=== PATIENT | male | born 1975 | race Caucasian/White ===

== ENCOUNTER 2018-06-11 09:07 | Emergency (ER) | payer OTHER, MEDICAID ==
[~2018-06-11] VITALS: Ht 160 cm; Wt 64.0 kg
[2018-06-11 09:08] VITALS: BP 123/57
--- NOTE | 2018-06-11 09:15 | NUR ---
PATIENT AMBULATED WITH ASSISTANCE TO BED 1
[2018-06-11] MEDS ORDERED: BISA5ECT43 PO (09:24)
--- NOTE | 2018-06-11 09:25 | NUR ---
42 yo m bib caregivers from [facility] for a laceration to the chin s/p fall onto hard wood devendra x this AM. per caregivers, pt was having a behavioral outburst (usual to baseline) and threw himself to the floor, bumping chin. approx 0.5 inch laceration to chin noted, bleeding controlled. DENIES loc OR n/v. neuro to baseline. perrla. rr even and unlabored. hx severe intellectual disability, hyperkalemia, hypothyroidism, behavioral issue rx bisacodyl prn, mineral oil, unifiber powder, saline mist, quetiapine, levothyroxine, docusate, promethazine, lorazepam, risperidone, benztropine
[2018-06-11] MEDS ORDERED: FLEMIN PO (09:26)
--- NOTE | 2018-06-11 09:27 | NUR ---
Patient being evaluated by DR SHAH at bedside.
[2018-06-11] MEDS ORDERED: QUET200T43 PO (09:29)
[2018-06-11] MEDS ORDERED: [UNRECOGNIZED DRUG - CODE] PO (09:29)
[2018-06-11] MEDS ORDERED: [UNRECOGNIZED DRUG - CODE] PO (09:29)
[2018-06-11] MEDS ORDERED: SODI45SP3 NS (09:29)
[2018-06-11] MEDS ORDERED: LEVO0.029 PO (09:29)
[2018-06-11] MEDS ORDERED: LIDOCAINE 2% 1000 MG/50 ML VIAL INJ ONE ×2 (09:30→09:39)
[2018-06-11] MEDS ORDERED: DOCU-299 PO (09:32)
[2018-06-11] MEDS ORDERED: LORA-476 PO (09:32)
[2018-06-11] MEDS ORDERED: PHE25S PO (09:32)
[2018-06-11] MEDS ORDERED: RISP0.5T3 PO (09:35)
[2018-06-11] MEDS ORDERED: ACET325T66 PO (09:35)
[2018-06-11] MEDS ORDERED: BENZ-248 PO (09:35)
--- NOTE | 2018-06-11 10:16 | NUR ---
SUTURE LAC WOUND TO CHIN DONE BY DR SHAH. PT TOLERATED PROCEDURE WELL.
[2018-06-11] MEDS ORDERED: BACITRACIN OINT 500 UNITS/GM PKT TP ONE (10:25)
--- NOTE | 2018-06-11 10:28 | NUR ---
CLEAN WOUND BY WAYNE MCKEON
[2018-06-11 10:29] VITALS: BP 121/61
--- NOTE | 2018-06-11 10:29 | NUR ---
Patient discharged with v/s stable. Written and verbal after care instructions given and explained. Patient verbalized understanding. Ambulatory with steady gait. All questions addressed prior to discharge. Advised to follow up with PMD.
== END 2018-06-11 10:29 | disposition home or self-care (01) ==
LOC: MED 09:07
DX: S01.81XA Laceration without foreign body of other part of head, initial encounter (principal); F79 Unspecified intellectual disabilities; Z88.8 Allergy status to other drugs, medicaments and biological substances; Z79.899 Other long term (current) drug therapy; Z79.1 Long term (current) use of non-steroidal anti-inflammatories (NSAID); W22.8XXA Striking against or struck by other objects, initial encounter; Y93.89 Activity, other specified; Y92.210 Daycare center as the place of occurrence of the external cause; Y99.8 Other external cause status
CPT/HCPCS: 12013; 99283; J2001

== ENCOUNTER 2019-01-16 11:50 | Inpatient (IN) | payer OTHER, MEDICAID ==
[~2019-01-16] VITALS: Ht 165.1 cm; Wt 63.0 kg
[~2019-01-16 11:50] MED LIST: ACET325T66 PO; BENZ-248 PO; BISA5ECT43 PO; DOCU-299 PO; FLEMIN PO; LEVO0.029 PO; LORA-476 PO; PHE25S PO; QUET200T43 PO; RISP0.5T3 PO; SODI45SP3 NS; [UNRECOGNIZED DRUG - CODE] PO; [UNRECOGNIZED DRUG - CODE] PO
[2019-01-16] MEDS ORDERED: TRAZ-343 PO (12:04)
--- NOTE | 2019-01-16 13:22 | NUR ---
Patient being evaluated by physician at bedside.
--- NOTE | 2019-01-16 13:22 | NUR ---
PT TAKEN TO BED 8.
--- NOTE | 2019-01-16 13:24 | NUR ---
ER AT BEDSIDE
[2019-01-16] MEDS ORDERED: NACL 0.9% 1,000 ML IV SCH (13:27)
[2019-01-16] MEDS ORDERED: LORazepam 2 MG/ML VIAL IVP ONE ×2 (13:30→16:10)
--- NOTE | 2019-01-16 13:36 | NUR ---
PT BIB MOLD POLISHER C/O VOMMITING. MOLD POLISHER REPORTS 2-3 EPISODES OF EMESIS TODAY. LAST BM YESTERDAY. PT FROM [facility]". VSS. HX---PROFOUND ID, RX===
[2019-01-16] MEDS ORDERED: HALOPERIDOL IM 5 MG/ML VIAL IM ONE ×2 (14:10→15:50)
--- NOTE | 2019-01-16 14:11 | NUR ---
PT STILL AGITATED, ROLLING IN BED, TRYING TO PULL OUT IV, PT HAS 2 CARETAKERS SITTING W/ PT PREVENTING HIM FROM PULLING OUT IV/FALLING ON FLOOR. ER MD NOTIFIED THAT ATIVAN DID NOT CALM PT.
[2019-01-16 14:16] LABS: BASOPHILS % (AUTO) 0.4 % (0.0-2.0); EOSINOPHILS # (AUTO) 0.1 K/uL (0-0.4); EOSINOPHILS % (AUTO) 0.9 % (0.0-4.0); HEMATOCRIT 38.3 % (36-52); HEMOGLOBIN 12.8 g/dL (12.0-18.0); LYMPHOCYTES # (AUTO) 0.8 K/uL (2.0-11.5); LYMPHOCYTES % (AUTO) 8.2 % (20.5-51.1); MEAN CORPUSCULAR HEMOGLOBIN 33 pg (27-31); MEAN CORPUSCULAR HGB CONC 33 g/dL (33-37); MEAN CORPUSCULAR VOLUME 97.2 fL (80-94); MONOCYTES # (AUTO) 0.4 K/uL (0.8-1.0); MONOCYTES % (AUTO) 4.4 % (1.7-9.3); NEUTROPHILS # (AUTO) 7.9 K/uL (1.8-7.7); NEUTROPHILS % (AUTO) 86.1 % (42.2-75.2); PLATELET COUNT (AUTO) 221 K/uL (140-450); RED BLOOD CELL COUNT(AUTO) 3.94 MIL/uL (4.20-6.10); RED CELL DISTRIBUTION WIDTH 13.9 % (11.6-13.7); WHITE BLOOD COUNT (AUTO) 9.2 K/uL (4.8-10.8)
[2019-01-16 14:31] LABS: PROTHROMBIN TIME 10.9 secs (10.8-13.4)
[2019-01-16 15:02] LABS: CARBON DIOXIDE 25.8 mmol/L (21-32); CREATININE 1.4 mg/dL (0.7-1.3); POTASSIUM 3.8 mmol/L (3.5-5.1); TOTAL BILIRUBIN 0.4 mg/dL (0.0-1.0)
[2019-01-16 15:03] LABS: ALBUMIN 2.4 g/dL (3.4-5.0)
[2019-01-16 15:39] LABS: APPEARANCE,URINE CLEAR (CLEAR); BILIRUBIN,URINE NEGATIVE (NEGATIVE); BLOOD, URINE NEGATIVE (NEGATIVE); COLOR,URINE YELLOW (YELLOW); LEUKOCYTE ESTERASE ,URINE NEGATIVE (NEGATIVE); NITRITE, URINE NEGATIVE (NEGATIVE); UGLUCOSE NEGATIVE (NEGATIVE)
[2019-01-16] MEDS ORDERED: NACL 0.9% 1,000 ML IV ONE (15:50)
--- NOTE | 2019-01-16 15:57 | NUR ---
X-RAY AT BEDSIDE
--- NOTE | 2019-01-16 16:00 | NUR ---
PT HAS TO BE HELD BY CARETAKERS TO OBTAIN X-RAY, UNABLE TO GET VITAL SIGNS, PT REFUSES TO WEAR HOSPITAL GOWN, NITHYA BOURGEOIS MADE AWARE.
--- NOTE | 2019-01-16 16:24 | NUR ---
PT STILL UNWILLING TO LAY IN BED, UNABLE TO PERFORM CT, ER MADE AWARE
[2019-01-16] MEDS ORDERED: ONDANSETRON 4 MG/2 ML VIAL IVP ONE (16:50)
[2019-01-16] MEDS ORDERED: fentaNYL 0.05 MG/ML VIAL IVP ONE ×2 (16:50→18:10)
--- NOTE | 2019-01-16 17:08 | NUR ---
PT O2 DROPPED TO 90%, PLACED ON 2L VIA NASAL CANNULA, 02 INCREASED TO 95%
--- NOTE | 2019-01-16 17:09 | NUR ---
PT GOING TO CT AT THIS TIME
--- NOTE | 2019-01-16 17:24 | NUR ---
Patient returned from CT and placed in bed 8.
--- NOTE | 2019-01-16 17:25 | NUR ---
PT RETURNED FROM CT AT THIS TIME
--- NOTE | 2019-01-16 17:33 | NUR ---
LAB AT BEDSIDE
[2019-01-16] MEDS ORDERED: ONDANSETRON 4 MG/2 ML VIAL IVP PRN (17:45)
[2019-01-16] MEDS ORDERED: HYDROcodone/APAP 7.5/325 MG 1 TAB PO PRN (17:45)
[2019-01-16] MEDS ORDERED: ACETAMINOPHEN 325 MG TAB PO PRN (17:45)
[2019-01-16] MEDS ORDERED: LIDOCAINE MPF 1% 10 MG/ML VIAL INJ ONE (18:10)
[2019-01-16] MEDS ORDERED: MIDAZOLAM 2 MG/2 ML VIAL IVP ONE (18:10)
[2019-01-16] MEDS ORDERED: PIPERACILLIN/TAZOBACTAM 3.375 GM in DEXTROSE 5% 50 ML IV SCH (18:30)
[2019-01-16 18:39] LABS: FREE T4 (FREE THYROXINE) 1.14 ng/dL (0.76-1.46); MAGNESIUM 1.6 mg/dL (1.8-2.4); THYROID STIMULATING HORMONE 0.25 uIU/mL (0.34-3.74)
--- NOTE | 2019-01-16 18:58 | NUR ---
# 14 FR NG tube placed to RT nare. Placement checked by auscultation of instilled air into stomach and aspiration of gastric contents. Tubing taped in place to prevent dislodging. PT ATTEMPTING TO REMOVE NG TUBE, PLACED IN SOFT RESTRANTS, 2 OF PT CARETAKERS SITTING AT BEDSIDE TO MAKE SURE PT DOES NOT REMOVE NG TUBE.
[2019-01-16] MEDS ORDERED: metroNIDAZOLE 500 MG/NS PREMIX 100 ML IV SCH (19:00)
[2019-01-16] MEDS ORDERED: PIPERACILLIN/TAZOBACTAM 3.375 GM VIAL IV ONE ×2 (19:03→23:10)
--- NOTE | 2019-01-16 19:03 | NUR ---
XRAY AT BEDSIDE.
--- NOTE | 2019-01-16 19:15 | NUR ---
RECEIVED REPORT FROM JORY GOMES. PT IN BED AWAKE, RR EVEN UNLABORED, PT CALM AT THIS TIME, PRIVATE CAREGIVER AT BEDSIDE. PT TO BE ADMITTED, AWAITING FOR SURGEON TO SEE PT. WILL CONTINUE TO MONITOR CLOSELY.
--- NOTE | 2019-01-16 19:20 | NUR ---
PT HAS CONSERVATORSHIP, PER INVENTORY SPECIALIST MANAGER MOTHER IS CONSERVATOR. HER NAME IS CLEOPATRA, PHONE # [phone] AND [phone].
--- NOTE | 2019-01-16 19:46 | NUR ---
DR. ELENA AT BEDSIDE
[2019-01-16] MEDS ORDERED: fentaNYL 0.05 MG/ML VIAL ONE (19:57)
[2019-01-16] MEDS ORDERED: MIDAZOLAM 2 MG/2 ML VIAL ONE (19:57)
[2019-01-16] MEDS ORDERED: MEPERIDINE 50 MG/ML SYR ONE (19:58)
--- NOTE | 2019-01-16 19:59 | NUR ---
OR TEAM AT BEDSIDE
--- NOTE | 2019-01-16 20:04 | NUR ---
Patient will be admitted to care of DR. FRY. PT TRANPORTED TO OR FOR PROCEDURE, TRANSPORTED BY 2 OR NURSES, BEDSIDE REPORT GIVEN TO JORY JAMES. PT IN STABLE CONDITION UPON TRANSPORT VIA GURNEY TO OR.
--- NOTE | 2019-01-16 20:04 | NUR ---
OR TEAM HERE, REPORT GIVEN TO JORY JAMES. PT TRANSPORTED TO OR VIA JASMINE WOODSON IN STABLE CONDITION AT THIS TIME.
--- NOTE | 2019-01-16 20:04 | NUR ---
DR. MCLEOD AT BEDSIDE
[2019-01-16] MEDS ORDERED: GLYCOPYRROLATE 0.2 MG/ML VIAL ONE (20:10)
[2019-01-16] MEDS ORDERED: SUCCINYLCHOLINE CHLORIDE 200 MG/10 ML VIAL IVP ONE (20:10)
[2019-01-16] MEDS ORDERED: SEVOFLURANE 250 ML BTL INH ONE (20:10)
[2019-01-16] MEDS ORDERED: PROPOFOL 200 MG/20 ML VIAL IV ONE (20:10)
[2019-01-16] MEDS ORDERED: NEOSTIGMINE 1:1000 10 MG/10 ML VIAL ONE (20:10)
[2019-01-16] MEDS ORDERED: ROCURONIUM 50 MG/5 ML VIAL IV ONE (20:10)
[2019-01-16] MEDS ORDERED: traZODone 50 MG TAB PO PRN (20:20)
[2019-01-16] MEDS ORDERED: PROMETHAZINE 25 MG SUPP RC PRN (20:20)
[2019-01-16] MEDS ORDERED: DOCUSATE SODIUM 100 MG GELCAP PO SCH (21:00)
[2019-01-16] MEDS ORDERED: SODIUM CHLORIDE 0.65% 45 ML BTL NS SCH (21:00)
[2019-01-16] MEDS ORDERED: METHYLENE BLUE 1% 10 MG/ML AMP ONE (21:32)
[2019-01-16] MEDS ORDERED: POTASSIUM CHLORIDE 10 MEQ in LACTATED RINGERS 1,000 ML IV SCH (22:00)
--- NOTE | 2019-01-16 22:20 | NUR ---
ADMITTED PT FROM SURGERY S/P EXPLORATORY LAPAROTOMY VIA BED.WITH SURGICAL TEAM AT BEDSIDE.REPORT GIVEN BY RONNIE MEHTA RN AND DR GOMEZ. MONITORS ATTACHED.SR ON MONITOR.PT ON FACE MASK AT 6LPM.PT HAS HX OF DOWNS SYNDROME AND PROFOUND INTELLECTUAL DISABILITY.PUPILS BRISK.W/NGT TO RT NARES CLAMPED.IN PLACE.W/MICHELLE DRAIN TO RT ABDOMEN,SCANTY SEROSANGUINEOUS OUTPUT NOTED.W/DRY AND INTACT DRESSING TO ABDOMENW/PERIPHERAL IV TO LT F/A G20 INTACT INFUSING ORDERED IVF.W/CALZADA CATHETER TO BSD DRAINING SMALL AMT OF YELLOW URINE.FLACC 0
[2019-01-16 22:30] VITALS: BP 116/64
--- NOTE | 2019-01-16 22:30 | NUR ---
PER REPORT; PT WAS ON 4 POINT RESTRAINTS IN ER.PT TRIES TO PULL OUT NGT AND IV. DR RODRIGUEZ AT BEDSIDE AND ORDERED BILATERAL SOFT WRIST RESTRAINTS.CONSENT FROM PTS MOTHER OBTAINED.
--- NOTE | 2019-01-16 23:00 | NUR ---
NGT CONNECTED TO LOW INTERMITTENT SUCTION ORDERED BY DR ELENA WITH 20ML NORMAL SALINE FLUSH Q6HRS.
[2019-01-16] MEDS ORDERED: metroNIDAZOLE 500 MG TAB ONE (23:08)
[2019-01-16] MEDS ORDERED: risperiDONE 1 MG TAB ONE (23:09)
[2019-01-16] MEDS: LORazepam 1 MG TAB PO SCH (23:16)
[2019-01-16] MEDS: risperiDONE 1 MG TAB PO SCH (23:16)
[2019-01-16] MEDS: DEXT 5% / NACL 0.45% 1,000 ML IV SCH (23:17)
[2019-01-16] MEDS: PIPERACILLIN/TAZOBACTAM 3.375 GM in DEXTROSE 5% 50 ML IV SCH (23:18)
[2019-01-16] MEDS ORDERED: metroNIDAZOLE 500 MG/NS PREMIX 100 ML IV ONE (23:19)
--- NOTE | 2019-01-16 23:20 | NUR ---
PHONE CALL TO DR RODRIGUEZ RE; WITH ONE DOSE FLAGYL ORDERED AT 1900; NOT GIVEN UP TO THIS TIME; PT ADMITTED IN ICU AT 2220; DR RODRIGUEZ SAID TO ADMINISTER THE FLAGYL Addendum: 01/17/19 at 2026 by Paula Santoyo RN FLAGYL AND ZOSYN SCANNED AND ADMINISTERED;
[2019-01-16] MEDS: BENZTROPINE 1 MG TAB PO SCH (23:27)
[2019-01-16] MEDS ORDERED: MORPHINE SULFATE 2 MG/ML SYR IVP PRN (23:30)
[2019-01-17] VITALS (11 sets, daily range): BP systolic 87–125; BP diastolic 57–73
[2019-01-17] MEDS: LORazepam 2 MG/ML VIAL IVP PRN ×2 (01:10→09:43)
--- NOTE | 2019-01-17 01:10 | NUR ---
PT RESTLESS/AGITATED; ATIVAN GIVEN ORDERED.
--- NOTE | 2019-01-17 03:20 | NUR ---
PTS EYES CLOSED.NOT IN ANY DISTRESS AT THIS TIME.NSR ON MONITOR.FLACC 0.STILL WITH BILATERAL SOFT WRIST RESTRAINTS IN PLACE.NO SIGNS OF INJURIES NOTED.
[2019-01-17] MEDS ORDERED: PIPERACILLIN/TAZOBACTAM 3.375 GM VIAL IV ONE (04:25)
[2019-01-17] MEDS: PIPERACILLIN/TAZOBACTAM 3.375 GM in DEXTROSE 5% 50 ML IV SCH ×3 (05:03→18:09)
[2019-01-17] MEDS: LEVOTHYROXINE 0.025 MG TAB PO SCH (05:52)
--- NOTE | 2019-01-17 06:10 | NUR ---
PTS CONDITION REMAINS UNCHANGED.NGT TO RT NARES CLAMPED AT THIS TIME, LEVOTHYROXINE GIVEN ORDERED.PERIPHERAL IV INTACT INFUSING ORDERED IVF.BILATERAL SOFT WRIST RESTRAINTS STILL IN PLACE; PT TRIES TO PULL NGT/DRESSING WHEN AWAKE.MICHELLE DRAIN INTACT WITH 60ML SEROUS DRAINAGE NOTED.CALZADA CATHETER INTACT 200ML URINE OUTPUT.
[2019-01-17 06:22] LABS: ANION GAP 11.4 (8-16); CARBON DIOXIDE 26.1 mmol/L (21-32); CREATININE 1.5 mg/dL (0.7-1.3); POTASSIUM 4.5 mmol/L (3.5-5.1)
[2019-01-17 06:26] LABS: MAGNESIUM 1.6 mg/dL (1.8-2.4); PHOSPHORUS 3.2 mg/dL (2.5-4.9)
[2019-01-17 06:32] LABS: CHOL/HDL RATIO 2.7 (1-4.5)
[2019-01-17 06:55] LABS: BASOPHILS % (AUTO) 0.1 % (0.0-2.0); EOSINOPHILS % (AUTO) 0.1 % (0.0-4.0); HEMATOCRIT 42.1 % (36-52); HEMOGLOBIN 13.9 g/dL (12.0-18.0); LYMPHOCYTES # (AUTO) 0.3 K/uL (2.0-11.5); LYMPHOCYTES % (AUTO) 2.7 % (20.5-51.1); MEAN CORPUSCULAR HEMOGLOBIN 33 pg (27-31); MEAN CORPUSCULAR HGB CONC 33 g/dL (33-37); MEAN CORPUSCULAR VOLUME 98.3 fL (80-94); MONOCYTES # (AUTO) 0.5 K/uL (0.8-1.0); MONOCYTES % (AUTO) 4.5 % (1.7-9.3); NEUTROPHILS # (AUTO) 9.9 K/uL (1.8-7.7); NEUTROPHILS % (AUTO) 92.6 % (42.2-75.2); PLATELET COUNT (AUTO) 205 K/uL (140-450); RED BLOOD CELL COUNT(AUTO) 4.28 MIL/uL (4.20-6.10); RED CELL DISTRIBUTION WIDTH 14.2 % (11.6-13.7); WHITE BLOOD COUNT (AUTO) 10.7 K/uL (4.8-10.8)
--- NOTE | 2019-01-17 07:20 | NUR ---
RECEIVED PT FROM PM NURSE. PT SLEEPING AT THIS TIME. BEDSIDE MONITOR SHOWS SR 98. BP 112/71, RR 25. SPO2 96%. PT ON O2 NC 2L/MIN, NO S/S OF RESPIRATORY DISTRESS NOTED. PT HAS NG TUBE TO RT NARE CONNECTED TO LOW INTERMITTENT SUCTION. PT ALSO HAS MICHELLE DRAIN IN PLACE. PT HAS IV TO LEFT F/A # 20 RUNNING D5 1/2 NS AT 100 ML/HR. SURGICAL SITE DRY , DR. ELENA SURGEON AT BEDSIDE TO ASSESS PT. PT HAS HAS F/C IN PLACE. CALLED RADIOLOGIST DEPARTMENT FOR XR UPPER GI W GASTROGRAFFIN. TEMP 100.1 F. WILL GIVE ICE BAGS. HOB ELEVATED IN 30 DEGREE WITH LOW BED POSITION. WILL CONTINUE TO MONITOR.
--- NOTE | 2019-01-17 08:56 | NUR ---
PATIENT HAS BEEN SCREENED AND CATEGORIZED HIGH NUTRITION RISK. PATIENT WILL BE SEEN WITHIN 1-2 DAYS OF ADMISSION. 01/17/19-01/18/[address]
--- NOTE | 2019-01-17 09:20 | NUR ---
pt left unit for gastrograffin at 0820, accompanied with RN and Tech. pt was agitated in x-ray room. Ativan 1 mg given at 0825. pt came back at 0920 without incidence.
[2019-01-17] MEDS: LORazepam 1 MG TAB PO SCH ×2 (09:41→21:54)
[2019-01-17] MEDS: QUEtiapine FUMARATE 100 MG TAB PO SCH ×3 (09:41→18:08)
--- NOTE | 2019-01-17 09:41 | NUR ---
pt temp 100.4 F. Tylenol given as ordered.
[2019-01-17] MEDS: DOCUSATE 100 MG/10 ML UDC GT SCH ×2 (09:42→21:54)
[2019-01-17] MEDS: BENZTROPINE 1 MG TAB PO SCH ×2 (10:03→21:54)
[2019-01-17] MEDS: risperiDONE 1 MG TAB PO SCH ×2 (10:03→21:55)
[2019-01-17] MEDS: SODIUM CHLORIDE 0.65% 45 ML BTL NS SCH ×2 (10:04→21:56)
[2019-01-17] MEDS ORDERED: KETOROLAC 15 MG/ML VIAL IVP SCH (11:02)
--- NOTE | 2019-01-17 11:07 | NUR ---
pt temp increased to 101 F, notified dr. Ballard. order received, will carry out.
[2019-01-17] MEDS: DEXT 5% / NACL 0.45% 1,000 ML IV SCH ×3 (11:20→23:21)
--- NOTE | 2019-01-17 11:30 | NUR ---
RECHECKED TEMP 99.1F.
--- NOTE | 2019-01-17 11:58 | NUR ---
NG TUBE PULLED OUT PER PHONE CALL FROM RADIOLOGIST. DR. ZAMAN MADE AWARE. PLASTIC CANISTER HAS 150 CC GREENISH SECRETION .
[2019-01-17] MEDS: MAG SULF 2000 MG/WATER PREMIX 100 ML IV SCH ×2 (12:29→14:43)
--- NOTE | 2019-01-17 12:30 | NUR ---
pt's temp decreased to F98.6
--- NOTE | 2019-01-17 13:30 | NUR ---
in to check pt. had conversation with pt's parent.
--- NOTE | 2019-01-17 14:30 | NUR ---
INSERTED NG TUBE TO RIGHT NARE. GREENISH SECRETION COMING OUT FROM NG TUBE. SECURED WITH TAPE.
--- NOTE | 2019-01-17 16:11 | NUR ---
01/17/19 RD INITIAL ASSESSMENT COMPLETED PLEASE REFER TO NUTRITION ASSESSMENT UNDER CARE ACTIVITY FOR ESTIMATED NUTRITIONAL NEEDS. 1. CONTINUE NPO MEDICALLY APPROPRIATE 2. CONSIDER SWALLOW EVALUATION 3. CONSIDER REGULAR DIET WITH FOOD TEXTURES AND LIQUID CONSISTENCIES RECOMMENDED BY SPEECH THERAPIST 4. RD TO FOLLOW-UP 2-3 DAYS, HIGH RISK COLETTE HARTLEY RD
--- NOTE | 2019-01-17 16:30 | NUR ---
pt resting quietly in bed. no s/s of respiratory distress noted.
--- NOTE | 2019-01-17 18:49 | NUR ---
RECEIVED PATIENT ON 2L NASAL CANNULA, PULSE OX SAT 95%. NO ACUTE RESPIRATORY DISTRESS NOTED AT THIS TIME. WILL CONTINUE TO MONITOR.
--- NOTE | 2019-01-17 19:00 | NUR ---
endorsed pt to pm nurse. pt vitals stable at this moment.
--- NOTE | 2019-01-17 20:05 | NUR ---
PT ASLEEP. REMOVED BILATERAL ANKLE RESTRAINTS. WILL REASSESS FOR NEED LATER.
--- NOTE | 2019-01-17 22:44 | NUR ---
PT AT BED AWAKE. PERRL 3MM, PT CALM, COOPERATIVE, HEART RATE REGULAR S1S2 PRESENT, PULSES 2+ BILATERAL UPPER AND LOWER EXTREMITIES, CAP REFILL <3S, LUNG SOUNDS CLEAR THROUGHOUT, PT HAS NC RUNNING 02 AT 2L/MIN, ABDOMEN, SOFT, ROUND, NONDISTENDED, NONTENDER, PT HAS NG TUBE AT RIGHT NARE ON INTERMITTENT SUCTION, SUCTIONED BROWN LIQUID, BLADDER, SOFT, ROUND, NONDISTENDED, NONTENDER, FC IN PLACE, DRAINING YELLOW CLEAR URINE, PT HAS GENERALIZED WEAKNESS, PT HAS BILATERAL SCD IN PLACE. SKIN INTACT, COLOR APPROPRIATE FOR ETHNICITY, SKIN DRY, WARM, NON-ELASTIC PT HAS LEFT FA 20 GAUGE IV RUNNING D5 1/2 NS AT 100 ML/HR. HOB 30 DEGREES, SIDERAILS UP X2, BED AT LOWEST POSITION. Addendum: 01/17/19 at 2309 by Hamlet Castellanos RN CORRECTION: TIME 191 Addendum: 01/18/19 at 0206 by Hamlet Castellanos RN BILATERAL SOFT WRIST AND ANKLES RESTRAINTS PRESENT
--- NOTE | 2019-01-17 22:50 | NUR ---
UPDATED DR. ELENA ABOUT PT PRELIMINARY REPORT FOR XRAY UPPER GI AND SMALL BOWEL XRAY. NO NEW ORDERS AT THIS TIME.
[2019-01-18] VITALS: BP 98/56
--- NOTE | 2019-01-18 01:20 | NUR ---
PT AT BED EYES CLOSED, BREATHING REGULARLY, 02 2L/MIN NC IN PLACE, HOB 30 DEGREES, SIDE RAILS UP X2, BED AT LOWEST POSITION, WILL CONTINUE TO MONITOR.
[2019-01-18 04:00] VITALS: BP 107/54
[2019-01-18] MEDS: LORazepam 2 MG/ML VIAL IVP PRN ×2 (05:46→10:37)
--- NOTE | 2019-01-18 06:20 | NUR ---
TRANSFERRED TO TELEMETRY FLOOR, REPORT GIVEN TO AM NURSE. PT AT STABLE CONDITION AT THIS TIME.
[2019-01-18 06:42] LABS: BASOPHILS % (AUTO) 0.1 % (0.0-2.0); EOSINOPHILS # (AUTO) 0.8 K/uL (0-0.4); HEMATOCRIT 36.8 % (36-52); HEMOGLOBIN 12.3 g/dL (12.0-18.0); LYMPHOCYTES # (AUTO) 0.6 K/uL (2.0-11.5); MEAN CORPUSCULAR HEMOGLOBIN 33 pg (27-31); MEAN CORPUSCULAR HGB CONC 34 g/dL (33-37); MEAN CORPUSCULAR VOLUME 97.7 fL (80-94); MONOCYTES # (AUTO) 0.4 K/uL (0.8-1.0); MONOCYTES % (AUTO) 5.8 % (1.7-9.3); NEUTROPHILS # (AUTO) 5.7 K/uL (1.8-7.7); NEUTROPHILS % (AUTO) 75.1 % (42.2-75.2); PLATELET COUNT (AUTO) 156 K/uL (140-450); RED BLOOD CELL COUNT(AUTO) 3.77 MIL/uL (4.20-6.10); RED CELL DISTRIBUTION WIDTH 14.2 % (11.6-13.7); WHITE BLOOD COUNT (AUTO) 7.6 K/uL (4.8-10.8)
[2019-01-18] MEDS: LEVOTHYROXINE 0.025 MG TAB PO SCH (06:46)
--- NOTE | 2019-01-18 07:25 | NUR ---
RECEIVED REPORT FROM ROD PILER RNNE. PATIENT HAS NG TUBE IN PLACE, IS ON 2 L O2 VIA NC, CALZADA IN PLACE, AND 20 GAUGE IV CATHETER IN LEFT FOREARM SALINE LOCKED. PATIENT IS ON 2 POINT RESTRAINTS TO BOTH LEFT AND RIGHT UPPER EXTREMITY. PATIENT IS NON-VERBAL AND IS CURRENTLY RELAXED SHOWING NO SIGNS OF RESTLESSNESS OR DISTRESS. BED IS LOW. WILL CONTINUE TO MONITOR
[2019-01-18] MEDS ORDERED: MORPHINE SULFATE 2 MG/ML SYR IVP PRN (07:50)
[2019-01-18 07:56] LABS: ANION GAP 8.5 (8-16); CARBON DIOXIDE 27.5 mmol/L (21-32); CREATININE 1.3 mg/dL (0.7-1.3)
[2019-01-18 08:00] VITALS: BP 104/65
[2019-01-18 08:02] LABS: ALBUMIN 1.8 g/dL (3.4-5.0); MAGNESIUM 2.3 mg/dL (1.8-2.4); PHOSPHORUS 2.4 mg/dL (2.5-4.9); TOTAL BILIRUBIN 0.6 mg/dL (0.0-1.0)
[2019-01-18] MEDS: LORazepam 1 MG TAB PO SCH ×3 (09:00→18:26)
--- NOTE | 2019-01-18 09:20 | NUR ---
WOUND CARE CONSULT NOT DONE, SPOKE TO DR. ELENA , HE WILL BE IN TO DO FIRST DRESSING CHANGE TODAY. PRIMARY RN AND CN NOTIFIED.
--- NOTE | 2019-01-18 09:25 | NUR ---
PATIENT RELEASED FROM RESTRAINTS, PATIENT IMMEDIATELY ATTEMPTS TO REMOVED TUBES AND LINES. PROVIDED ROM, CIRCULATION CHECKS DONE, NO SIGNS OF INJURY. IV SITE FLUSHES WELL. REPLACED RESTRAINTS. BED LOW, NO DISTRESS NOTED. WILL CONTINUE TO MONITOR
[2019-01-18] MEDS: DOCUSATE 100 MG/10 ML UDC GT SCH ×2 (11:03→21:24)
[2019-01-18] MEDS: BENZTROPINE 1 MG TAB PO SCH ×2 (11:03→21:24)
[2019-01-18] MEDS: QUEtiapine FUMARATE 100 MG TAB PO SCH ×3 (11:03→18:26)
[2019-01-18] MEDS: risperiDONE 1 MG TAB PO SCH ×2 (11:03→21:24)
[2019-01-18] MEDS: SODIUM CHLORIDE 0.65% 45 ML BTL NS SCH ×2 (11:28→21:00)
--- NOTE | 2019-01-18 11:28 | NUR ---
ADMINISTERED IV ATIVAN 1 MG FOR AGITATION. ADMINISTERED SCHEDULED MEDICATIONS BUT HELD THE 1MG PO ATIVAN DUE TO RECENT ADMINISTRATION OF IV ATIVAN. HELD HEPARIN DUE TO PLATELETS OF 156 AND RECENT SURGERY, DOCTOR AWARE. ADMINISTERED IV FLUIDS. EMPTIED 100 ML FORM MICHELLE DRAIN SEROSANGUINEOUS FLUID. REPOSITIONED PATIENT FOR COMFORT, PROVIDED RESPITE FROM RESTRAINTS. PATIENT IMMEDIATELY ATTEMPTS TO REMOVE DRESSING, LINES, AND TUBES. CIRCULATION CHECKS DONE, NO SIGN OF INJURY, PROVIDED ROM. REPLACED RESTRAINTS. BED IS LOW. CALZADA CATHETER IN PLACE DRAINING CLEAR STRAW COLORED URINE. WILL CONTINUE TO MONITOR.
[2019-01-18] MEDS: DEXT 5% / NACL 0.45% 1,000 ML IV SCH (11:59)
--- NOTE | 2019-01-18 13:30 | NUR ---
REPOSITIONED PATIENT FOR COMFORT, PROVIDED RESPITE FROM RESTRAINTS. PATIENT IMMEDIATELY ATTEMPTS TO REMOVE DRESSING, LINES, AND TUBES. CIRCULATION CHECKS DONE, NO SIGN OF INJURY, PROVIDED ROM. REPLACED RESTRAINTS. EMPTIED 100 ML FORM MICHELLE DRAIN SEROSANGUINEOUS FLUID. CALZADA CATHETER IN PLACE DRAINING CLEAR STRAW COLORED URINE. BED IS LOW. WILL CONTINUE TO MONITOR.
--- NOTE | 2019-01-18 15:30 | NUR ---
ADMINISTERED IV MORPHINE 4 MG FOR PAIN. EMPTIED 100 ML FORM MICHELLE DRAIN SEROSANGUINEOUS FLUID. DISCONTINUED CALZADA CATHETER. REPOSITIONED PATIENT FOR COMFORT, PROVIDED RESPITE FROM RESTRAINTS. PATIENT IMMEDIATELY ATTEMPTS TO REMOVE DRESSING, LINES, AND TUBES. CIRCULATION CHECKS DONE, NO SIGN OF INJURY, PROVIDED ROM. REPLACED RESTRAINTS. BED IS LOW. CALZADA CATHETER IN PLACE DRAINING CLEAR STRAW COLORED URINE. WILL CONTINUE TO MONITOR Addendum: 01/18/19 at 2028 by Malaika Domínguez RN CALZADA WAS DISCONTINUED AT THIS TIME.
--- NOTE | 2019-01-18 17:25 | NUR ---
REPOSITIONED PATIENT FOR COMFORT, PROVIDED RESPITE FROM RESTRAINTS. PATIENT IMMEDIATELY ATTEMPTS TO REMOVE DRESSING, LINES, AND TUBES. CIRCULATION CHECKS DONE, NO SIGN OF INJURY, PROVIDED ROM. REPLACED RESTRAINTS. BED IS LOW. WILL CONTINUE TO MONITOR.
--- NOTE | 2019-01-18 19:15 | NUR ---
GAVE REPORT TO BUSINESS TAXES SPECIALIST RN, WILDA. ENDORSING PATIENT IN STABLE CONDITION.
--- NOTE | 2019-01-18 19:17 | NUR ---
RECEIVED PT IN STABLE CONDITION FROM AM NURSE. PT IS MED SURG. WITH NO ACUTE DISTRESS NOTED. ON O22L.NC. AWAKE, BUT APHASIC. IVF INFUSING WELL ON ELT FAG#20. PT NEED TO VOID .WILL MONITOR. HAS NGT TO INTERMITTENT SUCTION. MID ABDOMEN HAS INCISIONS WITH DAYO INTACT. NO BLEEDING ,SWELLING NOTED. SMALL DRESSING ON THE RT LOWER SIDE ABDOMEN. DRY AND CLEAN. BUT ABDOMEN EVENING ANCHOR. BED ON LOW POSITION, FREQ ROUNDS. STILL WITH PEG SOFT WRIST RESTRAINT AND MITTENS DUE TO PREVENTION OF PULLING OF TUBINGS. BED ALARM ON. CALL LIGHT PLACED WITHIN REACH. WILL CONTINUE TO MONITOR.
--- NOTE | 2019-01-18 21:25 | NUR ---
LUKE TO GIVE DUE MEDS THRU NGT. WILL CLAMPED FOR AN HOUR THEN WILL RESTART TO INTERMITTENT SUCTION.
--- NOTE | 2019-01-18 23:00 | NUR ---
PT PULLED OUT RESTRAINTS AND NGT WHILE HE GET OUT OF BED. ASSISTED PT BACK TO BED WITH 4 PERSONS ASSISTANCE. V/S TAKEN . STABLE. DR. ELENA AT STATION AND MADE HIM AWARE . HE SAID OK NOT TO PUT IT BACK. PT ALREADY VOIDED. DRESSING ON THE RT ABDOMEN INTACT. MID ABDOMINAL INCISIONS WITH DAYO INTACT. NO BLEEDING NOTED.
[2019-01-19] VITALS: BP 111/65
--- NOTE | 2019-01-19 02:00 | NUR ---
PT ASLEEP. NO S/S OF ANY DISCOMFORT NOTED. WILL CONTINUE TO MONITOR.
--- NOTE | 2019-01-19 04:32 | NUR ---
WAS CALLED REGARDING DIET. SHE SAID THEY WILL HAVE SURGEON TO DECIDE. JUST KEEP NPO FOR NOW.
[2019-01-19] MEDS: DEXT 5% / NACL 0.45% 1,000 ML IV SCH (05:30)
--- NOTE | 2019-01-19 06:00 | NUR ---
PT ASLEEP. NO S/S OF ANY DISCOMFORT NOTED.
[2019-01-19] MEDS: LEVOTHYROXINE 0.025 MG TAB PO SCH (06:30)
[2019-01-19] MEDS ORDERED: MORPHINE SULFATE 2 MG/ML SYR IVP PRN (07:15)
--- NOTE | 2019-01-19 07:30 | NUR ---
ENDORSED PT IN STABLE CONDITION TO AM NURSE.
--- NOTE | 2019-01-19 07:35 | NUR ---
RECEIVED PT FROM MANUFACTURING SALES REPRESENTATIVE NURSEWILDA, PT IS ASLEEP AND LYING ON THE BED, SAFETY AND FALL PRECAUTION INITIATED, IV LINE ON THE RT FA G. 22 WITH D5 1/2 NS INFUSING AT 50ML/HR, PT IS ON RESTRAINT, S/P EXPLORE LAP, MID-ABDOMINAL INCISIONS AND DAYO INTACT, RT ABDOMINAL AREA WAS REINFORCED WITH DRESSING FOR THE MICHELLE SITE, RESPIRATION IS EVEN AND NO SIGN OF DISTRESS NOTED. WILL MONITOR PT.
[2019-01-19 08:00] VITALS: BP 97/65
[2019-01-19] MEDS: risperiDONE 1 MG TAB PO SCH ×2 (09:00→20:28)
[2019-01-19] MEDS: LORazepam 1 MG TAB PO SCH ×3 (09:00→17:26)
[2019-01-19] MEDS: DOCUSATE 100 MG/10 ML UDC GT SCH (09:00)
[2019-01-19] MEDS: QUEtiapine FUMARATE 100 MG TAB PO SCH ×2 (09:00→20:28)
[2019-01-19] MEDS: SODIUM CHLORIDE 0.65% 45 ML BTL NS SCH (09:00)
[2019-01-19] MEDS: BENZTROPINE 1 MG TAB PO SCH (09:00)
[2019-01-19 09:14] LABS: BASOPHILS % (AUTO) 0.7 % (0.0-2.0); EOSINOPHILS # (AUTO) 0.1 K/uL (0-0.4); EOSINOPHILS % (AUTO) 1.4 % (0.0-4.0); HEMATOCRIT 38.6 % (36-52); HEMOGLOBIN 12.9 g/dL (12.0-18.0); LYMPHOCYTES # (AUTO) 0.7 K/uL (2.0-11.5); LYMPHOCYTES % (AUTO) 10.4 % (20.5-51.1); MEAN CORPUSCULAR HEMOGLOBIN 33 pg (27-31); MEAN CORPUSCULAR HGB CONC 33 g/dL (33-37); MEAN CORPUSCULAR VOLUME 97.8 fL (80-94); MONOCYTES # (AUTO) 0.4 K/uL (0.8-1.0); NEUTROPHILS # (AUTO) 5.2 K/uL (1.8-7.7); NEUTROPHILS % (AUTO) 81.5 % (42.2-75.2); PLATELET COUNT (AUTO) 166 K/uL (140-450); RED BLOOD CELL COUNT(AUTO) 3.95 MIL/uL (4.20-6.10); WHITE BLOOD COUNT (AUTO) 6.4 K/uL (4.8-10.8)
[2019-01-19 09:25] LABS: MAGNESIUM 1.8 mg/dL (1.8-2.4); PHOSPHORUS 3.6 mg/dL (2.5-4.9)
[2019-01-19 09:27] LABS: PROTHROMBIN TIME 10.2 secs (10.8-13.4)
--- NOTE | 2019-01-19 10:00 | NUR ---
PT WAS REPOSITIONED AND RESTRAINT WAS ASSESSED, ORAL MEDICATIONS WERE NOT GIVEN BECAUSE PT IS ON NPO, WAITING FOR GI MD TO SEE PT AND MAKE ORDER.
--- NOTE | 2019-01-19 12:30 | NUR ---
PT WAS REPOSITIONED AND RESTRAINT WAS CHECKED. WILL MONITOR PT.
--- NOTE | 2019-01-19 14:15 | NUR ---
PT IS AWAKE AND FAMILY ON THE BEDSIDE, RESTRAINT WAS RE-ASSESS.
--- NOTE | 2019-01-19 15:30 | NUR ---
01/19/19 RD FOLLOW UP COMPLETED PLEASE REFER TO NUTRITION ASSESSMENT UNDER CARE ACTIVITY FOR ESTIMATED NUTRITIONAL NEEDS. 1. CONTINUE NPO MEDICALLY APPROPRIATE 2. CONSIDER A SWALLOW EVALUATION WHEN PATIENT IS READY TO START PO INTAKE 3. RD TO FOLLOW-UP 2-3 DAYS, HIGH RISK COLETTE HARTLEY, RD
[2019-01-19 16:00] VITALS: BP 108/72
--- NOTE | 2019-01-19 16:10 | NUR ---
PT'S RESTRAINT WAS RELEASED AND SKIN WAS ASSESSED, NO INJURY NOTED.
[2019-01-19] MEDS: SENNA 8.6 MG TAB PO SCH (17:26)
[2019-01-19] MEDS ORDERED: SODIUM PHOSPHATE 118 ML ENEM RC SCH (17:30)
--- NOTE | 2019-01-19 18:02 | NUR ---
PT'S RESTRAINT WAS RELEASE AND SKIN INTEGRITY WAS CHECKED, NO INJURY NOTED.
--- NOTE | 2019-01-19 18:30 | NUR ---
PT WAS GIVEN ENEMA NOW.
--- NOTE | 2019-01-19 19:05 | NUR ---
ENDORSED PT TO SILK SCREEN PROCESSOR NURSELAWRENCE FOR CONTINUITY OF CARE.
--- NOTE | 2019-01-19 19:06 | NUR ---
RECD. IN BED, AWAKE, APHASIC. MENTALLY CHALLENGED. RESPIRATION EVEN AND UNLABORED. IV LINE AT THE RIGHT WRIST G22, COVERED WITH KERLIX DRESSING, PATENT AND INTACT. ON BILATERAL SOFT WRIST RESTRAINTS. INCISION IN THE ABDOMEN WITH DAYO OPEN TO AIR, DRY AND CLEAN. REORIENTED TO HOSPITAL SETTING , TOLD ABOUT PLAN OF CARE, NEEDS REINFORCEMENT. NO APPEARANCE OF PAIN NOTED 0/10.
--- NOTE | 2019-01-19 19:07 | NUR ---
Patient's Plan of Care was discussed and reviewed with ELIZABETH: LAWRENCE. WILL CONTINUE TO MONITOR.
--- NOTE | 2019-01-19 19:15 | NUR ---
TRYING TO GET OUT OF BED, PUTTING HIS LEGS OUT OF THE BED AND PULLING ON HIS BILATERAL RESTRAINTS. AGITATED AND RESTLESS.
--- NOTE | 2019-01-19 19:45 | NUR ---
INFORMED DR. RODRIGUEZ IV PULLED OUT BY PATIENT, AGITATED AND RESTLESS. WILL ORDER HALDOL.
[2019-01-19] MEDS ORDERED: HALOPERIDOL IM 5 MG/ML VIAL IM SCH (20:00)
[2019-01-19] MEDS: POLYETHYLENE GLYCOL 17 GM/PKT PO SCH (20:28)
[2019-01-19] MEDS: METOCLOPRAMIDE 10 MG/2 ML INJ VIAL IVP SCH (21:00)
--- NOTE | 2019-01-19 23:00 | NUR ---
STILL AWAKE, DID NOT SLEEP AT ALL. QUIET IN BED BUT GETS COMBATIVE WHILE PUTTING NEW IV LINE. WILL REQUEST MD TO ORDER ATIVAN IM.
[2019-01-20 00:30] VITALS: BP 103/64
[2019-01-20] MEDS ORDERED: LORazepam 2 MG/ML VIAL IM ONE (00:30)
[2019-01-20] MEDS: SODIUM CHLORIDE 0.65% 45 ML BTL NS SCH ×3 (00:35→20:29)
--- NOTE | 2019-01-20 01:18 | NUR ---
AGITATED, RESTLESS. MEDICATED WITH ATIVAN ORDERED.
--- NOTE | 2019-01-20 02:20 | NUR ---
NO AGITATION BUT STILL AWAKE, IN BED.
--- NOTE | 2019-01-20 03:00 | NUR ---
SLEEPING BUT EASILY WAKES UP AND FIGHTS WITH NURSES, NEW IV LINE INSERTED AT THE LEFT WRIST G22 BY JORY ASTUDILLO.
--- NOTE | 2019-01-20 03:05 | NUR ---
TRIED TO PUT ON 02 CANNULA BUT WAKES UP AND PULLED IT OUT.
[2019-01-20] MEDS: METOCLOPRAMIDE 10 MG/2 ML INJ VIAL IVP SCH ×4 (05:30→20:15)
--- NOTE | 2019-01-20 05:30 | NUR ---
SUSAN REGLAN GIVEN VIA IVP. NO S/S OF DISTRESS. WILL CONTINUE TO MONITOR.
[2019-01-20] MEDS: LEVOTHYROXINE 0.025 MG TAB PO SCH (06:30)
[2019-01-20 06:53] LABS: BASOPHILS % (AUTO) 0.8 % (0.0-2.0); EOSINOPHILS # (AUTO) 0.1 K/uL (0-0.4); EOSINOPHILS % (AUTO) 2.2 % (0.0-4.0); HEMATOCRIT 38.8 % (36-52); HEMOGLOBIN 12.8 g/dL (12.0-18.0); LYMPHOCYTES # (AUTO) 1.2 K/uL (2.0-11.5); LYMPHOCYTES % (AUTO) 18.6 % (20.5-51.1); MEAN CORPUSCULAR HEMOGLOBIN 32 pg (27-31); MEAN CORPUSCULAR HGB CONC 33 g/dL (33-37); MEAN CORPUSCULAR VOLUME 97.9 fL (80-94); MONOCYTES # (AUTO) 0.5 K/uL (0.8-1.0); MONOCYTES % (AUTO) 8.2 % (1.7-9.3); NEUTROPHILS # (AUTO) 4.6 K/uL (1.8-7.7); NEUTROPHILS % (AUTO) 70.2 % (42.2-75.2); PLATELET COUNT (AUTO) 172 K/uL (140-450); RED BLOOD CELL COUNT(AUTO) 3.97 MIL/uL (4.20-6.10); RED CELL DISTRIBUTION WIDTH 13.9 % (11.6-13.7); WHITE BLOOD COUNT (AUTO) 6.5 K/uL (4.8-10.8)
[2019-01-20 07:11] LABS: ANION GAP 11.8 (8-16); CARBON DIOXIDE 29.8 mmol/L (21-32); POTASSIUM 4.6 mmol/L (3.5-5.1)
--- NOTE | 2019-01-20 07:25 | NUR ---
STILL SLEEPING COMFORTABLY IN BED. CONDITION REMAIN STABLE. ENDORSED TO AM NURSE FOR CONTINUITY OF CARE.
--- NOTE | 2019-01-20 07:26 | NUR ---
RECEIVED ENDORSEMENT FROM LUGGAGE MAKER NURSE. PATIENT IS AAOX1, NONVERBAL. RESPIRATIONS ARE EVEN AND UNLABORED ON ROOM AIR. FLACC 0. LEFT WRIST 22G IV INTACT, PATENT, AND INFUSING IVF. MIDABDOMINAL INCISION NOTED. PLAN OF CARE WAS REVIEWED WITH PATIENT, PATIENT UNABLE TO VERBALIZE UNDERSTANDING. SAFETY MEASURES IN PLACE, CALL LIGHT WITHIN REACH. PATIENT IS ON RESTRAINTS.
[2019-01-20 08:00] VITALS: BP 99/60
--- NOTE | 2019-01-20 08:15 | NUR ---
PATIENT PULLED OFF IV, CANNULA INTACT. NO OTHER NEEDS AT THIS TIME, WILL CONTINUE TO MONITOR.
[2019-01-20] MEDS: risperiDONE 1 MG TAB PO SCH ×2 (09:02→20:15)
[2019-01-20] MEDS: QUEtiapine FUMARATE 100 MG TAB PO SCH ×2 (09:02→20:15)
[2019-01-20] MEDS: SENNA 8.6 MG TAB PO SCH ×3 (09:02→16:26)
[2019-01-20] MEDS: LORazepam 1 MG TAB PO SCH ×3 (09:03→16:26)
[2019-01-20] MEDS: POLYETHYLENE GLYCOL 17 GM/PKT PO SCH ×2 (09:03→16:27)
--- NOTE | 2019-01-20 09:03 | NUR ---
ADMINISTERED SCHEDULED MEDICATIONS WITH APPLESAUCE. PATIENT TOLERATED WELL. NO OTHER NEEDS AT THIS TIME, WILL CONTINUE TO MONITOR. FLACC 0.
[2019-01-20] MEDS: DEXT 5% / NACL 0.45% 1,000 ML IV SCH (09:49)
--- NOTE | 2019-01-20 11:10 | NUR ---
ADMINISTERED SCHEDULED MEDICATIONS. PATIENT TOLERATED WELL. NO OTHER NEEDS AT THIS TIME.
--- NOTE | 2019-01-20 11:10 | NUR ---
WOUND CARE EVALUATION TO ABDOMINAL SURGICAL WOUND WITH MULTIPLE DAYO, DRY AND CLEAN, NO DRAINAGE, NO S/S OF WOUND DEHISCENCE, ASHLEE WOUND SKIN ERYTHEMA, PT. SCRATCHES TO WOUND SITE, WRIST RESTRAIN REPOSITION, WOUND CLEANSE WITH NS, PAT DRY AND APPLY DRY DRESSING. PRIMARY RN NOTIFIED. RECOMMENDATIONS: -ABDOMINAL DAYO COVER WITH DRY DRESSING QD AND CHANGE PRN IF SOILING -WRIST RESTRAINT TO CHECK AND RELEASE Q2H FOR 10 MINUTES AND ASSESS SKIN CONDITION TO WRIST AREA -KEEP PT. DRY AND CLEAN AT ALL TIMES.
[2019-01-20] MEDS: LORazepam 2 MG/ML VIAL IVP PRN ×2 (11:20→18:41)
--- NOTE | 2019-01-20 11:30 | NUR ---
PATIENT CONTINUES TO GET OFF BED, DESPITE RESTRAINTS. MD, EMBEDDED SOFTWARE ENGINEER, AND CHARGE NURSE AWARE.
--- NOTE | 2019-01-20 12:10 | NUR ---
PATIENT REMOVED IV, CANNULA INTACT WITH MINIMAL BLEEDING. NO OTHER NEEDS AT THIS TIME, WILL REINSERT NEW ONE.
[2019-01-20] MEDS: GAUZE TP SCH (12:33)
[2019-01-20] MEDS ORDERED: fentaNYL 0.05 MG/ML VIAL ONE (13:50)
[2019-01-20] MEDS ORDERED: MIDAZOLAM 2 MG/2 ML VIAL ONE (13:50)
[2019-01-20] MEDS ORDERED: diphenhydrAMINE 50 MG/ML VIAL ONE (13:51)
--- NOTE | 2019-01-20 13:57 | NUR ---
PATIENT OFF UNIT FOR EGD. WILL MONITOR UPON RETURN.
[2019-01-20] MEDS: MIDAZOLAM 2 MG/2 ML VIAL IVP ONE ×2 (14:32→15:39)
[2019-01-20] MEDS: fentaNYL 0.05 MG/ML VIAL IVP ONE ×2 (14:34→15:39)
[2019-01-20] MEDS: diphenhydrAMINE 50 MG/ML VIAL IVP ONE ×2 (14:40→15:39)
--- NOTE | 2019-01-20 15:15 | NUR ---
PATIENT RETURNED FROM EGD. VS OBTAINED. PATIENT IS STABLE AT THIS TIME. NO OTHER NEEDS AT THIS TIME, WILL CONTINUE TO MONITOR.
[2019-01-20] MEDS ORDERED: MAGNESIUM CITRATE 300 ML BTL PO SCH (15:45)
[2019-01-20 16:00] VITALS: BP 116/82
[2019-01-20] MEDS: busPIRone 5 MG TAB PO SCH (16:26)
--- NOTE | 2019-01-20 16:26 | NUR ---
ADMINISTERED SCHEDULED MEDICATIONS. PATIENT TOLERATED WELL. NO OTHER NEEDS AT THIS TIME.
--- NOTE | 2019-01-20 18:00 | NUR ---
PATIENT RESTING IN BED CALMLY AT THIS TIME. FLACC 0. NO OTHER NEEDS AT THIS TIME, WILL CONTINUE TO MONITOR.
--- NOTE | 2019-01-20 18:44 | NUR ---
PATIENT FOUND ON FLOOR. ONE RESTRAINT WAS RIPPED OFF ARM. NO INJURIES NOTED. Addendum: 01/20/19 at 1845 by Danielle Odom RN MD LOO
--- NOTE | 2019-01-20 19:17 | NUR ---
ENDORSED TO ELECTRIC CAR OPERATOR FOR CONTINUITY OF CARE. PATIENT IS STABLE AT THIS TIME.
--- NOTE | 2019-01-20 19:30 | NUR ---
RECEIVED BEDSIDE REPORT FROM DAY SHIFT NURSE. PATIENT IS AWAKE. RESPIRATION EVEN UNLABORED ON ROOM AIR. NO DISTRESS NOTED. SKIN IS WARM AND DRY.IV PATENT AND INTACT COVER WITH KERLIX DRESSING. MID ABDOMEN INCISION WITH DAYO NOTED COVER WITH ABDOMINAL PAD DRESSING. BILATERAL SOFT WRIST RESTRAIN IN PLACE. PLAN OF CARE WAS UP TO DATE. ALL SAFETY MEASURE IN PLACE. BED IS AT LOW POSITION. CALL LIGHT WITHIN REACH. WILL CONTINUE TO MONITOR.
[2019-01-20] MEDS ORDERED: LORazepam 2 MG/ML VIAL IM/IVP ONE (19:40)
[2019-01-20] MEDS ORDERED: HALOPERIDOL IM 5 MG/ML VIAL IM ONE (19:40)
[2019-01-20] MEDS ORDERED: diphenhydrAMINE 50 MG/ML VIAL IM ONE (19:40)
--- NOTE | 2019-01-20 20:00 | NUR ---
PATIENT CONTINUES TO GET OFF BED, DESPITE RESTRAINTS. HIGHWAY MAINTENANCE WORKER, AND CHARGE NURSE AWARE. WILL CONTINUE TO MONITOR.
--- NOTE | 2019-01-20 20:10 | NUR ---
PATIENT IS UNCOOPERATIVE, KEEP GETTING OFF THE BED, ADMINISTERED HALDOL IM AND BENADRYL IM PER DR. RODRIGUEZ ORDER. WILL CONTINUE TO MONITOR.
--- NOTE | 2019-01-20 20:30 | NUR ---
ALL SCHEDULED MEDS WERE GIVEN PER ORDER WILL CONTINUE TO MONITOR.
--- NOTE | 2019-01-20 21:00 | NUR ---
PATIENT IN THE BED CALM, WILL CONTINUE TO MONITOR.
--- NOTE | 2019-01-20 23:00 | NUR ---
PATIENT SLEEPING RESPIRATION EVEN UNLABORED ON ROOM AIR. NO DISTRESS NOTED. WILL CONTINUE TO MONITOR.
[2019-01-21] VITALS: BP 112/78
--- NOTE | 2019-01-21 | NUR ---
VITALS WERE TAKEN. PATIENT IN STABLE CONDITION. SOFT WRIST RESTRAIN RELEASED AND ASSESS FOR CIRCULATION. WILL CONTINUE TO MONITOR.
--- NOTE | 2019-01-21 02:00 | NUR ---
PATIENT SLEEPING RESPIRATION EVEN UNLABORED ON ROOM AIR. RELEASED SOFT RESTRAINT AND ASSESS FOR CIRCULATION. WILL CONTINUE TO MONITOR.
--- NOTE | 2019-01-21 04:00 | NUR ---
VITALS WERE TAKEN. PATIENT IN STABLE CONDITION. RELEASED RESTRAIN AND ASSESS CIRCULATION. PATIENT IS SLEEPING NO DISTRESS NOTED. WILL CONTINUE TO MONITOR
[2019-01-21] MEDS: METOCLOPRAMIDE 10 MG/2 ML INJ VIAL IVP SCH ×3 (05:17→21:40)
[2019-01-21] MEDS: LEVOTHYROXINE 0.025 MG TAB PO SCH (06:36)
[2019-01-21] MEDS: LANSOPRAZOLE 30 MG CAPDR PO SCH (06:37)
--- NOTE | 2019-01-21 07:15 | NUR ---
RECEIVED REPORT FROM [employer] OFFICER NURSE. PATIENT IS CURRENTLY SLEEPING IN BED. A&O X1. ON ROOM AIR. PATIENT HAS BILATERAL SOFT RESTRAINTS, RENEWAL @ 6083. WILL CONTINUE TO MONITOR.
--- NOTE | 2019-01-21 07:24 | NUR ---
ENDORSED PATIENT TO DAY SHIFT NURSE. PATIENT IN STABLE CONDITION.
--- NOTE | 2019-01-21 07:45 | NUR ---
SPOKE TO RESIDENTS FOR RESTRAINT RENEWAL FOR 807.
[2019-01-21 08:00] VITALS: BP 97/67
[2019-01-21] MEDS: risperiDONE 1 MG TAB PO SCH ×2 (08:38→21:40)
[2019-01-21] MEDS: LORazepam 1 MG TAB PO SCH ×3 (08:38→17:39)
[2019-01-21] MEDS: busPIRone 5 MG TAB PO SCH ×3 (08:39→17:39)
[2019-01-21] MEDS: POLYETHYLENE GLYCOL 17 GM/PKT PO SCH ×3 (08:40→17:00)
--- NOTE | 2019-01-21 08:40 | NUR ---
ADMINISTERED MORNING MEDICATION PO IN APPLESAUCE. PATIENT ABLE TO SWALLOW WHOLE. ADMINISTERED HEPARIN INJECTION AND OCEAN NASAL SPRAY. PATIENT TOLERATED WELL.
[2019-01-21] MEDS: SENNA 8.6 MG TAB PO SCH ×3 (08:41→17:00)
[2019-01-21] MEDS: SODIUM CHLORIDE 0.65% 45 ML BTL NS SCH ×2 (08:47→21:40)
--- NOTE | 2019-01-21 11:00 | NUR ---
PATIENT HAD X1 XL BM. WITH THE ASSISTANCE OF OLY PINTO AND 3 STUDENTS, CLEANED UP PATIENT AND CHANGED SHEETS, GOWN, RESTRAINTS, CHUX D/T SOILED AFTER BM.
[2019-01-21] MEDS: LORazepam 2 MG/ML VIAL IVP PRN ×3 (11:36→23:30)
[2019-01-21] MEDS: GAUZE TP SCH (12:25)
--- NOTE | 2019-01-21 12:52 | NUR ---
ADMINISTERED AFTERNOON MEDICATION IN APPLESAUCE. PATIENT TOLERATED WELL. NO COMPLAINTS AT THIS TIME. PT IS SITTING UP IN BED
--- NOTE | 2019-01-21 13:46 | NUR ---
CAREGIVER AT BEDSIDE. INFORMED HIM OF PLAN OF CARE.
--- NOTE | 2019-01-21 14:34 | NUR ---
PATIENTS MOM AND DAD ARE AT BEDSIDE. CAREGIVER HAD INFORMED THEM OF POC. NO COMPLAINTS AT THIS TIME
--- NOTE | 2019-01-21 15:45 | NUR ---
CHANGED PATIENTS YRN, GRACE, HYACINTHN D/T XL BM WITH THE ASSISTANCE OF OLY PINTO AND JORY PICHARDO. PATIENT IS SITTING UP IN BED. NO COMPLAINTS AT THIS TIME.
[2019-01-21 16:00] VITALS: BP 98/65
--- NOTE | 2019-01-21 17:39 | NUR ---
ADMINISTERED EVENING MEDICATION. DID NOT ADMINISTER MIRALAX OR SENNA D/T PT HAVING 2 XL BM TODAY.
--- NOTE | 2019-01-21 19:30 | NUR ---
RECEIVED BEDSIDE REPORT FROM DAY SHIFT NURSE. PATIENT IS AWAKE ON SOFT RESTRAINT. RESPIRATION EVEN UNLABORED ON ROOM AIR. NO DISTRESS NOTED. SKIN IS WARM AND DRY. IV PATENT AND INTACT. PLAN OF CARE WAS UP DATE. ALL SAFETY MEASURES IN PLACE. BED IS TA LOW POSITION. WILL CONTINUE TO MONITOR.
--- NOTE | 2019-01-21 20:00 | NUR ---
INITIAL ASSESSMENT DONE. VITALS WERE TAKEN. PATIENT IS CALM. NO SIGN OF AGITATION. WILL CONTINUE TO MONITOR.
--- NOTE | 2019-01-21 21:00 | NUR ---
ALL SCHEDULED MEDS WERE GIVEN PER ORDER. NO ASE NOTED. PATIENT TOOK HIS MED WITHOUT A PROBLEM. WILL CONTINUE TO MONITOR.
[2019-01-21] MEDS: QUEtiapine FUMARATE 100 MG TAB PO SCH (21:39)
--- NOTE | 2019-01-21 22:10 | NUR ---
FEED PATIENT APPLESAUCE AND TOLERATED IT WELL. WILL CONTINUE TO MONITOR.
--- NOTE | 2019-01-21 23:48 | NUR ---
PATIENT IS CRYING AND MOVING AROUND THE BED. PRN ATIVAN IS GIVEN PER ORDER. WILL CONTINUE TO MONITOR.
--- NOTE | 2019-01-21 23:56 | NUR ---
VITALS WERE TAKEN. PATIENT IN STABLE CONDITION. WILL CONTINUE TO MONITOR.
[2019-01-22] VITALS: BP 101/57
--- NOTE | 2019-01-22 01:00 | NUR ---
PATIENT GETS AGITATED WHEN TOUCHING HIS ABDOMEN. UNABLE TO CHANGE THE DRESSING. MINIMAL DRAINAGE NOTED. DRESSING STILL INTACT AND STAPLE STILL IN PLACE. WILL TRY AGAIN LATER.
--- NOTE | 2019-01-22 02:00 | NUR ---
CHECKED PATIENT. PATIENT SLEEPING RESPIRATION EVEN UNLABORED ON ROOM AIR. RELEASED RESTRAIN AND ASSESS CIRCULATION. NO DISTRESS NOTED. WILL CONTINUE TO MONITOR.
[2019-01-22 04:00] VITALS: BP 91/56
--- NOTE | 2019-01-22 04:05 | NUR ---
VITALS WERE TAKEN. PATIENT IN STABLE CONDITION. RELEASED RESTRAIN AND ASSESS. NO DISTRESS NOTED. WILL CONTINUE TO MONITOR.
[2019-01-22] MEDS: METOCLOPRAMIDE 10 MG/2 ML INJ VIAL IVP SCH ×3 (05:16→20:14)
[2019-01-22] MEDS: LEVOTHYROXINE 0.025 MG TAB PO SCH (06:21)
[2019-01-22] MEDS: LANSOPRAZOLE 30 MG CAPDR PO SCH (06:22)
--- NOTE | 2019-01-22 07:23 | NUR ---
ENDORSED PATIENT TO DAY SHIFT NURSE FOR CONTINUITY OF CARE. PATIENT IN STABLE CONDITION
--- NOTE | 2019-01-22 07:25 | NUR ---
RECEIVED BEDSIDE REPORT FROM NIGHT NURSE. PATIENT IS AWAKE ON SOFT RESTRAINT. RESPIRATION EVEN UNLABORED ON ROOM AIR. NO DISTRESS NOTED. SKIN IS WARM AND DRY. IV PATENT AND INTACT. PLAN OF CARE UP DATE. SAFETY MEASURES IN PLACE. BED IN LOW POSITION. CALL LIGHT WITHIN REACH. WILL CONTINUE TO MONITOR
[2019-01-22] MEDS: SENNA 8.6 MG TAB PO SCH ×3 (09:10→16:23)
[2019-01-22] MEDS: busPIRone 5 MG TAB PO SCH ×3 (09:10→16:23)
[2019-01-22] MEDS: POLYETHYLENE GLYCOL 17 GM/PKT PO SCH ×3 (09:10→16:23)
[2019-01-22] MEDS: risperiDONE 1 MG TAB PO SCH ×2 (09:11→20:13)
[2019-01-22] MEDS: LORazepam 1 MG TAB PO SCH ×3 (09:11→16:23)
[2019-01-22] MEDS: SODIUM CHLORIDE 0.65% 45 ML BTL NS SCH ×2 (09:18→20:25)
--- NOTE | 2019-01-22 09:33 | NUR ---
MEDICATIONS ADMINISTERED PER ORDER. PATIENT TOLERATED WELL AND IN NO DISTRESS. WILL CONTINUE TO MONITOR.
--- NOTE | 2019-01-22 11:00 | NUR ---
01/22/19 RD FOLLOW UP COMPLETED PLEASE REFER TO NUTRITION PROGRESS NOTE UNDER CARE ACTIVITY FOR ESTIMATED NUTRITION NEEDS. RD RECOMMENDATIONS: 1. CONTINUE ON REGULAR DIET TOLERATED. 2. RD WILL F/U 3-5 DAYS; MODERATE RISK. CAITY GAYLE MS, RDN
--- NOTE | 2019-01-22 11:35 | NUR ---
MEDICATIONS ADMINISTERED PER ORDER. PT TOLERATED WELL. NO SIGNS OF DISTRESS. SAFETY MEASURES IN PLACE. WILL CONTINUE TO MONITOR.
[2019-01-22] MEDS: GAUZE TP SCH (13:11)
--- NOTE | 2019-01-22 15:00 | NUR ---
PT CLEANED, CHANGED AND REPOSITIONED. UPPER ABDOMINAL WOUND DRESSING DRY AND INTACT. SAFETY MEASURES IN PLACE. WILL CONTINUE TO MONITOR.
[2019-01-22 16:00] VITALS: BP 89/57
--- NOTE | 2019-01-22 16:29 | NUR ---
MEDICATIONS ADMINISTERED PER ORDER. PT IN NO DISTRESS. SAFETY MEASURES IN PLACE. WILL CONTINUE TO MONITOR.
--- NOTE | 2019-01-22 19:15 | NUR ---
PT GIVEN TO NIGHT NURSE WITH BEDSIDE REPORT FOR CONTINUITY OF CARE
--- NOTE | 2019-01-22 19:20 | NUR ---
RECEIVED PT. MENTALLY CHALLENGED RT HX. DOWNS SYNDROME. TOTAL CARE. WITH SOFT RESTRAINTS WRIST IN PLACE BILATERALLY RT WITH TENDENCY TO JUMP OUT OF BED ,TAKE OUT HIS IVF TUBING , KICKS AND TRYING TO PULL OUT HIS DAYO IN ABDOMEN FROM S/P EXPLORE LAP 01/16/19. BED ALARM ON. NEEDS WILL BE ANTICIPATED THIS SHIFT . NO BLEEDING NOTED TO ABDOMINAL SURGICAL INCISION.
[2019-01-22] MEDS: QUEtiapine FUMARATE 100 MG TAB PO SCH (20:14)
--- NOTE | 2019-01-22 21:18 | NUR ---
ALL P.O. MEDICATIONS SWALLOWED WELL. WATER OFFERED AND DRANK IT WELL. NO ASPIRATION S/S NOTED. NEEDS WILL BE ANTICIPATED AND WILL BE MET. TOTAL CARE. PT. AT THIS TIME IS BEING CLEANED BY SCARF GLUER RT WITH WET WITH URINE. INCONTINENT.
--- NOTE | 2019-01-22 21:57 | NUR ---
PT. SITTING UP POSITION AND WANTING TO GET OUT OF BED. PT. ENCOURAGED TO SLEEP. KEPT CLEAN AND DRY. PT. VERY RESTLESS AND WANTS TO GET OUT OF BED. WILL MONITOR CLOSELY.
[2019-01-22] MEDS: LORazepam 2 MG/ML VIAL IVP PRN (22:19)
--- NOTE | 2019-01-22 23:23 | NUR ---
CLEANED PT. WITH BM AGAIN. KEPT DRY AND CLEAN. PT. STILL AWAKE AND FIGHTING TO GET OUT OF BED. KEEPS DANGLING HIS LEGS OUT AND TRYING TO SIT ON THE FLOOR. ATIVAN IVP 1 MG. ADMINISTERED EARLIER. BED ALARM ON. KEPT TELLING PT. TO RELAX AND GO TO SLEEP. PICTURE IN ABDOMEN FROM S/P EXPLORE LAP 01/16/19 TAKEN. INTACT WITH DAYO IN PLACE AND NO BLEEDING. NEEDS ANTICIPATED AND WILL BE MET. NEW IVF LINE INSERTED TO LEFT FOREARM #22 RT OLD IVF SITE TO RIGHT FOREARM INFILTRATED.
[2019-01-22 23:53] VITALS: BP 94/62
--- NOTE | 2019-01-23 00:30 | NUR ---
SLEEPING AT THIS TIME AND NO RESTLESSNESS. PT. HAVE TENDENCY TO WAKE UP EASILY AND TRIES TO GET OUT OF BED.
--- NOTE | 2019-01-23 02:00 | NUR ---
PT. STILL AWAKE AND REFUSING TO LAY DOWN IN BED. PREFERS TO BE SITTING UP AND TRYING TO GET OUT OF BED.
--- NOTE | 2019-01-23 05:35 | NUR ---
SLEEPING AT THIS TIME.
[2019-01-23] MEDS: METOCLOPRAMIDE 10 MG/2 ML INJ VIAL IVP SCH (05:40)
[2019-01-23] MEDS: LANSOPRAZOLE 30 MG CAPDR PO SCH (05:41)
[2019-01-23] MEDS: LEVOTHYROXINE 0.025 MG TAB PO SCH (05:43)
--- NOTE | 2019-01-23 07:20 | NUR ---
RECEIVED BEDSIDE REPORT FROM HOTEL CLERK NURSE FOR CONTINUITY OF CARE. PATIENT IS AOX1 TO, NON-VERBAL. PATIENT AWAKE AND RESTING ON BED QUIETLY AT THIS TIME. RESPIRATION EVEN AND UNLABORED ON RA. NO SIGNS OF DISTRESS NOTED. IV ON RFA, CLEAN AND DRY, SL. SOFT WRIST RESTRAINTS APPLIED BILATERALLY, NO SIGNS OF INJURY, CAPILLARY REFILL < 3 SECONDS. ABDOMINAL INCISIONS NOTED, DRESSING CLEAN AND DRY. PATIENT IS BEDREST AND INCONTINENT. SAFETY MEASURES IN PLACE. FALL RISK PROTOCOL INITIALED AND BED ALARM ACTIVATED. BED IN LOW POSITION AND CALL LIGHT WITHIN REACH.
[2019-01-23 08:00] VITALS: BP 108/60
--- NOTE | 2019-01-23 09:22 | NUR ---
MET WITH BELKIS HOLLIS WITH DR. JENNINGS AT THE BEDSIDE, HE STATED THEY ARE NOT ABLE TO ACCEPT PATIENT BACK POST [facility]. ALL CONCERNS AND QUESTIONS ANSWERED. HE REQUESTED COPY OF MEDICAL RECORDS.
[2019-01-23] MEDS: POLYETHYLENE GLYCOL 17 GM/PKT PO SCH (09:53)
[2019-01-23] MEDS: SENNA 8.6 MG TAB PO SCH (09:54)
[2019-01-23] MEDS: risperiDONE 1 MG TAB PO SCH (09:54)
[2019-01-23] MEDS: busPIRone 5 MG TAB PO SCH (09:54)
[2019-01-23] MEDS: LORazepam 1 MG TAB PO SCH (09:55)
[2019-01-23] MEDS: SODIUM CHLORIDE 0.65% 45 ML BTL NS SCH (09:58)
--- NOTE | 2019-01-23 09:58 | NUR ---
RECEIVED A CALL FROM NEGRA REYES OF [facility], UPDATED HER OF THE PATIENT'S DC PLAN. SHE PROVIDED ME WITH PHONE NUMBER [phone] FOR UPDATE.
--- NOTE | 2019-01-23 09:59 | NUR ---
ADMINISTERED MEDS PER MD ORDER, PATIENT TOLERATED WELL. MEDS EDUCATION PROVIDED TO PATIENT AND REINFORCEMENT NEEDED DUE TO PATIENT'S MENTAL STATUS. PATIENT AWAKE AND SITTING UP ON BED. RELEASED RESTRAINTS AND PERFORMED RANGE OF MOTIONS. ASSESSED SOFT WRIST RESTRAINTS, NO INJURY AND CAPILLARY REFILL < 3 SECS. NO SIGNS OF DISTRESS NOTED. SAFETY MEASURES IN PLACE. PATIENT'S ROOM NEAR NURSING STATION. FALL RISK PROTOCOL INITIALED AND BED ALARM ACTIVATED. BED IN LOW POSITION AND CALL LIGHT WITHIN REACH.
--- NOTE | 2019-01-23 10:01 | NUR ---
REMOVED SOFT WRIST RESTRAINTS. ASSESSED SKIN AND CIRCULATION, NO INJURY AND CAPILLARY REFILL < 3 SECONDS. PATIENT AWAKE AND RESTING ON BED. RESPIRATION EVEN AND UNLABORED ON RA. FLACC 0. NO SIGNS OF DISTRESS NOTED. SAFETY MEASURES IN PLACE. BED ALARM ACTIVATED. BED IN LOW POSITION AND CALL LIGHT WITHIN REACH.
--- NOTE | 2019-01-23 10:20 | NUR ---
REFERRAL FAXED TO [facility]. CM TO FOLLOW UP.
[2019-01-23 10:23] LABS: BASOPHILS # (AUTO) 0.1 K/uL (0.00-0.22); BASOPHILS % (AUTO) 1.1 % (0.0-2.0); EOSINOPHILS # (AUTO) 0.5 K/uL (0-0.4); EOSINOPHILS % (AUTO) 6.7 % (0.0-4.0); HEMATOCRIT 40.1 % (36-52); HEMOGLOBIN 13.1 g/dL (12.0-18.0); LYMPHOCYTES # (AUTO) 1.4 K/uL (2.0-11.5); LYMPHOCYTES % (AUTO) 20.4 % (20.5-51.1); MEAN CORPUSCULAR HEMOGLOBIN 32 pg (27-31); MEAN CORPUSCULAR HGB CONC 33 g/dL (33-37); MEAN CORPUSCULAR VOLUME 98.7 fL (80-94); MONOCYTES # (AUTO) 0.6 K/uL (0.8-1.0); NEUTROPHILS # (AUTO) 4.4 K/uL (1.8-7.7); NEUTROPHILS % (AUTO) 62.8 % (42.2-75.2); PLATELET COUNT (AUTO) 206 K/uL (140-450); RED BLOOD CELL COUNT(AUTO) 4.06 MIL/uL (4.20-6.10); RED CELL DISTRIBUTION WIDTH 13.9 % (11.6-13.7)
--- NOTE | 2019-01-23 10:44 | NUR ---
PER [facility], THEY ARE ABLE TO ACCEPT THE PATIENT. PATIENT WILL GO TO ROOM 12C UNDER DR. RODRIGUEZ. SHE ALSO STATED THAT WE CAN USE [facility] FOR TRANSPORT. [facility] CONTACTED AT [phone]. ABLE TO SPEAK TO [place]. HE STATED [facility] LINER WILL BE BETWEEN [phone]. PRIMARY RN ELKE, CHARGE NURSE AND DR. ROMERO MADE AWARE. JONATHAN LAWSON [phone] OF [facility]ARC[facility] MADE AWARE. CONTACTED LAVELLE'S MOTHER CLEOPATRA GUZMÁN AT [phone] REGARDING DC, NO ANSWER. LEFT MESSAGE. CONTACTED [facility] AT [phone], NO ANSWER. LEFT MESSAGE.
[2019-01-23 11:17] LABS: CARBON DIOXIDE 27.8 mmol/L (21-32); CREATININE 0.9 mg/dL (0.7-1.3); POTASSIUM 3.8 mmol/L (3.5-5.1)
[2019-01-23 11:22] LABS: PHOSPHORUS 3.3 mg/dL (2.5-4.9)
--- NOTE | 2019-01-23 11:27 | NUR ---
CALLED [facility] AND GAVE FULL REPORT TO JORY EASTON. ANSWERED ALL RUSTAM'S QUESTIONS AND INFORMED THAT PATIENT WILL BE PICK FROM THE [facility] [phone] BY [facility] TO ROOM 12C UNDER THE CARE OF DR RODRIGUEZ. RUSTAM WAS AWARE OF THE TRANSFER. PROVIDED A CALL BACK NUMBER FOR FURTHER QUESTION.
--- NOTE | 2019-01-23 11:35 | NUR ---
NOTIFIED PATIENT'S MOTHER CLEOPATRA GUZMÁN THAT PATIENT WILL BE TRANSFER TO [facility] 1230 -1330 TODAY AND GOING TO ROOM 12C AND UNDER THE CARE OF DR RODRIGUEZ. CLEOPATRA WAS AWARE THAT PATIENT WILL BE TRANSFER.
--- NOTE | 2019-01-23 11:47 | NUR ---
PATIENT HAS 1 LARGE BM. BUTTONHOLE MARKER CLEANED AND CHANGED PATIENT INTO PINK. PATIENT TOLERATED WELL. PATIENT IS READY FOR TRANSFER. PATIENT AWAKE AND RESTING ON BED AT THIS TIME. NO SIGNS OF DISTRESS NOTED. SAFETY MEASURE IN PLACE. FALL RISK PROTOCOL IN PLACE AND BED ALARM ACTIVATED. BED IN LOW POSITION AND CALL LIGHT WITHIN REACH.
[2019-01-23] MEDS ORDERED: SENN-74 PO (12:16)
[2019-01-23] MEDS ORDERED: BUS5 PO (12:16)
[2019-01-23] MEDS ORDERED: QUET100T44 PO (12:16)
[2019-01-23] MEDS ORDERED: LANS30EC68 PO (12:16)
[2019-01-23] MEDS ORDERED: METO5SOL24 PO (12:16)
[2019-01-23] MEDS ORDERED: RIS1 PO (12:16)
--- NOTE | 2019-01-23 12:30 | NUR ---
CLEANSED WOUND AND CHANGED DRESSING, PATIENT TOLERATED WELL. PATIENT AWAKE AND RESTING ON BED. SAFETY MEASURES IN PLACE. FALL RISK PROTOCOL IN PLACE AND BED ALARM ACTIVATED. BED IN LOW POSITION AND CALL LIGHT WITHIN REACH.
--- NOTE | 2019-01-23 12:40 | NUR ---
RECEIVED A CALL FROM PATIENT'S MOTHER CLEOPATRA GUZMÁN, MADE HER AWARE THAT PATIENT IS DISCHARGING TODAY TO [facility] ROOM [facility]. SHE ALSO REQUESTED TO BE TRANSFERRED TO MEDICAL RECORDS.
--- NOTE | 2019-01-23 12:57 | NUR ---
DISCHARGE INSTRUCTION PROVIDED TO PATIENT AT BEDSIDE, REINFORCEMENT NEEDED DUE TO PATIENT'S MENTAL STATUS. REMOVED PATIENT'S IV AND CANNULA INTACT AND COMPLETED. REMOVED ALL ID ARM BANDS. PATIENT CHANGED INTO PINK. PROVIDED PRINT OUT DISCHARGE PAPER. WOUND ASSESSMENT DONE AND WOUND PICTURE TAKE BY DYNAMICS AX CONSULTANT NURSE. PATIENT IS GOING TO TRANSFER ACCOMPANY BY [facility] P[facility]EL [facility]. PATIENT IS IN STABLE CONDITION.
[2019-01-23] MEDS ORDERED: LORazepam 1 MG TAB PO SCH (13:00)
== END 2019-01-23 12:57 | DRG 853 ==
LOC: MED 11:50 → MTU 17:41 → MIC 22:42 → MTU 01-18 06:20
PROVIDERS: ADMIT General Practice; ATTEND General Practice
PROC: 0D9W00Z Drainage of Peritoneum with Drainage Device, Open Approach (ICD-10-PCS; 2019-01-16)
PROC: 0DB68ZX Excision of Stomach, Via Natural or Artificial Opening Endoscopic, Diagnostic (ICD-10-PCS; principal; 2019-01-20 15:50)
DX: A41.9 Sepsis, unspecified organism (principal); K65.0 Generalized (acute) peritonitis; N17.0 Acute kidney failure with tubular necrosis; E43 Unspecified severe protein-calorie malnutrition; E87.1 Hypo-osmolality and hyponatremia; F72 Severe intellectual disabilities; J98.11 Atelectasis; R18.8 Other ascites; K92.9 Disease of digestive system, unspecified; K29.70 Gastritis, unspecified, without bleeding; K66.8 Other specified disorders of peritoneum; E83.42 Hypomagnesemia; E03.9 Hypothyroidism, unspecified; E83.39 Other disorders of phosphorus metabolism; K59.00 Constipation, unspecified; N20.0 Calculus of kidney; Z68.23 Body mass index [BMI] 23.0-23.9, adult; Q90.9 Down syndrome, unspecified; Z79.899 Other long term (current) drug therapy; R65.20 Severe sepsis without septic shock
CPT/HCPCS: 36415; 71045; 74018; 74249; 80048; 80053; 81003; 83036; 83605; 83690; 83735; 83880; 84100; 84439; 84443; 84484; 85025; 85610; 85730; 86677; 86886; 86900; 86901; 87040; 87070; 87075; 87081; 87086; 87205; 88305; 88312; 88313; 93005; 96361; 96372; 96374; 96375; 96376; 99285; C1758; J0330; J1200; J1630; J1644; J1885; J2060; J2175; J2250; J2270; J2405; J2543; J2704; J2710; J2765; J3010; J3475; J3480; J3490; J7060; J7120; Q0092; Q9968

== ENCOUNTER 2019-01-24 16:56 | Inpatient (IN) | payer OTHER, MEDICAID ==
[~2019-01-24] VITALS: Ht 165.1 cm; Wt 67.6 kg
[~2019-01-24 16:56] MED LIST changes: +BUS5 PO; +LANS30EC68 PO; +METO5SOL24 PO; +QUET100T44 PO; -QUET200T43 PO; +RIS1 PO; -RISP0.5T3 PO; +SENN-74 PO; -[UNRECOGNIZED DRUG - CODE] PO
--- NOTE | 2019-01-24 16:56 | NUR ---
Patient BIBA BLS, transferred to bed 11. RN evaluating patient at bedside.
[2019-01-24 17:01] VITALS: BP 134/74
--- NOTE | 2019-01-24 17:05 | NUR ---
KIM FROM [facility] C/O ANXIETY AND INCREASED AGGRESSION TOWARDS STAFF AND OTHER PATIENTS X TODAY. FACILITY GAVE ATIVAN WITH NO RELIEF. PT CONTINUES TO GET UP FROM BED. PT PLACED IN WHEELCHAIR WITH SEATBELT. WILL CONTINUE TO MONITOR. PT ALERT AND AWAKE. VSS. PMH- DOWN SYNDROME, MALNUTRITION, PERFORATION OF INTESTINE, CONSTIPATION
[2019-01-24] MEDS ORDERED: LORazepam 2 MG/ML VIAL IM ONE (17:15)
[2019-01-24] MEDS ORDERED: LORazepam 2 MG/ML VIAL ONE (17:16)
--- NOTE | 2019-01-24 17:21 | NUR ---
pt continues to pull of 02 monitor
--- NOTE | 2019-01-24 17:22 | NUR ---
PT YELLING AND SCREAMING
--- NOTE | 2019-01-24 17:40 | NUR ---
SURENDRA SHEARER AT BEDSIDE
--- NOTE | 2019-01-24 18:01 | NUR ---
LABS DRAWN BEDSIDE
--- NOTE | 2019-01-24 18:03 | NUR ---
STRAIGHT CATH INSERTED. NO URINE COLLECTED. PT PREVIOSLY URINATED HIMSELF.
--- NOTE | 2019-01-24 18:12 | NUR ---
PT NO LONGER SCREAMING. PT SITTING IN BED/ MONITORING CLOSELY
[2019-01-24 18:35] LABS: BASOPHILS # (AUTO) 0.1 K/uL (0.00-0.22); BASOPHILS % (AUTO) 1.5 % (0.0-2.0); EOSINOPHILS # (AUTO) 0.3 K/uL (0-0.4); EOSINOPHILS % (AUTO) 3.9 % (0.0-4.0); HEMATOCRIT 41.1 % (36-52); HEMOGLOBIN 13.4 g/dL (12.0-18.0); LYMPHOCYTES # (AUTO) 1.9 K/uL (2.0-11.5); LYMPHOCYTES % (AUTO) 23.5 % (20.5-51.1); MEAN CORPUSCULAR HEMOGLOBIN 32 pg (27-31); MEAN CORPUSCULAR HGB CONC 33 g/dL (33-37); MEAN CORPUSCULAR VOLUME 98.4 fL (80-94); MONOCYTES # (AUTO) 0.8 K/uL (0.8-1.0); MONOCYTES % (AUTO) 9.8 % (1.7-9.3); NEUTROPHILS # (AUTO) 5.1 K/uL (1.8-7.7); NEUTROPHILS % (AUTO) 61.3 % (42.2-75.2); PLATELET COUNT (AUTO) 283 K/uL (140-450); RED BLOOD CELL COUNT(AUTO) 4.18 MIL/uL (4.20-6.10); RED CELL DISTRIBUTION WIDTH 14.1 % (11.6-13.7); WHITE BLOOD COUNT (AUTO) 8.3 K/uL (4.8-10.8)
--- NOTE | 2019-01-24 18:59 | NUR ---
APPROX 5 CC URINE COLLECTED AND SENT TO LAB, STRAIGHT CATH REMOVED
--- NOTE | 2019-01-24 18:59 | NUR ---
Nisha rojas in ED - 01/24/19 at 1859 by [email or web address] APPROX 5 CC URINE COLLECTED AND SENT TO [facility]
[2019-01-24 19:05] LABS: APPEARANCE,URINE CLEAR (CLEAR); BILIRUBIN,URINE NEGATIVE (NEGATIVE); BLOOD, URINE 3+ (NEGATIVE); COLOR,URINE YELLOW (YELLOW); LEUKOCYTE ESTERASE ,URINE NEGATIVE (NEGATIVE); NITRITE, URINE NEGATIVE (NEGATIVE); PH,URINE 6.5 (5.0-9.0); UGLUCOSE NEGATIVE (NEGATIVE)
[2019-01-24 19:11] LABS: ANION GAP 15.4 (8-16); CREATININE 0.9 mg/dL (0.7-1.3); POTASSIUM 5.4 mmol/L (3.5-5.1)
--- NOTE | 2019-01-24 19:12 | NUR ---
REPORT GIVEN TO ONOFRE CORLEY
[2019-01-24 19:18] LABS: BARBITURATE, URINE NEG. ng/ml (NEG <=200); BENZODIAZEPINE, URINE NEG. ng/mL (NEG <=200); CANNABINOID, URINE NEG. ng/mL (NEG <=50); COCAINE, URINE NEG. ng/mL (NEG <=300); OPIATE, URINE NEG. ng/mL (NEG <=2000); PHENCYCLIDINE SCREEN,URINE NEG. ng/mL (NEG <=25)
[2019-01-24 19:20] LABS: RBC,URINE 20-50 /HPF (0-5); WBC,URINE 0-5 /HPF (0-5)
[2019-01-24 19:25] LABS: ALBUMIN 2.4 g/dL (3.4-5.0); TOTAL BILIRUBIN 0.4 mg/dL (0.0-1.0)
[2019-01-24] MEDS ORDERED: LORazepam 2 MG/ML VIAL IVP ONE (21:10)
--- NOTE | 2019-01-24 21:45 | NUR ---
PT AWAKE ON BED. PRESENTS CALM. NO SIGNS OF AGITATION. PT VSS. ERMD AWARE. WILL CONTINUE TO MONITOR.
[2019-01-24] MEDS ORDERED: PROPOFOL 200 MG/20 ML VIAL IV ONE (22:30)
[2019-01-24] MEDS ORDERED: HALOPERIDOL IM 5 MG/ML VIAL IM ONE (23:15)
[2019-01-25] MEDS ORDERED: LORazepam 2 MG/ML VIAL IVP ONE
[2019-01-25] MEDS ORDERED: ATI2I IM (00:20)
[2019-01-25] MEDS ORDERED: ONDANSETRON 4 MG/2 ML VIAL IVP PRN (01:05)
[2019-01-25] MEDS ORDERED: HYDROcodone/APAP 7.5/325 MG 1 TAB PO PRN (01:05)
[2019-01-25] MEDS ORDERED: ACETAMINOPHEN 325 MG TAB PO PRN (01:05)
[2019-01-25 01:37] LABS: PHOSPHORUS 3.7 mg/dL (2.5-4.9)
--- NOTE | 2019-01-25 01:40 | NUR ---
ADMINISTERED 6ML PROPOFOL VIA IVP. DR SOUZA, KG RT, VLADIMIR RN AT BEDSIDE. PT VSS. NO SIGNS OF DISTRESS.
--- NOTE | 2019-01-25 01:47 | NUR ---
PT WENT TO CT BY KANDICE
--- NOTE | 2019-01-25 01:50 | NUR ---
PT AWAKE AND ALERT. CT COMPLETED. NO SIGNS OF DISTRESS. PT VSS.
[2019-01-25] MEDS ORDERED: PROPOFOL 200 MG/20 ML VIAL IV ONE (02:05)
[2019-01-25] MEDS ORDERED: traZODone 50 MG TAB PO PRN (02:30)
[2019-01-25] MEDS ORDERED: BISACODYL 10 MG SUPP RC PRN (02:30)
[2019-01-25] MEDS ORDERED: PROMETHAZINE 25 MG SUPP RC PRN (02:30)
[2019-01-25] MEDS ORDERED: MINERAL OIL 135 ML ENEM RC PRN (02:30)
[2019-01-25] MEDS ORDERED: RIS1 PO (02:31)
[2019-01-25] MEDS ORDERED: QUET100T44 PO (02:31)
[2019-01-25] MEDS ORDERED: TRAZ-343 PO (02:31)
[2019-01-25] MEDS ORDERED: METO5TAB4 PO (04:40)
[2019-01-25] MEDS: LEVOTHYROXINE 0.025 MG TAB PO SCH (06:30)
[2019-01-25 07:03] LABS: PROTHROMBIN TIME 10.2 secs (10.8-13.4)
--- NOTE | 2019-01-25 07:20 | NUR ---
RECEIVED BEDSIDE REPORT FROM ER NURSE. PATIENT IS APHASIC. UNCOOPERATIVE. DOES NOT WANT TO STAY IN BED. SKIN HAS S/P LAP EXPLOR INCISION. IV ON R AC 20G SL. CLEAN, DRY AND INTACT. INCONTINENT. AMBULATORY BUT UNSTEADY. AMBULATE W ASSIST. FALL RISK PROTOCOL IN PLACE. BED IN LOW POSITION. CALL LIGHT WITHIN REACH. WILL CONTINUE TO MONITOR THE PATIENT
--- NOTE | 2019-01-25 07:20 | NUR ---
PT ADMITTED TO [facility] RM 124A. TRANSFERRED PT VIA JOSE WOODSON. REPORT GIVEN TO MARINO CORLEY. PT CARE TRANSFERRED TO RECEIVING RN.
[2019-01-25 07:30] VITALS: BP 98/54
[2019-01-25] MEDS ORDERED: MORPHINE SULFATE 2 MG/ML SYR IVP PRN (07:55)
--- NOTE | 2019-01-25 08:34 | NUR ---
PATIENT HAS BEEN SCREENED AND CATEGORIZED MODERATE NUTRITION RISK. PATIENT WILL BE SEEN WITHIN 3-5 DAYS OF ADMISSION. 01/27/19 01/29/[address]
[2019-01-25] MEDS ORDERED: busPIRone 5 MG TAB PO SCH (09:00)
[2019-01-25] MEDS: risperiDONE 1 MG TAB PO SCH ×2 (09:00→20:08)
[2019-01-25] MEDS ORDERED: LORazepam 1 MG TAB PO SCH (09:00)
[2019-01-25] MEDS ORDERED: BENZTROPINE 1 MG TAB PO SCH (09:00)
[2019-01-25] MEDS ORDERED: DOCUSATE SODIUM 250 MG GELCAP PO SCH (09:00)
[2019-01-25] MEDS ORDERED: DOCUSATE SODIUM 100 MG GELCAP PO SCH (09:00)
[2019-01-25] MEDS: SODIUM CHLORIDE 0.65% 45 ML BTL NS SCH ×2 (09:00→20:08)
[2019-01-25] MEDS: SENNA 8.6 MG TAB PO SCH ×3 (09:00→17:00)
[2019-01-25] MEDS: QUEtiapine FUMARATE 100 MG TAB PO SCH ×3 (09:00→17:00)
[2019-01-25] MEDS ORDERED: PANTOPRAZOLE 40 MG TABEC PO SCH (09:00)
[2019-01-25] MEDS ORDERED: PSYLLIUM 12.2 GM/PKT PO SCH (09:00)
--- NOTE | 2019-01-25 09:00 | NUR ---
DR ZAMAN SAID PATIENT IS NPO, NO MEDS GIVEN AT THIS TIME. WILL CONTINUE TO MONITOR
[2019-01-25] MEDS ORDERED: LORazepam 2 MG/ML VIAL IM/IVP PRN (09:05)
[2019-01-25] MEDS: HALOPERIDOL IM 5 MG/ML VIAL IM PRN (09:35)
--- NOTE | 2019-01-25 10:07 | NUR ---
placed ngt called dr boyd to place xray to confirm placement. swoosh heard and gastric contents present
--- NOTE | 2019-01-25 10:10 | NUR ---
PATIENT PULLED OUT NGT, PLACED NGT BACK IN. PATIENT ATTEMPTING TO REMOVE ALL LINES
--- NOTE | 2019-01-25 10:20 | NUR ---
GAVE BEDSIDE REPORT TO JORY RODRIGUEZ. PATIENT ENDORSED IN STABLE CONDITION
--- NOTE | 2019-01-25 10:21 | NUR ---
PT RECEIVED FROM MARINO CORLEY. WILL CONTINUE CARE.
--- NOTE | 2019-01-25 11:00 | NUR ---
BED LINENS CHANGED WITH HELP OF FOUR PEOPLE. PT TRIED TO KICK, PUNCH , AND ATTEMPTED TO PULL OUT NG TUBE. PT CHANGED SUCCESSFULLY. WILL CONTINUE TO ASSESS.
--- NOTE | 2019-01-25 11:10 | NUR ---
PT PULLED OUT NG TUBE. NOTIFIED. DR. ZAMAN WILL ORDER A SITTER
--- NOTE | 2019-01-25 13:00 | NUR ---
ALFONSO CORLEY ATTEMPTED TO INSET NG, RESISTANCE MET IN BOTH NOSTRILS AND NG NOT INSERTED. DR ZAMAN NOTIFIED.
--- NOTE | 2019-01-25 15:00 | NUR ---
PT IN BED. SITTER AT BEDSIDE. NO SIGNS OF ACUTE DISTRESS AT THIS TIME. WILL CONTINUE TO ASSESS FOR CHANGES IN CONDITION.
[2019-01-25 16:00] VITALS: BP 98/56
[2019-01-25] MEDS ORDERED: LORazepam 2 MG/ML VIAL IM/IVP SCH (16:00)
[2019-01-25] MEDS ORDERED: LORazepam 2 MG/ML VIAL IVP SCH (16:00)
--- NOTE | 2019-01-25 17:00 | NUR ---
PT IN BED. SITTER AT BEDSIDE. NO SIGNS OF ACUTE DISTRESS AT THIS TIME. WILL CONTINUE TO ASSESS FOR CHANGES IN CONDITION.
--- NOTE | 2019-01-25 18:27 | NUR ---
PT IN BED. AWAKE AND RESPONDS TO VERBAL STIMULI. BREATHING EVEN AND UNLABORED ON ROOM AIR. WILL CONTINUE TO MONITOR FOR CHANGES IN CONDITION.
--- NOTE | 2019-01-25 19:15 | NUR ---
PT ENDORSED TO NIGHT RN FOR CONTINUATION OF CARE. NO SIGNS OF ACUTE DISTRESS DURING BEDSIDE REPORT.
--- NOTE | 2019-01-25 19:16 | NUR ---
REPORT RECEIVED FROM AM NURSE AT BEDSIDE. PT IN STABLE CONDITION. AAOX1-2. INTRODUCED SELF TO PT. BOARD UPDATED. FLACC 0. NO SOB. AFEBRILE. PT IS ON SOFT WRIST AND MITTEN RESTRAINTS DUE TO PULLING AT LINES AND ATTEMPTING TO GET UP. IV SITE R AC 20G SL PATENT AND INTACT. SKIN WARM, DRY, AND INTACT WITH NO OPEN WOUNDS. DOES HAVE A EXPLORATORY LAP INCISION, BUT OTHERWISE INTACT. BED LOCKED IN LOW POSITION. CALL HODGES WITHIN REACH. SAFETY PRECAUTION IN PLACE. ALL NEEDS MET AT THIS TIME.
[2019-01-25 20:00] VITALS: BP 114/80
[2019-01-25] MEDS: LORazepam 2 MG/ML VIAL IM/IVP SCH ×2 (20:04→23:18)
--- NOTE | 2019-01-25 20:04 | NUR ---
ATIVAN GIVEN IVP FOR AGITATION. PT TOLERATED WELL. NS NOSE CLEANSER NOT GIVEN. NO NGTUBE PRESENT. RISPERDAL HELD DUE TO PT NO LONGER HAVING AN NG TUBE.
--- NOTE | 2019-01-25 21:30 | NUR ---
PT UP AND ALERT SITTING WITH 1:1 SITTER. NO S/S OF DISTRESS NOTED. WILL CONTINUE TO MONITOR.
[2019-01-25 22:25] LABS: ANION GAP 12.1 (8-16); CARBON DIOXIDE 25.5 mmol/L (21-32); CREATININE 0.9 mg/dL (0.7-1.3); POTASSIUM 4.6 mmol/L (3.5-5.1)
--- NOTE | 2019-01-25 23:18 | NUR ---
ATIVAN GIVEN FOR AGITATION. PT TOLERATED WELL.
--- NOTE | 2019-01-25 23:20 | NUR ---
PT RIGHT WRIST SLIGHTLY SWOLLEN. WRIST RESTRAINT REMOVED AND CHANGED TO MITTEN FOR INCREASED CIRCULATION. MD NOTIFIED. PT TOLERATING MITTEN AND NOT TRYING TO HIT, KICK OR PULL AT ANY LINES.
[2019-01-26] VITALS: BP 114/70
--- NOTE | 2019-01-26 00:45 | NUR ---
PT SITTING UP IN BED. NO S/S OF DISTRESS NOTED. NO COMPLAINTS OF PAIN. NO SOB. AFEBRILE. WILL CONTINUE TO MONITOR.
--- NOTE | 2019-01-26 02:30 | NUR ---
PT SLEEPING COMFORTABLY BUT AROUSABLE. NO S/S OF DISTRESS NOTED. RESPIRATIONS EVEN, UNLABORED, AND WNL. WILL CONTINUE TO MONITOR.
[2019-01-26 04:00] VITALS: BP 117/75
[2019-01-26] MEDS: LORazepam 2 MG/ML VIAL IM/IVP SCH ×5 (04:05→19:33)
--- NOTE | 2019-01-26 04:05 | NUR ---
ATIVAN GIVEN IVP FOR AGITATION. PT TOLERATED WELL.
[2019-01-26] MEDS: LEVOTHYROXINE 0.025 MG TAB PO SCH (05:42)
--- NOTE | 2019-01-26 06:30 | NUR ---
PT SLEEPING COMFORTABLY BUT AROUSABLE. NO S/S OF DISTRESS NOTED. PT IN STABLE CONDITION.
--- NOTE | 2019-01-26 07:10 | NUR ---
PT RECEIVED FROM NIGHT RN. PT BREATHING EVEN AND UNLABORED. WILL CONTINUE CARE.
[2019-01-26 07:38] LABS: ANION GAP 8.7 (8-16); CARBON DIOXIDE 30.1 mmol/L (21-32); CREATININE 0.9 mg/dL (0.7-1.3); POTASSIUM 4.8 mmol/L (3.5-5.1)
[2019-01-26 07:42] LABS: BASOPHILS # (AUTO) 0.1 K/uL (0.00-0.22); BASOPHILS % (AUTO) 1.3 % (0.0-2.0); EOSINOPHILS # (AUTO) 0.4 K/uL (0-0.4); EOSINOPHILS % (AUTO) 5.5 % (0.0-4.0); HEMATOCRIT 39.2 % (36-52); HEMOGLOBIN 12.8 g/dL (12.0-18.0); LYMPHOCYTES # (AUTO) 1.3 K/uL (2.0-11.5); LYMPHOCYTES % (AUTO) 18.9 % (20.5-51.1); MEAN CORPUSCULAR HEMOGLOBIN 32 pg (27-31); MEAN CORPUSCULAR HGB CONC 33 g/dL (33-37); MEAN CORPUSCULAR VOLUME 99.1 fL (80-94); MONOCYTES # (AUTO) 0.8 K/uL (0.8-1.0); MONOCYTES % (AUTO) 11.7 % (1.7-9.3); NEUTROPHILS # (AUTO) 4.3 K/uL (1.8-7.7); NEUTROPHILS % (AUTO) 62.6 % (42.2-75.2); PLATELET COUNT (AUTO) 269 K/uL (140-450); RED BLOOD CELL COUNT(AUTO) 3.95 MIL/uL (4.20-6.10); WHITE BLOOD COUNT (AUTO) 6.9 K/uL (4.8-10.8)
[2019-01-26 08:00] VITALS: BP 102/59
[2019-01-26 08:06] LABS: MAGNESIUM 1.8 mg/dL (1.8-2.4); PHOSPHORUS 3.3 mg/dL (2.5-4.9)
[2019-01-26] MEDS: risperiDONE 1 MG TAB PO SCH (09:00)
[2019-01-26] MEDS: QUEtiapine FUMARATE 100 MG TAB PO SCH ×2 (09:00→20:40)
[2019-01-26] MEDS: SENNA 8.6 MG TAB PO SCH ×3 (09:00→17:26)
--- NOTE | 2019-01-26 09:00 | NUR ---
PT IN BED. NO SIGNS OF ACUTE DISTRESS AT THIS TIME. WILL CONTINUE TO MONITOR.
[2019-01-26] MEDS: SODIUM CHLORIDE 0.65% 45 ML BTL NS SCH ×2 (09:06→20:40)
--- NOTE | 2019-01-26 10:55 | NUR ---
DR. ZAMAN ON UNIT AND SHE WAS NOTIFIED THAT RESTRAINTS ORDER NEEDS TO BE RENEWED.
--- NOTE | 2019-01-26 11:00 | NUR ---
PT IN BED. NO SIGNS OF ACUTE DISTRESS AT THIS TIME. WILL CONTINUE TO MONITOR.
[2019-01-26 12:00] VITALS: BP 126/72
--- NOTE | 2019-01-26 13:00 | NUR ---
PT IN BED. BREATHING EVEN AND UNLABORED ON ROOM AIR. NO SIGNS OF ACUTE DISTRESS AT THIS TIME. WILL CONTINUE TO MONITOR.
--- NOTE | 2019-01-26 15:00 | NUR ---
PT IN BED. NO SIGNS OF ACUTE DISTRESS AT THIS TIME. WILL CONTINUE TO MONITOR.
--- NOTE | 2019-01-26 15:19 | NUR ---
01/26/19 RD INITIAL ASSESSMENT COMPLETED PLEASE REFER TO NUTRITION ASSESSMENT UNDER CARE ACTIVITY FOR ESTIMATED NUTRITIONAL NEEDS. 1. CONTINUE NPO MEDICALLY APPROPRIATE 2. IF/WHEN PATIENT IS MEDICALLY STABLE CONSIDER SWALLOW EVALUATION 3. IF PATIENT IS UNABLE TO ADVANCE TO PO DIET, CONSIDER INITIATING PARENTERAL NUTRITION 4. RD TO FOLLOW-UP 2-3 DAYS, HIGH RISK COLETTE HARTLEY RD
[2019-01-26 16:00] VITALS: BP 102/62
--- NOTE | 2019-01-26 16:10 | NUR ---
PT IV LEAVING TO R AC. IV REMOVED AND WILL BE REPLACED. Addendum: 01/26/19 at 1933 by Carolyn Lee RN PT IV LEAKING
--- NOTE | 2019-01-26 17:10 | NUR ---
PT IN BED. NO SIGNS OF ACUTE DISTRESS AT THIS TIME. WILL CONTINUE TO MONITOR.
--- NOTE | 2019-01-26 19:25 | NUR ---
PT ENDORSED TO NIGHT RN. PT BREATHING EVEN AND UNLABORED ON ROOM AIR. NO SIGNS OF ACUTE DISTRESS AT THIS TIME.
--- NOTE | 2019-01-26 19:26 | NUR ---
REPORT RECEIVED FROM AM NURSE AT BEDSIDE. PT IN STABLE CONDITION. AAOX1-2. INTRODUCED SELF TO PT. BOARD UPDATED. FLACC 0. NO SOB. AFEBRILE. PT IS AMBULATORY WITH ASSIST BUT IS ON 1:1 SITTER FOR AGITATION. PT HAS SOFT WRIST RESTRAINTS. PT NO LONGER HAS IV SITE ACCESS DUE TO HIM PULLING AT LINES. IS AWARE. SKIN WARM, DRY, AND NOT INTACT DUE TO A SURGICAL S/P EX LAP. BED LOCKED IN LOW POSITION. CALL HODGES WITHIN REACH. SAFETY PRECAUTION IN PLACE. ALL NEEDS MET AT THIS TIME.
--- NOTE | 2019-01-26 19:33 | NUR ---
SCHEDULED ATIVAN GIVEN IM FOR AGITATION. PT TOLERATED WELL.
[2019-01-26 20:00] VITALS: BP 96/65
--- NOTE | 2019-01-26 20:10 | NUR ---
MD NOTIFIED OF PATIENT BEING AGITATED. AWAITING NEW ORDERS.
[2019-01-26] MEDS ORDERED: HALOPERIDOL IM 5 MG/ML VIAL IM SCH (20:20)
[2019-01-26] MEDS ORDERED: diphenhydrAMINE 50 MG/ML VIAL IM SCH (20:20)
[2019-01-26] MEDS: DIVALPROEX SPRINKLES 125 MG CAPDR PO SCH (20:39)
--- NOTE | 2019-01-26 20:39 | NUR ---
BENADRYL AND HALDOL GIVEN IM. SEROQUEL AND DEPAKOTE CRUSHED PUT IN PUDDING. PT TOLERATED WELL. OCEAN SPRAY GIVEN IN EACH NOSTRIL.
--- NOTE | 2019-01-26 22:30 | NUR ---
PT LAYING IN BED. NO S/S OF DISTRESS NOTED. WILL CONTINUE TO MONITOR.
[2019-01-27] VITALS: BP 91/57
[2019-01-27] MEDS: LORazepam 2 MG/ML VIAL IM/IVP SCH ×6 (00:06→18:20)
--- NOTE | 2019-01-27 00:06 | NUR ---
ATIVAN GIVEN IM. PT TOLERATED WELL.
--- NOTE | 2019-01-27 01:50 | NUR ---
PT SLEEPING COMFORTABLY BUT AROUSABLE. NO S/S OF DISTRESS NOTED. NO COMPLAINTS OF PAIN. NO SOB. AFEBRILE. WILL CONTINUE TO MONITOR.
--- NOTE | 2019-01-27 03:16 | NUR ---
ATIVAN GIVEN FOR AGITATION. PT TOLERATED WELL.
[2019-01-27 04:00] VITALS: BP 100/65
--- NOTE | 2019-01-27 05:00 | NUR ---
PT SLEEPING COMFORTABLY BUT AROUSABLE. NO S/S OF DISTRESS NOTED. NO COMPLAINTS OF PAIN. NO SOB. AFEBRILE. WILL CONTINUE TO MONITOR.
[2019-01-27] MEDS: LEVOTHYROXINE 0.025 MG TAB PO SCH (05:44)
--- NOTE | 2019-01-27 05:45 | NUR ---
SYNTHROID HELD DUE TO PT BEING VERY DROWSY AND POSSIBLY OF PT ASPIRATING MEDICATION OR FOOD.
--- NOTE | 2019-01-27 07:10 | NUR ---
PT SLEEPING COMFORTABLY. PT IN STABLE CONDITION.
--- NOTE | 2019-01-27 07:12 | NUR ---
RECEIVED BEDSIDE REPORT FROM [facility] REPRESENTATIVE NURSE FOR CONTINUITY OF CARE. PATIENT IS SLEEPING ON BED COMFORTABLY. AROUSABLE TO VOICE. PATIENT IS AOX1 DUE TO MENTAL STATUS. EVEN AND UNLABORED CHEST RISES ON RA NOTED. FLACC 0. NO SIGNS OF DISTRESS NOTED. NO IV ACCESS DUE TO PATIENT PULLED OUT IV AND REFUSED IV ESTABLISHED. SURGICAL INCISION SCAR ON ABDOMINAL AREA NOTED. PATIENT IS BEDREST. FALL RISK PRECAUTION IN PLACE AND SIGNS POSTED.SAFETY MEASURES IN PLACE. BED IN LOW POSITION AND 1:1 SITTER BY BEDSIDE.
[2019-01-27 08:00] VITALS: BP 92/58
[2019-01-27 08:02] LABS: BASOPHILS # (AUTO) 0.1 K/uL (0.00-0.22); BASOPHILS % (AUTO) 1.3 % (0.0-2.0); EOSINOPHILS # (AUTO) 0.3 K/uL (0-0.4); EOSINOPHILS % (AUTO) 6.4 % (0.0-4.0); HEMOGLOBIN 12.7 g/dL (12.0-18.0); LYMPHOCYTES # (AUTO) 1.3 K/uL (2.0-11.5); LYMPHOCYTES % (AUTO) 28.7 % (20.5-51.1); MEAN CORPUSCULAR HEMOGLOBIN 32 pg (27-31); MEAN CORPUSCULAR HGB CONC 33 g/dL (33-37); MEAN CORPUSCULAR VOLUME 99.3 fL (80-94); MONOCYTES # (AUTO) 0.6 K/uL (0.8-1.0); MONOCYTES % (AUTO) 13.6 % (1.7-9.3); NEUTROPHILS # (AUTO) 2.3 K/uL (1.8-7.7); PLATELET COUNT (AUTO) 263 K/uL (140-450); RED BLOOD CELL COUNT(AUTO) 3.93 MIL/uL (4.20-6.10); RED CELL DISTRIBUTION WIDTH 14.5 % (11.6-13.7); WHITE BLOOD COUNT (AUTO) 4.7 K/uL (4.8-10.8)
--- NOTE | 2019-01-27 09:50 | NUR ---
PATIENT IS SLEEPING ON BED. TRIED TO WAKE UP PATIENT FOR MEDICATION ADMINISTER, PATIENT OPENED HIS EYES AND TURNED HIS BACK AND WENT BACK TO SLEEP. RESPIRATION EVEN AND UNLABORED ON RA. NO SIGNS OF DISTRESS NOTED. SAFETY MEASURES IN PLACE. BED IN LOW POSITION AND CALL LIGHT WITHIN REACH. FALL RISK PRECAUTION INITIALED AND BED ALARM ACTIVATED. 1:1 SITTER BY BEDSIDE.
--- NOTE | 2019-01-27 10:20 | NUR ---
RECEIVED A CALL FROM LAB THAT PATIENT IS POSITIVE FOR MRSA NARES. NOTIFIED DR MCCAIN AND INITIALED CONTACT PRECAUTION. SIGNS POSTED ON DOOR.
[2019-01-27] MEDS: SODIUM CHLORIDE 0.65% 45 ML BTL NS SCH ×2 (10:32→21:00)
[2019-01-27] MEDS: QUEtiapine FUMARATE 100 MG TAB PO SCH ×2 (10:33→20:53)
[2019-01-27] MEDS: SENNA 8.6 MG TAB PO SCH ×3 (10:33→17:11)
[2019-01-27] MEDS: DIVALPROEX SPRINKLES 125 MG CAPDR PO SCH ×2 (10:33→20:53)
--- NOTE | 2019-01-27 10:34 | NUR ---
ADMINISTERED MEDS PER MD ORDER, PATIENT TOLERATED WELL. MEDS EDUCATION PROVIDED TO PATIENT, REINFORCEMENT NEEDED DUE TO PATIENT'S MENTAL STATUS. PATIENT AWAKE AND RESTING ON BED QUIETLY. PRIMARY CARETAKERS BY BEDSIDE. NO SIGNS OF DISTRESS NOTED. SAFETY MEASURES IN PLACE. BED IN LOW POSITION AND CALL LIGHT WITHIN REACH. BED ALARM ACTIVATED AND 1:1 SITTER BY BEDSIDE.
--- NOTE | 2019-01-27 10:48 | NUR ---
REFERRAL FAXED TO [facility]. WILL FOLLOW UP.
[2019-01-27 11:24] LABS: ANION GAP 10.8 (8-16); POTASSIUM 4.8 mmol/L (3.5-5.1)
--- NOTE | 2019-01-27 11:40 | NUR ---
DR JIN IS BY BEDSIDE. NO SIGNS OF DISTRESS NOTED. SAFETY MEASURES IN PLACE. BED IN LOW POSITION AND CALL LIGHT WITHIN REACH. FALL RISK PRECAUTION INITIALED AND BED ALARM ACTIVATED. 1:1 SITTER BY BEDSIDE.
[2019-01-27] MEDS: CHLORHEXADINE GLUC 2% CLOTH TP SCH (13:35)
[2019-01-27] MEDS: MUPIROCIN CA NASAL 2% 1GM TUBE NS SCH (13:36)
--- NOTE | 2019-01-27 13:36 | NUR ---
ADMINISTERED MEDS PER MD ORDER, PATIENT TOLERATED WELL. WIPED PATIENT WITH CHLORHEXADINE CLOTH, EDUCATION PROVIDED TO PATIENT AND REINFORCEMENT NEEDED DUE TO PATIENT'S MENTAL STATUS. NO SIGNS OF DISTRESS NOTED. SAFETY MEASURES IN PLACE. BED IN LOW POSITION AND 1:1 SITTER BY BEDSIDE.
--- NOTE | 2019-01-27 14:17 | NUR ---
*S.T. Bedside swallow eval completed* See report for details. Pt presents w/ moderate-severe oropharyngeal dysphagia c/b labial spillage, lingual protrusion at rest and during swallow, absent mastication of solids and coughing observed after swallow of thin liquids by cup sip. Pt is at risk for aspiration. Recommend: 1) Downgrade diet textures to puree w/ nectar thick liquids via controlled cup sip only. NO STRAWS. 2) P.o. meds crushed and mixed w/ puree 3) 1:1 feeder w/ aspiration precautions. Pt is functioning at reported baseline. Therefore no further tx indicated at this time. DC to [facility]. Endorsed to JORY Delacruz. Time [id number]
--- NOTE | 2019-01-27 14:24 | NUR ---
RADIO TREY CARLOS BY BEDSIDE AND DOING ECHOCARDIOGRAM. NO SIGNS OF DISTRESS NOTED. TELE MONITOR ATTACHED. SAFETY MEASURES IN PLACE. BED IN LOW POSITION AND CALL LIGHT WITHIN REACH. FALL RISK PRECAUTION INITIALED AND BED ALARM ACTIVATED. 1:1 SITTER BY BEDSIDE.
--- NOTE | 2019-01-27 15:34 | NUR ---
DISCHARGE PLANNING Followed-up with [facility] for [facility]F placement. [facility] unable to accept this patient due to multiple psych meds. Toby faxed inquire to [facility], [facility] and [facility] for possible dc on Wednesday01/29/19. Toby will continue following-up as needed. JUICE Duran, Machine [employer], YVETTE Ext [phone] Addendum: 01/27/19 at 1640 by Zeinab R[address]e [facility] is unable to accept the patient. JUICE Duran Ext [phone]
--- NOTE | 2019-01-27 16:01 | NUR ---
WOUND CARE EVALUATION WITH PRIMARY RN IN THIS MORNING TO ABDOMINAL SURGICAL WOUND WITH MULTIPLE DAYO, 11CM IN LENGTH DRY AND CLEAN, NO DRAINAGE, NO S/S OF WOUND DEHISCENCE, ASHLEE WOUND SKIN WITH ERYTHEMA, INTACT. PT. ADMITTED WITH TRANSPARENT DRESSING AND ABDOMINAL BINDER IN PLACE. PRIMARY RN AT BED SIDE, PHOTO TAKEN.SACRALCOCCYX, BUTTOCKS BLANCHABLE REDNESS WITH SKIN INTACT. RECOMMENDATIONS: -CLEANSE ABDOMINAL SURGICAL WOUND/ DAYO WITH NS. PAT DRY, PAINT ASHLEE WOUND SKIN WITH BETADINE SOLUTION, COVER WITH COMPASITE DRESSING QD AND PRN IF SOILING -APPLY HYDRAGUARD TO SACRALCOCCYX AND BUTTOCKS BID AND PRN IF SOILING, OWNER/PHOTOGRAPHER -WRIST RESTRAINT TO CHECK AND RELEASE Q2H FOR 10 MINUTES AND ASSESS SKIN CONDITION TO WRISTS AREA -KEEP PT. DRY AND CLEAN AT ALL TIMES. POC DISCUSSED WITH PRIMARY RN PLEASE CONTACT WOUND CARE NURSE IF ANY QUESTIONS OR CHANGE OF WOUND CONDITION.
--- NOTE | 2019-01-27 17:04 | NUR ---
NOTIFIED DR MCCAIN THAT PATIENT IS AGITATED BUT BP WAS 92/[address] MCCAIN AND DR VILLATORO CAME TO BEDSIDE. PER ADÁN AND DR VILLATORO, ADMINISTER PRN HALOPERIDOL AND BENADRYL, AND HOLD THE SCHEDULED 1800 ATIVAN DUE TO HIS LOW BP. WILL ADMINISTER MED PER MD ORDER, PATIENT IS ROLLING ON BED AND ATTEMPTING TO JUMP OUT. SITTER IS BY BEDSIDE.
[2019-01-27] MEDS: HALOPERIDOL IM 5 MG/ML VIAL IM PRN (17:12)
--- NOTE | 2019-01-27 17:12 | NUR ---
ADMINISTERED MEDS PER MD ORDER, VERIFIED HALDOL 0.2ML WITH CHARGE NURSE, ADMINISTERED VIA IM PER MD ORDER. PATIENT IS SITTING UP ON BED QUIETLY. 1:1 SITTER BY BEDSIDE.
[2019-01-27] MEDS ORDERED: diphenhydrAMINE 50 MG/ML VIAL IVP SCH (17:15)
--- NOTE | 2019-01-27 17:50 | NUR ---
INFORMED DR MCCAIN THAT PATIENT IS STILL VERY AGITATED AND ATTEMPTED TO GET OUR OF BED. DR MCCAIN CAME AND SEE PATIENT. PER DR MCCAIN, ADMINISTERED THE 1800 ATIVAN, BENADRYL AND SCHEDULED MED. WILL ADMINISTER MED PER MD ORDER.
[2019-01-27] MEDS ORDERED: risperiDONE 1 MG TAB PO SCH (18:05)
[2019-01-27] MEDS ORDERED: LORazepam 2 MG/ML VIAL ONE (18:16)
[2019-01-27] MEDS: diphenhydrAMINE 50 MG CAP PO SCH (18:20)
--- NOTE | 2019-01-27 18:20 | NUR ---
CHECKED VITAL SIGNS AND RECEIVED 92/61, MAP 69, PULSE 82, AND SPO2 100%. ADMINISTERED MEDS PER MD ORDER, MIXED WITH APPLE SAUCE, PATIENT TOLERATED WELL. PATIENT IS CRAWLING AROUND ON BED AND USING HIS LEFT LEG TRYING TO GET OUT OF BED. 1:1 SITTER BY BEDSIDE.
--- NOTE | 2019-01-27 19:45 | NUR ---
ENDORSED PATIENT AT BEDSIDE TO FIT MODEL NURSE FOR CONTINUITY OF CARE. PATIENT IS AWAKE AND SITTING UP ON BED. NO SIGNS OF DISTRESS NOTED. SAFETY MEASURES IN PLACE. BED IN LOW POSITION AND 1:1 SITTER BY BEDSIDE.
--- NOTE | 2019-01-27 19:45 | NUR ---
RECIEVED PT. AAOX1 , NID , SHOWING OF AGITATION , ON SOFT WRIST RESTRAINT , ON 1:1 SITTER , IV SITE INTACT AND PATENT , ON SAFETY / FALL PRECAUTION PROTOCOL - BED ALARM ON , PLAN OF CARE DISCUSSED BUT POOR UNDERSTANDING DUE TO MENTAL STATUS - CALL LIGHT WITHIN REACH , INCONTINENT , WILL CONT. TO MONITOR.
[2019-01-27 20:00] VITALS: BP 97/57
--- NOTE | 2019-01-27 22:00 | NUR ---
INCREASING AGITATION REFER TO DR. RODRIGUEZ - MADE NEW ORDERS AND CARRIED OUT.
[2019-01-27] MEDS ORDERED: HALOPERIDOL IM 5 MG/ML VIAL ONE (22:09)
[2019-01-27] MEDS ORDERED: diphenhydrAMINE 50 MG/ML VIAL ONE (22:10)
[2019-01-27] MEDS ORDERED: diphenhydrAMINE 50 MG/ML VIAL IM SCH (22:10)
[2019-01-27] MEDS ORDERED: HALOPERIDOL IM 5 MG/ML VIAL IM SCH (22:10)
--- NOTE | 2019-01-27 22:10 | NUR ---
BP 97/57 MMHG , MEAN 65 , O2 SAT. 97% - BENADRYL TIV , HALDOL TIV GIVEN ORDERED. -WILL CONT. TO MONITOR. -ON 1:1 SITTER. Addendum: 01/28/19 at 0033 by Irina Merrill RN [facility] [place]
[2019-01-28] MEDS: HYDRAGUARD CREAM TP SCH ×2 (01:00→13:40)
--- NOTE | 2019-01-28 01:06 | NUR ---
REFER TO DR. RODRIGUEZ DUE TO STILL SHOWING AGITATION INSPITE OF HALDOL AND BENADRYL GIVEN , INFORM HER ABOUT STANDING ORDER OF ATIVAN - TJE LAST GIVEN OF ATIVAN IS 6PM - DR RODRIGUEZ AGREED TO GIVE ATIVAN NOW. WILL CONT. TO MONITOR.
[2019-01-28] MEDS: LORazepam 2 MG/ML VIAL IM/IVP SCH ×5 (01:19→23:45)
--- NOTE | 2019-01-28 01:19 | NUR ---
BP 111 /62 ATIVAN 2MG PAIGE GIVEN AT RIGHT UPPER DELTOID - PROCEDURE TOLERATED WELL - WILL CONT. TO MONITOR. ON 1:1 SITTER . FOR CLOSELY WATCH.
[2019-01-28 04:00] VITALS: BP 111/60
--- NOTE | 2019-01-28 04:26 | NUR ---
REFER TO DR Jaspreet RODRIGUEZ DUE TO PT IS STILL AWAKE AND AGITATES INSPITE OF HALDOL PAIGE , BENADRYL PAIGE AND ATIVAN IM - WAITING FOR FURTHER ORDERS , WILL CONT. TO MONITOR .
[2019-01-28] MEDS ORDERED: HALOPERIDOL IM 5 MG/ML VIAL IM ONE (04:30)
[2019-01-28] MEDS ORDERED: HALOPERIDOL IM 5 MG/ML VIAL IM SCH (05:00)
[2019-01-28] MEDS ORDERED: diphenhydrAMINE 50 MG/ML VIAL IM SCH (05:00)
[2019-01-28] MEDS: diphenhydrAMINE 50 MG CAP PO SCH ×4 (05:32→17:49)
--- NOTE | 2019-01-28 06:00 | NUR ---
MADE ROUNDS STILL AWAKE , NO SIGNS OF RESP. DISTRESS NOTED. ON ON 1 SITTER
[2019-01-28] MEDS: LEVOTHYROXINE 0.025 MG TAB PO SCH (06:55)
--- NOTE | 2019-01-28 07:25 | NUR ---
PT RECEIVED FROM NIGHT NURSE. PT ASLEEP. SKIN DRY AND WARM, UPPER ABDOMINAL SURGICAL INCISION. DRESSING CLEAN AND DRY. IV R FA 20G SALINE LOCK IN PLACE. RESPIRATIONS EVEN AND UNLABORED. NO SIGNS OF DISTRESS OR PAIN. SOFT WRIST RESTRAINTS IN PLACE. BED IN LOW POSITION. SAFETY MEASURES IN PLACE. CALL LIGHT WITHIN REACH. WILL CONTINUE TO MONITOR.
[2019-01-28] MEDS ORDERED: risperiDONE 1 MG TAB PO SCH (09:00)
--- NOTE | 2019-01-28 09:00 | NUR ---
PATIENT LYING DOWN IN BED SLEEPING, AROUABLE BY TOUCH. NO DISTRESS NOTED. FLACC 0. RESTRAINTS OFF AT THIS TIME. SITTER AT BEDSIDE. WILL CONTINUE TO MONITOR.
[2019-01-28] MEDS ORDERED: MORPHINE SULFATE 2 MG/ML SYR IVP PRN (09:15)
[2019-01-28] MEDS: SENNA 8.6 MG TAB PO SCH ×3 (10:47→17:49)
[2019-01-28] MEDS: SODIUM CHLORIDE 0.65% 45 ML BTL NS SCH ×2 (10:47→20:06)
[2019-01-28] MEDS: DIVALPROEX SPRINKLES 125 MG CAPDR PO SCH ×2 (10:47→17:49)
[2019-01-28] MEDS: QUEtiapine FUMARATE 100 MG TAB PO SCH ×2 (10:48→17:49)
--- NOTE | 2019-01-28 11:30 | NUR ---
PATIENT LYING DOWN IN BED SLEEPING, AROUSABLE BY TOUCH. CONDITION UNCHANGED. SITTER AT BEDSIDE. WILL CONTINUE TO MONITOR.
[2019-01-28 12:00] VITALS: BP 114/62
[2019-01-28] MEDS: CHLORHEXADINE GLUC 2% CLOTH TP SCH (13:40)
[2019-01-28] MEDS: GAUZE TP SCH (13:40)
[2019-01-28] MEDS: MUPIROCIN CA NASAL 2% 1GM TUBE NS SCH (13:40)
--- NOTE | 2019-01-28 13:45 | NUR ---
PATIENT LYING DOWN IN BED. ALREADY ATE LUNCH. SCHEDULED MEDICATIONS DUE GIVEN. RESTRAINTS CURRENTLY ON PATIENT PATIENT IS TRYING TO GET OUT OF BED AFTER LUNCH. WILL CONTINUE TO MONITOR.
[2019-01-28 14:14] LABS: BASOPHILS # (AUTO) 0.1 K/uL (0.00-0.22); BASOPHILS % (AUTO) 0.7 % (0.0-2.0); EOSINOPHILS # (AUTO) 0.3 K/uL (0-0.4); EOSINOPHILS % (AUTO) 3.5 % (0.0-4.0); HEMATOCRIT 40.8 % (36-52); HEMOGLOBIN 13.3 g/dL (12.0-18.0); LYMPHOCYTES # (AUTO) 1.7 K/uL (2.0-11.5); LYMPHOCYTES % (AUTO) 21.2 % (20.5-51.1); MEAN CORPUSCULAR HEMOGLOBIN 32 pg (27-31); MEAN CORPUSCULAR HGB CONC 33 g/dL (33-37); MEAN CORPUSCULAR VOLUME 98.9 fL (80-94); MONOCYTES # (AUTO) 0.6 K/uL (0.8-1.0); MONOCYTES % (AUTO) 7.6 % (1.7-9.3); NEUTROPHILS # (AUTO) 5.3 K/uL (1.8-7.7); PLATELET COUNT (AUTO) 308 K/uL (140-450); RED BLOOD CELL COUNT(AUTO) 4.13 MIL/uL (4.20-6.10); RED CELL DISTRIBUTION WIDTH 14.7 % (11.6-13.7); WHITE BLOOD COUNT (AUTO) 7.9 K/uL (4.8-10.8)
[2019-01-28 14:36] LABS: ANION GAP 12.8 (8-16); CARBON DIOXIDE 27.2 mmol/L (21-32)
[2019-01-28 16:00] VITALS: BP 99/55
[2019-01-28] MEDS: risperiDONE 1 MG TAB PO SCH (17:49)
--- NOTE | 2019-01-28 18:02 | NUR ---
PATIENT SITTING IN BED WITH DINNER TRAY IN FRONT. NO DISTRESS NOTED. SCHEDULED MEDICATIONS DUE GIVEN. WILL CONTINUE TO MONITOR.
--- NOTE | 2019-01-28 19:15 | NUR ---
PT PASSED ON TO NIGHT NURSE IN STABLE CONDITION FOR CONTINUITY OF CARE.
--- NOTE | 2019-01-28 19:16 | NUR ---
RECEIVED BEDSIDE REPORT TO CL[place]ON RN. PT IS AAOX1. HX OF DOWN SYNDROME. PT ON SOFT WRIST AND MITTEN ORDERED JUST RENEWED AT 1912 D/T HIGH RISK OF INJURY TO SELF. PT WITH SURGICAL INCISION ON ABDOMEN. S/P EXPLORATORY LAP. HAS DRESSING C/D/I. PT INCONTINENT. ABLE TO TAKE PILLS WITH APPLE SAUCE. ON FALL,ASPIRATION, AND CONTACT ISOLATION. CONTACT FOR ACTIVE MRSA OF NARES. IV ON R FA 20G SL. SITTER AT BEDSIDE. WILL CONTINUE TO MONITOR.
--- NOTE | 2019-01-28 19:58 | NUR ---
PATIENT IS RESTLESS ATTEMPTING TO GET OUT OF BED. VSS ADMINISTERED SUSAN ATIVAN IVP. AND SUSAN DESYREL. PT TOLERATED WELL. WILL CONTINUE TO ROUND FREQUENTLY.
[2019-01-28] MEDS: HALOPERIDOL IM 5 MG/ML VIAL IM PRN (20:18)
--- NOTE | 2019-01-28 20:18 | NUR ---
ADMINISTERED HALDOL IM PRN. PT TOLERATED WELL. PT IN BED WITH 1:1 SITTER. WILL CONTINUE TO MONITOR.
--- NOTE | 2019-01-28 20:27 | NUR ---
GAVE BEDSIDE REPORT TO LAWRENCE CORLEY. Patient's Plan of Care was discussed and reviewed with LAWRENCE JOHNSON. WILL CONTINUE TO MONITOR.
--- NOTE | 2019-01-28 20:28 | NUR ---
RECD. SITTING ON AWAKE, ALERT, DOES NOT FOLLOW COMMANDS. VERY AGITATED AND RESTLESS. RESPIRATION EVEN AND UNLABORED. IV SALINE LOCK AT THE RIGHT FOREARM G20, COVERED WITH DRESSING. INCISION IN THE ABDOMEN COVERED WITH DRESSING AND ABDOMINAL BINDER. ON BILATERAL SOFT WRIST RESTRAINTS, AND MITTENS. ALWAYS TRYING TO GET OUT OF BED, PUTTING OUT HIS TWO BILATERAL LOWER EXTREMITIES OUTSIDE OF THE SIDE RAILS. WILL CONTINUE TO MONITOR FOR SAFETY. NO APPEARANCE OF DISCOMFORT NOTED FLACC -0.
[2019-01-28] MEDS ORDERED: traZODone 50 MG TAB PO SCH (21:00)
--- NOTE | 2019-01-28 21:00 | NUR ---
STILL RESTLESS, OCCASIONALLY TRIES TO BANG HIS HEAD ON THE HEADBOARD.
--- NOTE | 2019-01-28 21:30 | NUR ---
STILL VERY RESTLESS. TRYING TO GET OUT OF BED.
--- NOTE | 2019-01-28 22:00 | NUR ---
TRYING TO STAND UP IN BED, SEEMS DROWSY BUT STILL KEEPS ON MOVING IN BED.
--- NOTE | 2019-01-28 22:30 | NUR ---
STILL AWAKE AND TRYING TO GET OUT OF BED. WILL CONTINUE TO MONITOR.
--- NOTE | 2019-01-28 23:00 | NUR ---
ON DIAPER BUT WET THE BED DUE TO CONSTANT MOVING AND TRYING TO GET OUT OF BED. CLEANSED AND REPOSITIONED IN BED WITH PILLOWS ON SIDES. BEDDINGS AND GOWN CHANGED.
--- NOTE | 2019-01-28 23:45 | NUR ---
STILL RESTLESS, TRYING TO GET OUT OF BED. MEDICATED WITH ATIVAN BY TACK WELDER LUCILLE.
[2019-01-29] VITALS: BP 86/55
[2019-01-29] MEDS: diphenhydrAMINE 50 MG CAP PO SCH ×4 (00:17→18:38)
--- NOTE | 2019-01-29 00:17 | NUR ---
STILL WITH RESTLESSNESS, OCCASIONALLY TRIES TO BITE NURSE AND BANGS HEAD AGAINST THE BED. MEDICATED WITH BENADRYL ORDERED, MIX WITH APPLE SAUCE, TOLERATED WELL.
--- NOTE | 2019-01-29 01:00 | NUR ---
RESTLESS, TRYING TO GET OUT OF BED.
[2019-01-29] MEDS: HYDRAGUARD CREAM TP SCH ×2 (01:39→13:00)
[2019-01-29] MEDS: HALOPERIDOL IM 5 MG/ML VIAL IM PRN ×2 (02:23→23:40)
--- NOTE | 2019-01-29 02:23 | NUR ---
STILL RESTLESS, AGITATED, MEDICATED WITH HALDOL IM PER MD ORDER.
--- NOTE | 2019-01-29 03:00 | NUR ---
STILL RESTLESS, TRYING TO GET OUT OF BED, UNABLE TO SLEEP SINCE BEGINN.ING OF SHIFT.
--- NOTE | 2019-01-29 04:30 | NUR ---
BP CHECKED - 87/46, HR - 76. STILL VERY RESTLESS, AGITATED. INFORMED DR. ORTIZ. ORDERED BENADRYL 25 MG IV, MAY ALSO GIVE SCHEDULED ATIVAN IVP.
--- NOTE | 2019-01-29 04:35 | NUR ---
DIFFICULT TO GIVE BOLUS, PATIENT IS NEVER STEADY,ALWAYS CHANGING POSITION, TRYING TO GET OUT OF BED.
[2019-01-29] MEDS ORDERED: diphenhydrAMINE 50 MG/ML VIAL IVP SCH (05:00)
[2019-01-29] MEDS: LORazepam 2 MG/ML VIAL IM/IVP SCH ×5 (05:00→20:08)
--- NOTE | 2019-01-29 05:00 | NUR ---
VS: 87/46 HR 76. ADMINISTERED 2MG IVP AND BENADRYL [address] PATRICIA. PTS B/P TEND TO RUN SLOW. PT WITH 1:1 SITTER. WILL CONTINUE TO MONITOR.
--- NOTE | 2019-01-29 05:02 | NUR ---
STILL VERY AGITATED, RESTLESS, UNABLE TO SLEEP. MEDICATED WITH ATIVAN AND BENADRYL IVP BY JORY NEGRO.
--- NOTE | 2019-01-29 05:47 | NUR ---
WITH STRONG RIGHT ARM, SEVERAL TIMES ABLE TO TAKE OFF MITTEN AND SOFT WRIST RESTRAINT.
--- NOTE | 2019-01-29 06:11 | NUR ---
STILL RESTLESS AND AGITATED. KEEP ON TRYING TO GET OUT OF BED.
[2019-01-29] MEDS: LEVOTHYROXINE 0.025 MG TAB PO SCH (06:35)
--- NOTE | 2019-01-29 07:10 | NUR ---
RECEIVED REPORT FROM SPAGHETTI MACHINE OPERATOR NURSE. PATIENT IS SITTING UP IN BED, CURRENTLY AGITATED. WILL CONTINUE WITH CURRENT PLAN OF CARE.
--- NOTE | 2019-01-29 07:20 | NUR ---
CONDITION REMAIN STABLE. ENDORSED TO AM SHIFT NURSE FOR CONTINUITY OF CARE.
[2019-01-29] MEDS: SENNA 8.6 MG TAB PO SCH ×3 (08:03→17:00)
[2019-01-29] MEDS: risperiDONE 1 MG TAB PO SCH ×3 (08:04→17:00)
[2019-01-29] MEDS: DIVALPROEX SPRINKLES 125 MG CAPDR PO SCH ×3 (08:04→17:00)
[2019-01-29] MEDS: QUEtiapine FUMARATE 100 MG TAB PO SCH ×3 (08:04→17:00)
[2019-01-29] MEDS: NACL 0.9% 1,000 ML IV SCH ×2 (08:05→18:06)
[2019-01-29] MEDS ORDERED: BISACODYL 5 MG TABEC PO PRN (08:05)
[2019-01-29] MEDS: DOCUSATE SODIUM 100 MG GELCAP PO SCH (08:14)
[2019-01-29] MEDS: POLYETHYLENE GLYCOL 17 GM/PKT PO SCH ×2 (08:14→20:09)
[2019-01-29] MEDS: SODIUM CHLORIDE 0.65% 45 ML BTL NS SCH ×2 (08:15→20:09)
--- NOTE | 2019-01-29 08:45 | NUR ---
ADMINISTERED MORNING MEDICATION VIA PUDDING. PATIENT TOLERATED WELL. ADMINISTERED MORNING DOSE OF ATIVAN IM TO LEFT DELTOID. NO COMPLAINTS AT THIS TIME. SITTER AT BEDSIDE.
[2019-01-29] MEDS ORDERED: QUEtiapine FUMARATE 100 MG TAB PO SCH (09:00)
--- NOTE | 2019-01-29 12:00 | NUR ---
DID NOT ADMINISTER AFTERNOON MEDICATION D/T PATIENT ASLEEP IN BED. IV NOT PATENT, NO IV FLUIDS INITIATED D/T NO PATENT IV ACCESS. DR REYEZ MADE AWARE.
[2019-01-29 12:03] LABS: BASOPHILS # (AUTO) 0.1 K/uL (0.00-0.22); BASOPHILS % (AUTO) 0.8 % (0.0-2.0); EOSINOPHILS # (AUTO) 0.2 K/uL (0-0.4); EOSINOPHILS % (AUTO) 3.1 % (0.0-4.0); HEMATOCRIT 33.1 % (36-52); HEMOGLOBIN 11.1 g/dL (12.0-18.0); LYMPHOCYTES # (AUTO) 1.2 K/uL (2.0-11.5); MEAN CORPUSCULAR HEMOGLOBIN 33 pg (27-31); MEAN CORPUSCULAR HGB CONC 34 g/dL (33-37); MEAN CORPUSCULAR VOLUME 98.1 fL (80-94); MONOCYTES # (AUTO) 0.4 K/uL (0.8-1.0); NEUTROPHILS # (AUTO) 5.2 K/uL (1.8-7.7); NEUTROPHILS % (AUTO) 73.1 % (42.2-75.2); PLATELET COUNT (AUTO) 258 K/uL (140-450); RED BLOOD CELL COUNT(AUTO) 3.37 MIL/uL (4.20-6.10); RED CELL DISTRIBUTION WIDTH 14.5 % (11.6-13.7); WHITE BLOOD COUNT (AUTO) 7.1 K/uL (4.8-10.8)
[2019-01-29] MEDS: CHLORHEXADINE GLUC 2% CLOTH TP SCH (13:00)
[2019-01-29] MEDS: GAUZE TP SCH (13:00)
[2019-01-29] MEDS: MUPIROCIN CA NASAL 2% 1GM TUBE NS SCH (13:00)
--- NOTE | 2019-01-29 13:00 | NUR ---
PT SLEEPING IN BED. VISIBLE CHEST RISE AND FALL.
[2019-01-29 13:17] LABS: ANION GAP 11.5 (8-16); CARBON DIOXIDE 27.1 mmol/L (21-32); POTASSIUM 3.6 mmol/L (3.5-5.1)
[2019-01-29 16:00] VITALS: BP 110/67
--- NOTE | 2019-01-29 17:30 | NUR ---
INSERTED NEW IV LINE TO LEFT HAND 22G AND BEGAN INFUSION OF NORMAL SALINE @100ML/HR
--- NOTE | 2019-01-29 18:36 | NUR ---
PATIENT IS EATING DINNER IN BED WITH MANAGER BALANCE, NO AGITATION AT THE MOMENT. WILL ENDORSE TO UX UI DESIGNER NURSE FOR CONTINUITY OF CARE.
--- NOTE | 2019-01-29 19:20 | NUR ---
RECEIVED REPORT FORM DAY SHIFT NURSE. PT AWAKE, CALM AND COOPERATIVE AT THIS TIME. NO S/S OF PAIN. NO S/S OF SOB. IV TO LEFT HAND #22G, NS AT 100 ML/HR INFUSING WELL. SAFETY PRECAUTION IN PLACE. SITTER AT BEDSIDE
[2019-01-29] MEDS: traZODone 50 MG TAB PO SCH (20:09)
--- NOTE | 2019-01-29 20:10 | NUR ---
PT TRYING TO GET OUT OF BED. DUE MEDS GIVEN. PT TOLERATED WELL. SITTER AT BEDSIDE.
--- NOTE | 2019-01-29 23:49 | NUR ---
PT VERY AGITATED, TRYING TO GET OUT OF BED, KICKING. HALDOL 1MG IM GIVEN.
[2019-01-29] MEDS ORDERED: HALOPERIDOL IM 5 MG/ML VIAL IM PRN (23:55)
[2019-01-30] VITALS: BP 102/53
[2019-01-30] MEDS ORDERED: diphenhydrAMINE 50 MG/ML VIAL IVP PRN
[2019-01-30] MEDS: LORazepam 2 MG/ML VIAL IM/IVP SCH ×6 (00:13→20:00)
[2019-01-30] MEDS: HYDRAGUARD CREAM TP SCH ×2 (00:14→12:26)
--- NOTE | 2019-01-30 01:17 | NUR ---
PT SLEEPING AT THIS TIME. NO S/S OF DISTRESS. SITTER AT BEDSIDE.
--- NOTE | 2019-01-30 03:00 | NUR ---
PT LYING IN BED, AWAKE AND CALM. NO S/S OF RESP DISTRESS. NO S/S OF PAIN.
--- NOTE | 2019-01-30 04:30 | NUR ---
PT SLEEPING. RESP EVEN AND UNLABORED. HELD ATIVAN DUE AT 0400.
[2019-01-30] MEDS: NACL 0.9% 1,000 ML IV SCH ×2 (05:02→14:24)
[2019-01-30] MEDS ORDERED: HALOPERIDOL IM 5 MG/ML VIAL IM PRN (05:45)
--- NOTE | 2019-01-30 05:50 | NUR ---
PT WAS CLEANSED AND CHANGED. PT CALM AND COOPERATIVE AT THIS TIME. NO S/S OF DISTRESS NOTED.
[2019-01-30] MEDS: LEVOTHYROXINE 0.025 MG TAB PO SCH (06:24)
--- NOTE | 2019-01-30 06:28 | NUR ---
DUE MED GIVEN WITH APPLE SAUCE. PT TOLERATED WELL.
[2019-01-30 07:11] LABS: BASOPHILS # (AUTO) 0.1 K/uL (0.00-0.22); BASOPHILS % (AUTO) 0.8 % (0.0-2.0); EOSINOPHILS # (AUTO) 0.2 K/uL (0-0.4); EOSINOPHILS % (AUTO) 2.7 % (0.0-4.0); HEMATOCRIT 37.5 % (36-52); HEMOGLOBIN 12.2 g/dL (12.0-18.0); LYMPHOCYTES # (AUTO) 1.3 K/uL (2.0-11.5); LYMPHOCYTES % (AUTO) 16.2 % (20.5-51.1); MEAN CORPUSCULAR HEMOGLOBIN 32 pg (27-31); MEAN CORPUSCULAR HGB CONC 33 g/dL (33-37); MEAN CORPUSCULAR VOLUME 99.3 fL (80-94); MONOCYTES # (AUTO) 0.4 K/uL (0.8-1.0); MONOCYTES % (AUTO) 5.5 % (1.7-9.3); NEUTROPHILS % (AUTO) 74.8 % (42.2-75.2); PLATELET COUNT (AUTO) 296 K/uL (140-450); RED BLOOD CELL COUNT(AUTO) 3.77 MIL/uL (4.20-6.10); RED CELL DISTRIBUTION WIDTH 15.1 % (11.6-13.7)
--- NOTE | 2019-01-30 07:15 | NUR ---
ENDORSED PT TO DAY SHIFT NURSE. PT IN STABLE CONDITION.
--- NOTE | 2019-01-30 07:17 | NUR ---
RECEIVED REPORT FROM NIGHT RN. PT RESTING IN BED. AAOX1, NO S/S OF ACUTE DISTRESS. IV SITE PATENT AND INTACT. CALL LIGHT WITHIN REACH. SITTER AT BEDSIDE. WILL CONTINUE TO MONITOR.
[2019-01-30 07:18] LABS: ANION GAP 11.7 (8-16); CARBON DIOXIDE 28.8 mmol/L (21-32); CREATININE 1.1 mg/dL (0.7-1.3); POTASSIUM 4.5 mmol/L (3.5-5.1)
[2019-01-30 07:34] LABS: MAGNESIUM 1.6 mg/dL (1.8-2.4); PHOSPHORUS 3.3 mg/dL (2.5-4.9)
[2019-01-30 08:00] VITALS: BP 109/76
[2019-01-30] MEDS: risperiDONE 1 MG TAB PO SCH ×3 (08:22→16:32)
[2019-01-30] MEDS: SENNA 8.6 MG TAB PO SCH ×3 (08:22→16:32)
[2019-01-30] MEDS: DOCUSATE SODIUM 100 MG GELCAP PO SCH (08:22)
[2019-01-30] MEDS: POLYETHYLENE GLYCOL 17 GM/PKT PO SCH ×2 (08:22→21:10)
[2019-01-30] MEDS: DIVALPROEX SPRINKLES 125 MG CAPDR PO SCH ×3 (08:22→16:31)
[2019-01-30] MEDS: QUEtiapine FUMARATE 100 MG TAB PO SCH ×3 (08:23→16:32)
[2019-01-30] MEDS: SODIUM CHLORIDE 0.65% 45 ML BTL NS SCH ×2 (08:24→21:36)
[2019-01-30] MEDS: MORPHINE SULFATE 2 MG/ML SYR IVP SCH ×4 (08:30→16:36)
--- NOTE | 2019-01-30 10:00 | NUR ---
BRANDON FROM [facility] VISITED PATIENT AND STATED PT HAS TO BE RESTRAINT FREE FOR 24 HRS AND WILL COME TO EVALUATE HIM
--- NOTE | 2019-01-30 11:24 | NUR ---
All restraints removed. Pt resting in bed with sitter at bedside.
--- NOTE | 2019-01-30 12:11 | NUR ---
PATIENT RESTING IN BED. NO S/S OF ACUTE DISTRESS. FLACC-0. SITTER AT BEDSIDE. WILL CONTINUE TO MONITOR.
[2019-01-30] MEDS: GAUZE TP SCH ×2 (12:25→13:00)
[2019-01-30] MEDS: CHLORHEXADINE GLUC 2% CLOTH TP SCH (12:25)
[2019-01-30] MEDS: MUPIROCIN CA NASAL 2% 1GM TUBE NS SCH (12:26)
--- NOTE | 2019-01-30 12:47 | NUR ---
MORPHINE NOT GIVEN DUE TO PATIENT'S FLACC-0. PT CALM AND RESTING
--- NOTE | 2019-01-30 13:00 | NUR ---
RECEIVED A CALL FROM BRANDON [facility] STATED THEY ARE UNABLE TO TAKE PATIENT BECAUSE THEY WON'T BE ABLE TO PROVIDED 1:1 SITTER
--- NOTE | 2019-01-30 13:30 | NUR ---
Dr. Ellis call back with orders: Remove all pepper to abd area.Worton surgical scar area with betadine solution qd and CONSULTING SENIOR PRACTICE DIRECTOR. Abdominal pepper removed no s/s of wound dehiscence, healing ridge wound skin redness improve from last visit, dry and intact.
--- NOTE | 2019-01-30 14:49 | NUR ---
CONTACTED TOÑO GAGE (INTAKE) AT [phone] REGARDING INQUIRY SENT ON WEDNESDAY, NO ANSWER. LEFT MESSAGE. Addendum: 01/30/19 at 1456 by Zeinab Renee CM Sw contacted [facility] to inform them patient's restrains were dc today at 11:30am. Ana will come to re-assess the patient on WednesdayJan 31. Gisele Renee [facility] Hard Candy Batch Mixer, CM Ext [phone]
--- NOTE | 2019-01-30 14:58 | NUR ---
CONTACTED NEGRA REYES ([facility]) AT [phone], LINE IS TEMPORARILY DISCONNECTED. TRIED TO CONTACT SEVERAL TIMES, STILL UNABLE TO CONNECT. Addendum: 01/30/19 at 1521 by Heather Mtz CM CONTACTED JONATHAN YODER AT [phone], VERIFIED WITH HIM CONTACT INFO OF NEGRA REYES, STREET LIGHT SERVICER HELPER AT [facility]. HE STATED THE NUMBER IS [phone]. CONTACTED THE PROVIDED NUMBER, NO ANSWER. LEFT MESSAGE. RECEIVED A CALL BACK FROM NEGRA, INFORMED HER THAT THIS IS A HARD PLACEMENT. SHE STATED THAT SHE WILL HAVE A MEETING WITH HER DIRECTOR TOMORROW REGARDING THE PLAN IF THERE WILL BE NO ACCEPTING GROUP HOME. I ALSO UPDATED HER REGARDING PATIENT'S SURGICAL WOUND. I INFORMED HER THAT I WILL KEEP UPDATING HER IS IN ANY CASE A FACILITY WILL ACCEPT THE PATIENT.
[2019-01-30 16:00] VITALS: BP 105/65
--- NOTE | 2019-01-30 16:10 | NUR ---
PT RESTING IN BED. NO S/S OF ACUTE DISTRESS. FLACC-0 CALL LIGHT WITHIN REACH. SAFETY MEASURES ENSURED. WILL CONTINUE TO MONITOR.
--- NOTE | 2019-01-30 16:11 | NUR ---
PATIENT RESTING IN BED. NO S/S OF ACUTE DISTRESS. SITTER AT BEDSIDE. WILL CONTINUE TO MONITOR.
--- NOTE | 2019-01-30 19:10 | NUR ---
RECEIVED REPORT AT BEDSIDE FORM ARPIT VU FOR CONTINUITY OF CARE, PT LYING BED WITH ALL FALLS AND CONTACT PRECAUTIONS IN PLACE. PT CURRENTLY IS SLEEPING SOUNDLY, HE HAS A RIGHT HAND 22G IV SITE INTACT AND ASYMPTOMATIC RUNNING NORMAL SALINE AT 100MLS/HR. LUNGS CLEAR AND BOWEL SOUNDS PRESENT. DRESSING ON ABDOMEN AREA INTACT WITH NO DRAINAGE NOTED. SITTER AT BEDSIDE.
--- NOTE | 2019-01-30 20:00 | NUR ---
DR. MCCAIN AT BEDSIDE EVALUATING PT. PT CALM SLEEPING BUT AROUSABLE TO LIGHT TOUCH. ALL FALLS AND CONTACT PRECAUTIONS IN PLACE, SITTER AT BEDSIDE.
[2019-01-30] MEDS: traZODone 50 MG TAB PO SCH (21:10)
--- NOTE | 2019-01-30 21:20 | NUR ---
PT TURNED, CHANGED AND REPOSITIONED. PT IS AWAKE AND TOOK ALL DUE MEDS EXCEPT ATIVAN IV DUE TO PT HAVING A CALM AND SLEEPY DEMEANOR. ALL FALLS AND CONTACT PRECAUTIONS IN PLACE AND 1:1 SITTER AT BEDSIDE.
--- NOTE | 2019-01-30 22:00 | NUR ---
PT TURNED AND REPOSITIONED ALL FALL, ASPIRATION AND CONTACT PRECAUTIONS IN PLACE. 1 :1 SITTER AT BEDSIDE.
--- NOTE | 2019-01-30 22:28 | NUR ---
PT IV SITE ON RIGHT WRIST NOTED WITH SOME REDNESS AROUND THE SITE, THE SITE WAS DISCONTINUED AND A NEW SITE PROVIDED A 24G ON THE LEFT HAND INSERTED, X1 ATTEMPTED. PT TOLERATED PROCEDURE WELL. ALL FALLS, ASPIRATION AND CONTACT PRECAUTIONS IN PLACE.
--- NOTE | 2019-01-30 23:47 | NUR ---
PT TURNED AND REPOSITIONED IN BED NO BEHAVIORS NOTED. ALL FALLS, CONTACT AND ASPIRATION PRECAUTIONS IN PLACE, 1:1 SITTER AT BEDSIDE.
[2019-01-31] VITALS: BP 93/57
--- NOTE | 2019-01-31 00:30 | NUR ---
PT IN BED HE IS SLEEPING BUT IS AROUSABLE TO NAME AND LIGHT TOUCH. ALL FALL, ASPIRATION AND CONTACT PRECAUTIONS IN PLACE AT THIS TIME. PT WAS TURNED AND REPOSITIONED. V/S FOLLOWS T 97.3 P 62 R 18 B/P 93/57 02 95% ON ROOM AIR. PT HAS NO S/S OF PAIN OR DISTRESS NOTED. NEW FLUID BAG OF NS REPLACED AND IV SITE ON RIGHT HAND INTACT WITH NO S/S OF INFILTRATION. NORMAL SALINE HUNG AND IS RUNNING AT 100MLS/HR ORDERED. 1:1 SITTER AT BEDSIDE.
--- NOTE | 2019-01-31 00:40 | NUR ---
ATIVAN NOT GIVEN DUE TO PT HAVING NO BEHAVIOR ISSUES AND BLOOD PRESSURE LOW.
[2019-01-31] MEDS: NACL 0.9% 1,000 ML IV SCH ×2 (01:54→10:06)
[2019-01-31] MEDS: HYDRAGUARD CREAM TP SCH ×2 (01:55→13:52)
--- NOTE | 2019-01-31 02:40 | NUR ---
PT HAS NOT YET VOIDED, PT ABDOMEN FELT FIRM, BLADDER SCANNER DONE, PT HAS AT LEAST 1 LITER OF URINE IN BLADDER. GIVEN COOL CLOTH TO GENITAL AREA, PT STILL DINT VOID, SPOKE WITH MD RODRIGUEZ WHOM ORDERED A STRAIGHT CATHETERIZATION. STRAIGHT CATH DONE STERILE TECHNIQUE OBSERVED, STRAIGTH CATH PRODUCED 1500MLS OF HOLLY YELLOW URINE. PROCEDURE TOLERATED WELL.
[2019-01-31] MEDS: LORazepam 2 MG/ML VIAL IM/IVP SCH ×3 (04:00→08:22)
--- NOTE | 2019-01-31 04:30 | NUR ---
PT IN BED NO S/S OF PAIN OR DISTRESS NOTED, PT SLEEPING BUT AROUSABLE TO NAME AND LIGHT TOUCH. PT AGAIN REPOSITONED IN BED . ALL FALLS, ASPIRATION AND CONTACT PRECAUTIONS IN PLACE. 1:1 SITTER AT BEDSIDE.
[2019-01-31 06:05] LABS: ANION GAP 12.5 (8-16); CARBON DIOXIDE 28.5 mmol/L (21-32); CREATININE 1.1 mg/dL (0.7-1.3)
[2019-01-31] MEDS: LEVOTHYROXINE 0.025 MG TAB PO SCH (06:19)
--- NOTE | 2019-01-31 06:33 | NUR ---
PT GIVEN SYNTHROID AND PRN COLACE TABS FOR CONSTIPATION. ALL PRECAUTIONS IN PLACE NO S/S OF PAIN OR DISTRESS NOTED.
[2019-01-31 06:35] LABS: BASOPHILS # (AUTO) 0.1 K/uL (0.00-0.22); BASOPHILS % (AUTO) 0.6 % (0.0-2.0); EOSINOPHILS # (AUTO) 0.1 K/uL (0-0.4); EOSINOPHILS % (AUTO) 1.2 % (0.0-4.0); HEMATOCRIT 41.2 % (36-52); HEMOGLOBIN 13.5 g/dL (12.0-18.0); LYMPHOCYTES % (AUTO) 10.6 % (20.5-51.1); MEAN CORPUSCULAR HEMOGLOBIN 32 pg (27-31); MEAN CORPUSCULAR HGB CONC 33 g/dL (33-37); MEAN CORPUSCULAR VOLUME 99.3 fL (80-94); MONOCYTES # (AUTO) 0.4 K/uL (0.8-1.0); MONOCYTES % (AUTO) 3.8 % (1.7-9.3); NEUTROPHILS # (AUTO) 8.3 K/uL (1.8-7.7); NEUTROPHILS % (AUTO) 83.8 % (42.2-75.2); PLATELET COUNT (AUTO) 302 K/uL (140-450); RED BLOOD CELL COUNT(AUTO) 4.15 MIL/uL (4.20-6.10); RED CELL DISTRIBUTION WIDTH 15.1 % (11.6-13.7); WHITE BLOOD COUNT (AUTO) 9.9 K/uL (4.8-10.8)
--- NOTE | 2019-01-31 07:06 | NUR ---
PT IN BED SLEEPING ALL FALLS, ASPIRATION AND CONTACT PRECAUTIONS IN PLACE. PT IN STABLE CONDITION NO S/S OF PAIN OR DISTRESS NOTED, WILL ENDORSE PLAN OF CARE TO RELIEVING NURSE.
--- NOTE | 2019-01-31 07:07 | NUR ---
RECEIVED BEDSIDE REPORT FROM TICKET DISPENSER CHANGER NURSE. PATIENT IS AWAKE, ALERT AND ORIENTEDX1. NO SIGNS OF DISTRESS ON RA. AMBULATE W ASSIST. FALL RISK PROTOCOL IN PLACE. PATIENT HAS HEALED SURGICAL WOUND, S/P LAP EXPLOR. L HAND 24G INFUSING NS AT 100. CLEAN, DRY AND INTACT. MRSA NARES, CONTACT PRECAUTIONS IN PLACE. BED IN LOW POSITION. 1:1 SITTER AT BEDSIDE
[2019-01-31 08:00] VITALS: BP 159/115
[2019-01-31] MEDS: SENNA 8.6 MG TAB PO SCH ×3 (08:21→18:00)
[2019-01-31] MEDS: QUEtiapine FUMARATE 100 MG TAB PO SCH ×2 (08:21→13:51)
[2019-01-31] MEDS: DOCUSATE SODIUM 100 MG GELCAP PO SCH (08:21)
[2019-01-31] MEDS: risperiDONE 1 MG TAB PO SCH ×3 (08:21→16:30)
[2019-01-31] MEDS: DIVALPROEX SPRINKLES 125 MG CAPDR PO SCH ×3 (08:22→16:29)
[2019-01-31] MEDS: POLYETHYLENE GLYCOL 17 GM/PKT PO SCH ×2 (08:22→21:32)
[2019-01-31] MEDS: SODIUM CHLORIDE 0.65% 45 ML BTL NS SCH ×2 (08:33→21:26)
--- NOTE | 2019-01-31 08:34 | NUR ---
ADMINISTERED MEDS. PATIENT TOLERATED WELL. EDUCATED PATIENT. WILL CONTINUE TO MONITOR THE PATIENT. PATIENT IS BEING FED BY MIRIAM
[2019-01-31] MEDS: MORPHINE SULFATE 2 MG/ML SYR IVP SCH (09:00)
--- NOTE | 2019-01-31 09:16 | NUR ---
PATIENT IS TOO DROWSY AT THIS TIME. HELD MORPHINE. PATIENT HAD ATIVAN EARLIER
--- NOTE | 2019-01-31 11:48 | NUR ---
PATIENT LAYING IN BED SLEEPING. NO SIGNS OF DISTRESS. 1:1 SITTER AT BEDSIDE
[2019-01-31 11:59] VITALS: BP 97/52
[2019-01-31] MEDS ORDERED: MORPHINE SULFATE ORAL SOLN 2 MG/ML UDC PO SCH ×2 (12:00→13:00)
--- NOTE | 2019-01-31 12:13 | NUR ---
CONTACTED NEGRA [facility] AT [phone], NO ANSWER. LEFT MESSAGE REGARDING PLACEMENT. CM WILL FOLLOW UP.
--- NOTE | 2019-01-31 12:22 | NUR ---
PATIENT IS SLEEPING, EASILY AROUSABLE
[2019-01-31] MEDS ORDERED: LORazepam 1 MG TAB PO SCH ×2 (12:30→16:00)
--- NOTE | 2019-01-31 12:35 | NUR ---
PATIENT IS DROWSY TOLD DR COLE I WAS GOING TO HOLD THE ATIVAN, HE SAID OK. WILL CONTINUE TO MONITOR
[2019-01-31] MEDS ORDERED: MAG SULF 2000 MG/WATER PREMIX 50 ML IV SCH (13:00)
[2019-01-31] MEDS ORDERED: LORazepam 1 MG TAB PO PRN ×2 (13:10→16:20)
[2019-01-31] MEDS ORDERED: MORPHINE SULFATE ORAL SOLN 2 MG/ML UDC PO PRN (13:10)
[2019-01-31] MEDS: MUPIROCIN CA NASAL 2% 1GM TUBE NS SCH (13:51)
[2019-01-31] MEDS: GAUZE TP SCH ×2 (13:52)
[2019-01-31] MEDS: CHLORHEXADINE GLUC 2% CLOTH TP SCH (13:52)
--- NOTE | 2019-01-31 14:03 | NUR ---
DR COLE AWARE THAT BLADDER SCAN DONE 600 INPUT. HE SAID TO DO STRAIGHT CATH NOW
[2019-01-31] MEDS ORDERED: TAMSULOSIN 0.4 MG CAP PO SCH (14:30)
--- NOTE | 2019-01-31 14:31 | NUR ---
01/31/19 RD FOLLOW UP COMPLETED PLEASE REFER TO NUTRITION ASSESSMENT UNDER CARE ACTIVITY FOR ESTIMATED NUTRITIONAL NEEDS. 1. CONTINUE PUREE DIET WITH NECTAR THICK LIQUIDS TOLERATED 2. ENCOURAGE PO INTAKE AND CONTINUE PROVIDING FEEDING ASSISTANCE 3. RD TO FOLLOW-UP 2-3 DAYS, HIGH RISK COLETTE HARTLEY, RD
--- NOTE | 2019-01-31 14:33 | NUR ---
STRAIGHT CATH DONE 700 OUT
--- NOTE | 2019-01-31 15:48 | NUR ---
ADMINISTERED MEDS. PATIENT TOLERATED WELL
[2019-01-31 16:00] VITALS: BP 90/51
--- NOTE | 2019-01-31 16:30 | NUR ---
DR [place] SAID OK TO HOLD PSYCH MEDS. PATIENT TOO DROWSY AT THIS TIME. WITH LOW B/P
--- NOTE | 2019-01-31 17:43 | NUR ---
PATIENT IS SLEEPING. WILL CONTINUE TO MONITOR
--- NOTE | 2019-01-31 19:25 | NUR ---
GAVE BEDSIDE REPORT TO TRANSPLANT WORKER NURSE. PATIENT ENDORSED IN STABLE CONDITION
--- NOTE | 2019-01-31 19:25 | NUR ---
REPORT RECEIVED FORM JAY RN DAYSHIFT NURSE AT BEDSIDE FOR CONTINUITY OF CARE, PT IN STABLE CONDITION. ALL FALLS, ASPIRATION AND CONTACT PRECAUTIONS IN PLACE, PT IS SLEEPING BUT AROUSABLE TO NAME AND LIGHT TOUCH, NO S/S OF PAIN OR DISTRESS NOTED. SITTER AT BEDSIDE.
--- NOTE | 2019-01-31 21:00 | NUR ---
PT IN BED, GIVEN ALL DUE MEDS OF NASAL SPRAY,TRAZODONE AND MIRALAX V/S FOLLOWS T 97.2 P 62 R 20 B/P 95/67 02 90% ON ROOM AIR. ALL FALLS, ASPIRATION AND CONTACT PRECAUTIONS IN PLACE. 1:1 SITTER AT BEDSIDE.
[2019-01-31] MEDS: traZODone 50 MG TAB PO SCH (21:27)
--- NOTE | 2019-01-31 23:45 | NUR ---
PT IN BED ALL FALLS AND ASPIRATION AND CONTACT PRECAUTIONS IN PLACE. V/S FOLLOWS T 97.5 P 56 R 20 B/P 92/57 02 90% ON ROOM AIR. 1 : 1 SITTER AT BEDSIDE.
[2019-02-01] VITALS: BP 92/57
[2019-02-01] MEDS ORDERED: BISACODYL 10 MG SUPP RC SCH (01:00)
--- NOTE | 2019-02-01 01:00 | NUR ---
PT IN BED WOUND CARE PROVIDED, AREA CLEANED AND IODINE APPLIED TO SITE. AND SITE LEFT OPEN TO AIR. WOUND SITE LOOKED MORE RED AROUND THE EDGES SINCE YESTERDAY, NO DRAINAGE OR ODOR AT SURGICAL SCAR SITE. MD RAY MADE AWARE OF SITE BEING MORE KENNY. MD INSPECTED SITE AND DETERMINED THAT THERE WAS NO SWELLING AT SITE AND SHE WILL ENDORSE TO AM PHYSICIAN S IF THEY WANT TO ODER ABT. ALSO MADE AWARE THAT PT HAD NOT HAD A BM SINCE 01/28. ORDERED X1 DUCOLAX SUPPOSITORY. SUPPOSITORY ORDERED AND ADMINISTERED. STOOL FELT IN COLON. HYPOGUARD APPLIED TO KENNY AREA OF SACROCOCCYX. PT ALSO HAD A BLADDER SCAN DONE DUE TO VOIDING ONLY VERY LITTLE THIS SHIFT. RESULTS WERE LESS THAN 200MLS AND LOWE4R ABDOMEN WAS NOT FIRM OR DISTENDED. WILL CONTINUE TO MONITOR FOR BOWEL AND BLADDER MOVEMENT.
[2019-02-01] MEDS: HYDRAGUARD CREAM TP SCH ×2 (01:02→18:46)
[2019-02-01] MEDS: LEVOTHYROXINE 0.025 MG TAB PO SCH (06:14)
[2019-02-01 06:47] LABS: ANION GAP 11.9 (8-16); CARBON DIOXIDE 27.1 mmol/L (21-32); CREATININE 1.1 mg/dL (0.7-1.3); TOTAL BILIRUBIN 0.5 mg/dL (0.0-1.0)
[2019-02-01 06:55] LABS: MAGNESIUM 2.1 mg/dL (1.8-2.4)
[2019-02-01 07:11] LABS: BASOPHILS % (AUTO) 0.3 % (0.0-2.0); EOSINOPHILS # (AUTO) 0.2 K/uL (0-0.4); EOSINOPHILS % (AUTO) 1.2 % (0.0-4.0); HEMATOCRIT 37.4 % (36-52); HEMOGLOBIN 12.1 g/dL (12.0-18.0); LYMPHOCYTES # (AUTO) 0.9 K/uL (2.0-11.5); LYMPHOCYTES % (AUTO) 7.1 % (20.5-51.1); MEAN CORPUSCULAR HEMOGLOBIN 32 pg (27-31); MEAN CORPUSCULAR HGB CONC 32 g/dL (33-37); MEAN CORPUSCULAR VOLUME 99.9 fL (80-94); MONOCYTES # (AUTO) 0.5 K/uL (0.8-1.0); NEUTROPHILS % (AUTO) 87.4 % (42.2-75.2); PLATELET COUNT (AUTO) 212 K/uL (140-450); RED BLOOD CELL COUNT(AUTO) 3.75 MIL/uL (4.20-6.10); RED CELL DISTRIBUTION WIDTH 15.3 % (11.6-13.7); WHITE BLOOD COUNT (AUTO) 12.5 K/uL (4.8-10.8)
[2019-02-01 08:00] VITALS: BP 125/65
[2019-02-01] MEDS: SODIUM CHLORIDE 0.65% 45 ML BTL NS SCH ×2 (09:00→20:30)
[2019-02-01] MEDS: POLYETHYLENE GLYCOL 17 GM/PKT PO SCH ×2 (09:00→20:29)
[2019-02-01] MEDS: SENNA 8.6 MG TAB PO SCH ×3 (11:15→18:09)
[2019-02-01] MEDS: DIVALPROEX SPRINKLES 125 MG CAPDR PO SCH ×3 (11:15→18:09)
[2019-02-01] MEDS: TAMSULOSIN 0.4 MG CAP PO SCH (11:23)
[2019-02-01] MEDS: DOCUSATE SODIUM 100 MG GELCAP PO SCH (11:24)
[2019-02-01] MEDS: risperiDONE 1 MG TAB PO SCH ×3 (11:26→18:09)
--- NOTE | 2019-02-01 16:14 | NUR ---
CALLED NEGRA CRAWFORD NOTIFIED HER D/C HAS BEEN HELD BECAUSE OF XRAY RESULT LEFT LOWER LOBE PNA
[2019-02-01] MEDS: GAUZE TP SCH ×2 (18:00)
[2019-02-01] MEDS: PIPERACILLIN/TAZOBACTAM 3.375 GM in DEXTROSE 5% 50 ML IV SCH ×2 (18:43→23:13)
--- NOTE | 2019-02-01 20:00 | NUR ---
RECEIVED PT FROM AM SHIFT. PT IS AWAKE, ALERT X1 AND NON VERBAL. PT OPEN HIS EYES SPONTANEOUSLY. NO S/S OF RESP.DISTRESS, NO SOB NOTED. PT ON ROOM AIR WITH SPO2 96%. NO AGITATION EPISODE AT THIS TIME. PT CONTINUE ON SITTER.SKIN WARM TO TOUCH.ABD DISTENDED WITH DRESSING TO MID ABD D/T S/P EXPLORATOMY LAP,IV SITE TO RFA NO 22 INTACT WELL. PT IS INCONTINENT BOWEL AND BLADDER. KEPT PT CLEAN AND DRY. CALL LIGHT IN REACH. V/S T 98.7 BP 96/58 HR 100,R 16,SPO2 96%.
[2019-02-01] MEDS: traZODone 50 MG TAB PO SCH (20:28)
--- NOTE | 2019-02-01 21:30 | NUR ---
NIGHT MED GIVEN PT TOLERATING WELL. MEDS TAKE PO AND ABLE TO TAKE 100 Addendum: 02/01/19 at 2203 by Carina Lopez RN ABLE TO TAKE 100 CC WATER.
--- NOTE | 2019-02-01 22:08 | NUR ---
MADE AWARE THAT SURGICAL INCISION EDGES REDNESS AND SMALL AMOUNT OF DRAINAGE NOTED FROM SURGICAL SITE. AWARE THAT PT ALREADY ON IV ABT ZOSYN ORDER. NO NEW ORDER AT THIS TIME.
[2019-02-02] VITALS: BP 100/60
[2019-02-02] MEDS: HYDRAGUARD CREAM TP SCH ×2 (01:00→13:19)
--- NOTE | 2019-02-02 01:00 | NUR ---
MIDNIGHT IV ZOSYN WAS GIVEN, PT LOOK COMFORTABLE SLEEP GOOD.
--- NOTE | 2019-02-02 03:00 | NUR ---
REPOSITION PT FOR COMFORT. PT SLEEP WELL, NO AGITATION EPISODE.
--- NOTE | 2019-02-02 04:45 | NUR ---
AM CARE GIVEN. BLOOD DRAWN FOR CBC,BMP,MAG AND PHOS.
--- NOTE | 2019-02-02 05:45 | NUR ---
AM MED GIVEN TOLERATED WELL. IV WAS OUT AND INSERT NEW SITE TO RIGHT AC NO 24.WITH GOOD BLOOD RETURN NOTED.
[2019-02-02] MEDS: PIPERACILLIN/TAZOBACTAM 3.375 GM in DEXTROSE 5% 50 ML IV SCH ×4 (05:51→23:55)
[2019-02-02] MEDS: LEVOTHYROXINE 0.025 MG TAB PO SCH (05:51)
--- NOTE | 2019-02-02 06:14 | NUR ---
,MADE AWARE THAT PT HAS NO URINATE AND ,STRAIGHT CATH DONE WITH 400 CC OF YELLOW URINE NOTED. ALSO AWARE THAT INCISION SITE REDNESS WITH SMALL AMOUNT PUS.
[2019-02-02 06:15] LABS: ANION GAP 9.4 (8-16); CARBON DIOXIDE 26.8 mmol/L (21-32); CREATININE 1.1 mg/dL (0.7-1.3); POTASSIUM 5.2 mmol/L (3.5-5.1)
[2019-02-02 06:21] LABS: MAGNESIUM 1.7 mg/dL (1.8-2.4); PHOSPHORUS 2.6 mg/dL (2.5-4.9)
--- NOTE | 2019-02-02 06:45 | NUR ---
POTASSIUM 5.2 DR COLE MADE AWARE.
[2019-02-02 06:47] LABS: BASOPHILS # (AUTO) 0.1 K/uL (0.00-0.22); BASOPHILS % (AUTO) 1.3 % (0.0-2.0); EOSINOPHILS # (AUTO) 0.3 K/uL (0-0.4); EOSINOPHILS % (AUTO) 2.6 % (0.0-4.0); HEMATOCRIT 34.8 % (36-52); HEMOGLOBIN 11.4 g/dL (12.0-18.0); LYMPHOCYTES # (AUTO) 1.1 K/uL (2.0-11.5); LYMPHOCYTES % (AUTO) 9.6 % (20.5-51.1); MEAN CORPUSCULAR HEMOGLOBIN 33 pg (27-31); MEAN CORPUSCULAR HGB CONC 33 g/dL (33-37); MEAN CORPUSCULAR VOLUME 99.7 fL (80-94); MONOCYTES # (AUTO) 0.6 K/uL (0.8-1.0); MONOCYTES % (AUTO) 5.4 % (1.7-9.3); NEUTROPHILS # (AUTO) 8.9 K/uL (1.8-7.7); NEUTROPHILS % (AUTO) 81.1 % (42.2-75.2); PLATELET COUNT (AUTO) 187 K/uL (140-450); RED BLOOD CELL COUNT(AUTO) 3.49 MIL/uL (4.20-6.10); RED CELL DISTRIBUTION WIDTH 15.5 % (11.6-13.7)
--- NOTE | 2019-02-02 07:16 | NUR ---
REPORT GIVEN TO AM SHIFT. PT IS SLEEPING AT THIS TIME , NO EPISODE AGITATION AT NOC SHIFT.
[2019-02-02 08:00] VITALS: BP 110/64
[2019-02-02] MEDS: TAMSULOSIN 0.4 MG CAP PO SCH (09:34)
[2019-02-02] MEDS: DOCUSATE SODIUM 100 MG GELCAP PO SCH (09:35)
[2019-02-02] MEDS: LACTOBACILLUS RHAMNOSUS GG 1 EACH CAP PO SCH (09:35)
[2019-02-02] MEDS: DIVALPROEX SPRINKLES 125 MG CAPDR PO SCH ×3 (09:36→17:18)
[2019-02-02] MEDS: POLYETHYLENE GLYCOL 17 GM/PKT PO SCH ×2 (09:36→20:43)
[2019-02-02] MEDS: risperiDONE 1 MG TAB PO SCH ×3 (09:37→17:19)
[2019-02-02] MEDS: SENNA 8.6 MG TAB PO SCH ×3 (09:37→17:19)
--- NOTE | 2019-02-02 09:48 | NUR ---
Bob caregiver came in to visit pt, updated him of POC. Verbalized understanding.
[2019-02-02] MEDS ORDERED: DOCUSATE 100 MG/10 ML UDC GT SCH (10:20)
--- NOTE | 2019-02-02 10:53 | NUR ---
Pt is ambulating in hallway with assistance. Tolerated well. Pt is now sitting in wheel chair. Sitter by patient.
[2019-02-02] MEDS ORDERED: MINERAL OIL 135 ML ENEM RC PRN (11:22)
[2019-02-02] MEDS: SODIUM CHLORIDE 0.65% 45 ML BTL NS SCH ×2 (11:52→20:51)
[2019-02-02] MEDS ORDERED: MAGNESIUM OXIDE 400 MG TAB PO SCH (12:00)
--- NOTE | 2019-02-02 12:00 | NUR ---
Inserted IV 22G to L AC. [id number]
[2019-02-02] MEDS: LORazepam 1 MG TAB PO PRN (12:11)
--- NOTE | 2019-02-02 12:14 | NUR ---
Ativan given 0.5 mg PO for agitation. Sitter by bedside.
--- NOTE | 2019-02-02 12:15 | NUR ---
Pt has an order for F/C. Bladder scan noted with 200 ml. Order to F/C was taken up with order due to pt agitation. Requested Dr to order a [address] denied request for restraint. Requested to continue to monitor patient. F/C not inserted.
--- NOTE | 2019-02-02 12:19 | NUR ---
Pt had an urine output. Bladder scan noted with 0 ml in bladder. F/C not inserted. Pt resting in bed. Comfort measures. Call light within reach.
--- NOTE | 2019-02-02 13:00 | NUR ---
notified of pt's incontinent episode. Bladder scan at 0 ml. requested to hold F/C.
[2019-02-02] MEDS: GAUZE TP SCH ×2 (13:18)
--- NOTE | 2019-02-02 13:43 | NUR ---
02/02/19 RD FOLLOW UP COMPLETED PLEASE REFER TO NUTRITION ASSESSMENT UNDER CARE ACTIVITY FOR ESTIMATED NUTRITIONAL NEEDS. 1. CONTINUE PUREE DIET WITH NECTAR THICK LIQUIDS TOLERATED 2. ENCOURAGE PO INTAKE AND CONTINUE PROVIDING FEEDING ASSISTANCE 3. RD TO FOLLOW-UP 3-5 DAYS, MODERATE RISK COLETTE HARTLEY, RD
--- NOTE | 2019-02-02 14:00 | NUR ---
Dr Ellis was at pt's bed side. Assessment on abdominal wound. Will do an I&D on pt tomorrow at OR. Pt to be on NPO after midnight. Per Dr Lamb he will contact family for consent. Addendum: 02/02/19 at 1516 by Tera Novak RN Typo: Dr Feng not Dr Lamb.
--- NOTE | 2019-02-02 14:45 | NUR ---
Pt resting in bed. No signs of distress. Sitter by pt. Call light within reach.
--- NOTE | 2019-02-02 15:56 | NUR ---
Pt resting in bed. No signs of distress. Sitter by pt. Call light within reach.
[2019-02-02 16:00] VITALS: BP 99/55
--- NOTE | 2019-02-02 16:07 | NUR ---
Informed consent obtained by Dr Feng from Rosalba Geoff via telephone, witnessed by Dr. Sutton. Consent forms signed by both doctors & place in pt's chart.
--- NOTE | 2019-02-02 17:00 | NUR ---
As per Dr Feng, bladder scan done on pt. 200 ml retained in bladder. Per Dr Feng continue to hold F/C insertion.
--- NOTE | 2019-02-02 17:45 | NUR ---
Pt chucks soaked with urine. No bladder distention. Dr Feng notified. No new orders.
--- NOTE | 2019-02-02 17:52 | NUR ---
Pt resting in bed. No signs of distress. Sitter by pt. Call light within reach.
--- NOTE | 2019-02-02 19:30 | NUR ---
REPORT TAKEN FROM AM RN. PT. AWAKE AND ALERT. MENTALLY CHALLENGED. SITTER IN PLACE. NEEDS WILL BE ANTICIPATED AND WILL BE MET. PT. DX. AGITATION FROM SNF. NPO DIET ORDERED.
--- NOTE | 2019-02-02 19:31 | NUR ---
Report given to network pricing consultant nurse. Pt is resting in bed. No signs of distress. Sitter by bedside. Call light within reach.
[2019-02-02] MEDS: traZODone 50 MG TAB PO SCH (20:44)
--- NOTE | 2019-02-02 20:49 | NUR ---
PT. AWAKE AND ALERT AT THIS TIME. WITH SITTER IN PLACE. TOLERATED P.O. MEDICATION. ON ISOLATION PRECAUTIONS. NEEDS WILL BE ANTICIPATED AND WILL BE MET. TOTAL CARE.
[2019-02-03 00:54] VITALS: BP 98/58
--- NOTE | 2019-02-03 01:02 | NUR ---
SLEEPING. SITTER WATCHING OVER PT.
[2019-02-03] MEDS: HYDRAGUARD CREAM TP SCH ×2 (01:08→12:10)
--- NOTE | 2019-02-03 02:30 | NUR ---
PT. NEEDS ANTICIPATED. WITH SITTER IN PLACE. BEEN NPO SINCE MIDNIGHT ORDERED. WITH IVF SITE INSERTED THIS SHIFT TO LEFT UPPER ARM #[id number]. WITH GOOD BLOOD RETURN.
--- NOTE | 2019-02-03 05:27 | NUR ---
PT. AM PERSONAL HYGIENE BEING RENDERED BY CNAS AT THIS TIME. CHLORHEXIDINE WIPES USED PER PROTOCOL IF PT. GOES OPERATING ROOM. PT. AT THIS TIME SO AWAKE. NO SOB. NO RESTLESSNESS. NEEDS WERE ANTICIPATED THIS SHIFT AND MET.
[2019-02-03] MEDS: PIPERACILLIN/TAZOBACTAM 3.375 GM in DEXTROSE 5% 50 ML IV SCH ×3 (05:40→17:14)
[2019-02-03] MEDS: LEVOTHYROXINE 0.025 MG TAB PO SCH (05:41)
[2019-02-03 06:40] LABS: BASOPHILS # (AUTO) 0.1 K/uL (0.00-0.22); BASOPHILS % (AUTO) 0.7 % (0.0-2.0); EOSINOPHILS # (AUTO) 0.2 K/uL (0-0.4); HEMATOCRIT 34.2 % (36-52); HEMOGLOBIN 11.2 g/dL (12.0-18.0); LYMPHOCYTES # (AUTO) 1.4 K/uL (2.0-11.5); LYMPHOCYTES % (AUTO) 15.6 % (20.5-51.1); MEAN CORPUSCULAR HEMOGLOBIN 33 pg (27-31); MEAN CORPUSCULAR HGB CONC 33 g/dL (33-37); MEAN CORPUSCULAR VOLUME 99.3 fL (80-94); MONOCYTES # (AUTO) 0.6 K/uL (0.8-1.0); MONOCYTES % (AUTO) 7.3 % (1.7-9.3); NEUTROPHILS # (AUTO) 6.6 K/uL (1.8-7.7); NEUTROPHILS % (AUTO) 74.4 % (42.2-75.2); PLATELET COUNT (AUTO) 188 K/uL (140-450); RED BLOOD CELL COUNT(AUTO) 3.44 MIL/uL (4.20-6.10); RED CELL DISTRIBUTION WIDTH 15.5 % (11.6-13.7); WHITE BLOOD COUNT (AUTO) 8.8 K/uL (4.8-10.8)
[2019-02-03] MEDS ORDERED: HYDROGEN PEROXIDE 3% 240 ML BTL TP ONE (07:14)
--- NOTE | 2019-02-03 07:15 | NUR ---
RECEIVED REPORT FROM JIG GRINDER SET UP OPERATOR RN NESTOR. PT IN BED, SLEEPING. BREATHING EVEN AND UNLABORED. NO IV RUNNING AT THIS TIME. CALL LIGHT WITHIN REACH, JIG GRINDER SET UP OPERATOR SITTER STILL AT BEDSIDE.
[2019-02-03 07:25] LABS: ANION GAP 10.4 (8-16); CARBON DIOXIDE 28.2 mmol/L (21-32); CREATININE 1.1 mg/dL (0.7-1.3); POTASSIUM 4.6 mmol/L (3.5-5.1)
--- NOTE | 2019-02-03 07:25 | NUR ---
NURSES FROM OR TOOK PT FOR PROCEDURE, EXPLORATION OF ABD WOUND.
[2019-02-03 07:33] LABS: MAGNESIUM 1.7 mg/dL (1.8-2.4); PHOSPHORUS 2.5 mg/dL (2.5-4.9)
[2019-02-03] MEDS ORDERED: MIDAZOLAM 2 MG/2 ML VIAL ONE ×2 (07:59)
[2019-02-03] MEDS ORDERED: fentaNYL 0.05 MG/ML VIAL ONE (07:59)
[2019-02-03] MEDS ORDERED: LIDOCAINE/EPI MPF 1%1:200000 30 ML VIAL INJ ONE (08:15)
--- NOTE | 2019-02-03 09:05 | NUR ---
PT CAME BACK FROM OR, VITALS TAKEN. O2 SAT 90% IN ROOM AIR. APPLIED O2 2L NC, HOWEVER PT REMOVED IT IMMEDIATELY. PT UNCOOPERATIVE AND REFUSED TO PUT ON NC AND CONTINUOUS PULSE OX MONITORING.
[2019-02-03 09:10] VITALS: BP 104/61
[2019-02-03] MEDS: POLYETHYLENE GLYCOL 17 GM/PKT PO SCH ×2 (09:48→20:15)
[2019-02-03] MEDS: DOCUSATE 100 MG/10 ML UDC GT SCH (09:48)
[2019-02-03] MEDS: SENNA 8.6 MG TAB PO SCH ×3 (09:49→17:11)
[2019-02-03] MEDS: risperiDONE 1 MG TAB PO SCH ×3 (09:50→17:11)
[2019-02-03] MEDS: LACTOBACILLUS RHAMNOSUS GG 1 EACH CAP PO SCH (09:50)
[2019-02-03] MEDS: DIVALPROEX SPRINKLES 125 MG CAPDR PO SCH ×3 (09:50→17:11)
--- NOTE | 2019-02-03 09:50 | NUR ---
DR COLE CAME BY, MADE HIM AWARE THAT PT REFUSED NC. SCHEDULED MEDS WERE GIVEN, CRUSHED AND MIXED WITH PUDDING. PT TOOK MEDS WELL. NO COUGHING OR CHOKING.
[2019-02-03] MEDS: TAMSULOSIN 0.4 MG CAP PO SCH (09:51)
[2019-02-03] MEDS: SODIUM CHLORIDE 0.65% 45 ML BTL NS SCH ×2 (09:51→20:15)
--- NOTE | 2019-02-03 10:15 | NUR ---
WOUND VAC MACHINE WAS DELIVERED. CONNECTED PT TO WOUND VAC. WOUND VAC MACHINE FUNCTIONING PROPERLY AT THIS TIME, MINIMAL SANGUINOUS FLUID SEEN IN THE COLLECTION BAG.
[2019-02-03] MEDS: GAUZE TP SCH ×2 (11:07→11:08)
--- NOTE | 2019-02-03 11:09 | NUR ---
ABD WOUND VAC DRESSING WILL BE CHANGED Q3D OR PRN SOILED. NEXT SCHEDULED DRESSING CHANGE WILL BE ON 02/06/19.
--- NOTE | 2019-02-03 11:10 | NUR ---
[facility] AND LEFT A MESSAGE FOR [facility]GRA THAT PT IS GOING TO SNF FOR IV ABX AND WOUND VAC . CM TO FOLLOW
--- NOTE | 2019-02-03 12:20 | NUR ---
SCHEDULED MED GIVEN CRUSHED AND MIXED WITH APPLE SAUCE. PT ATE WELL, NO CHOKING OR COUGHING NOTED.
--- NOTE | 2019-02-03 14:45 | NUR ---
RECEIVED A CALL FROM [facility] ,SPOKE WITH MCKAY , SHE WILL SEND SOMEONE TO CHECK THE PT.
[2019-02-03] MEDS ORDERED: MAG SULF 2000 MG/WATER PREMIX 50 ML IV SCH (15:00)
--- NOTE | 2019-02-03 15:10 | NUR ---
MOTHER MS GUZMÁN VISITED. ASKED MOTHER WHO USUALLY GIVES CONSENT FOR THE PT. MS GUZMÁN SAID SHE IS THE ONE, PROVIDED PHONE NUMBER [phone]. WILL PASS DOWN THE NUMBER TO NEXT SHIFT RN.
[2019-02-03 15:32] VITALS: BP 99/54
--- NOTE | 2019-02-03 16:03 | NUR ---
RECEIVED A CALL FROM MCKAY AT [facility] [phone] ACCEPTED PT AND CAN GO TO ROOM 29A , THERE WILL BE A WOUND VAC AVAILABLE AT THE FACILITY. UNABLE TO REACH DR ELENA TO CLEAR THE PT FOR DISCHARGE AND DISCHARGE WILL BE HELD FOR TOMORROW 02/04/19. MCKAY ARRANGED TRANSPORT ON 02/04/19 SECURITY SYSTEMS ADMINISTRATOR TIME AT 1 PM. NOTIFIED CHARGE NURSE PROSPER.
--- NOTE | 2019-02-03 16:15 | NUR ---
PT WAS CLEANED, URINE INCONTINENCE X1. CHUX AND DRAW SHEET CHANGED. HIDE WOUND VAC TUBING WITH ABD BINDERS. PT WAS REPOSITIONED TO THE RIGHT LATERAL, HOWEVER, PT TOOK OUT THE PILLOW HIMSELF. EXPLAINED TO PT THAT WE NEED TO ROTATE HIM Q2H, PT UNABLE TO COMPREHEND.
--- NOTE | 2019-02-03 17:33 | NUR ---
SCHEDULED MED GIVEN CRUSHED AND MIXED WITH APPLE SAUCE. PT ATE WELL, NO CHOKING OR COUGHING NOTED.
--- NOTE | 2019-02-03 18:32 | NUR ---
SPOKE WITH DR RAY, ASKED IF VANCO WILL BE STARTED TODAY. DR RAY SAID SHE WILL CHECK ON THAT.
--- NOTE | 2019-02-03 19:15 | NUR ---
RECEIVED BEDSIDE REPORT FROM DAY SHIFT NURSE, DL. PT IS SLEEPING IN BED. NO S/S OF SOB NOTED ON ROOM AIR. NO AGITATION EPISODE AT THIS TIME. PT CONTINUE ON SITTER. SKIN WARM AND DRY TO TOUCH. WOUND VAC IS RUNNING. IV SITE TO RFA NO 22 INTACT, PATENT, AND ASYMPTOMATIC. SL. PT IS INCONTINENT BOWEL AND BLADDER. KEPT PT CLEAN AND DRY. BED IN LOW POSITION, CALL LIGHT IN REACH.
[2019-02-03] MEDS: traZODone 50 MG TAB PO SCH (20:16)
--- NOTE | 2019-02-03 20:16 | NUR ---
GIVEN SCHEDULED MEDICATIONS. PT TOLERATED WELL.
[2019-02-03] MEDS: LORazepam 1 MG TAB PO PRN (20:48)
--- NOTE | 2019-02-03 20:48 | NUR ---
PT AGITATING, GIVEN ATIVAN MD ORDERED. PT TOLERATED WELL.
--- NOTE | 2019-02-03 21:10 | NUR ---
GIVEN ANOTHER ATIVAN MD ORDERED. WILL CONTINUE TO MONITOR.
[2019-02-03] MEDS ORDERED: LORazepam 1 MG TAB PO SCH (21:15)
[2019-02-03] MEDS ORDERED: MORPHINE SULFATE 2 MG/ML SYR IVP ONE (21:45)
--- NOTE | 2019-02-03 21:46 | NUR ---
GIVEN MORPHINE MD ORDERED. PT TOLERATED WELL.
[2019-02-03] MEDS ORDERED: MORPHINE SULFATE 2 MG/ML SYR ONE (21:49)
[2019-02-04] VITALS: BP 130/55
--- NOTE | 2019-02-04 | NUR ---
VS CHECKED, WITHIN PT'S BASELINE. GIVEN ZOSYN MD ORDERED. PT TOLERATED WELL.
[2019-02-04] MEDS: PIPERACILLIN/TAZOBACTAM 3.375 GM in DEXTROSE 5% 50 ML IV SCH ×2 (00:01→05:09)
[2019-02-04] MEDS: HYDRAGUARD CREAM TP SCH (01:50)
--- NOTE | 2019-02-04 02:15 | NUR ---
PT SLEEPING IN BED. BREATHING EVEN AND UNLABORED. NO ACUTE DISTRESS NOTED. WILL CONTINUE TO MONITOR.
--- NOTE | 2019-02-04 05:09 | NUR ---
GIVEN ZOSYN MD ORDERED. PT TOLERATED WELL. WILL CONTINUE TO MONITOR.
[2019-02-04] MEDS: LEVOTHYROXINE 0.025 MG TAB PO SCH (06:41)
--- NOTE | 2019-02-04 06:42 | NUR ---
GIVEN SYNTHROID MD ORDERED. PT TOLERATE WELL.
--- NOTE | 2019-02-04 07:01 | NUR ---
WOUND VAC LEAKING, ENFORCED LINE WITH TEGADEM FILM. NO LEAKING NOTED.
--- NOTE | 2019-02-04 07:15 | NUR ---
RECEIVED REPORT FROM NIGHT NURSE. PT SLEEPING, AROUSABLE TO SPEECH. NO DISTRESS NOTED. FLACC 0. IV IN L FA 22G SALINE LOCKED. SKIN WARM AND DRY, SURGICAL WOUND IN ABDOMEN WITH WOUND VAC. RESPIRATIONS EVEN AND UNLABORED ON ROOM AIR. LUNG SOUNDS CLEAR BILATERALLY. BED IN LOW POSITION. SAFETY MEASURES IN PLACE. CALL LIGHT WITHIN REACH. WILL CONTINUE TO MONITOR
[2019-02-04 07:32] LABS: BASOPHILS % (AUTO) 0.7 % (0.0-2.0); EOSINOPHILS # (AUTO) 0.2 K/uL (0-0.4); EOSINOPHILS % (AUTO) 3.6 % (0.0-4.0); HEMOGLOBIN 11.5 g/dL (12.0-18.0); LYMPHOCYTES # (AUTO) 1.5 K/uL (2.0-11.5); LYMPHOCYTES % (AUTO) 23.8 % (20.5-51.1); MEAN CORPUSCULAR HEMOGLOBIN 33 pg (27-31); MEAN CORPUSCULAR HGB CONC 33 g/dL (33-37); MEAN CORPUSCULAR VOLUME 100.1 fL (80-94); MONOCYTES # (AUTO) 0.5 K/uL (0.8-1.0); MONOCYTES % (AUTO) 8.5 % (1.7-9.3); NEUTROPHILS # (AUTO) 4.1 K/uL (1.8-7.7); NEUTROPHILS % (AUTO) 63.4 % (42.2-75.2); PLATELET COUNT (AUTO) 197 K/uL (140-450); RED CELL DISTRIBUTION WIDTH 15.7 % (11.6-13.7); WHITE BLOOD COUNT (AUTO) 6.4 K/uL (4.8-10.8)
[2019-02-04 08:00] VITALS: BP 98/53
[2019-02-04 08:07] LABS: MAGNESIUM 2.1 mg/dL (1.8-2.4)
[2019-02-04 08:09] LABS: ANION GAP 7.7 (8-16); CARBON DIOXIDE 30.6 mmol/L (21-32); POTASSIUM 4.3 mmol/L (3.5-5.1)
--- NOTE | 2019-02-04 09:40 | NUR ---
MEDICATIONS ADMINISTERED PER ORDERS. PT TOLERATED WELL. NO DISTRESS NOTED. FLACC 0. SAFETY MEASURES IN PLACE. WILL CONTINUE TO MONITOR.
[2019-02-04] MEDS ORDERED: ZOS3.375I IV (10:06)
[2019-02-04] MEDS ORDERED: LACT10CA1 PO (10:06)
[2019-02-04] MEDS: POLYETHYLENE GLYCOL 17 GM/PKT PO SCH (10:23)
[2019-02-04] MEDS: DIVALPROEX SPRINKLES 125 MG CAPDR PO SCH (10:24)
[2019-02-04] MEDS: DOCUSATE 100 MG/10 ML UDC GT SCH (10:24)
[2019-02-04] MEDS: risperiDONE 1 MG TAB PO SCH (10:24)
[2019-02-04] MEDS: LACTOBACILLUS RHAMNOSUS GG 1 EACH CAP PO SCH (10:24)
[2019-02-04] MEDS: SENNA 8.6 MG TAB PO SCH (10:25)
[2019-02-04] MEDS: TAMSULOSIN 0.4 MG CAP PO SCH (10:25)
[2019-02-04] MEDS: SODIUM CHLORIDE 0.65% 45 ML BTL NS SCH (10:33)
[2019-02-04 10:51] VITALS: BP 100/56
--- NOTE | 2019-02-04 12:10 | NUR ---
PT DISCHARGED AT THIS TIME. PT LEAVING TO SNF IN STABLE CONDITION. PT DISCHARGE TEACHINGS COMPLETED, PT UNABLE TO VERBALIZE UNDERSTANDING. PT ESCORTED OFF THE UNIT VIA GURNEY.
--- NOTE | 2019-02-04 12:11 | NUR ---
IV LEFT IN PLACE L FA 22G SALINE LOCKED DUE TO CONTINUED IV ANTIBIOTICS AT SNF. ID BANDS REMOVED. INFORMED JONATHAN BOARD AND CARE ADMIN OF DISCHARGE. TRANSFERED TO [facility]. WOUND VAC LEFT IN PLACE DUE TO PLACEMENT LESS THAN 24HS AGO, SEROSANGUINOUS DRAINAGE PRESENT.
[2019-02-04] MEDS ORDERED: RIS1 PO (16:26)
[2019-02-04] MEDS ORDERED: DIVA125E1 PO (16:32)
== END 2019-02-04 12:00 | DRG 856 ==
LOC: MED 16:56 → MTU 01-25 01:05
PROVIDERS: ADMIT General Practice; ATTEND General Practice
PROC: 0D9670Z Drainage of Stomach with Drainage Device, Via Natural or Artificial Opening (ICD-10-PCS; 2019-01-25)
PROC: 0WBF0ZZ Excision of Abdominal Wall, Open Approach (ICD-10-PCS; principal; 2019-02-03 07:30)
DX: T81.41XA Infection following a procedure, superficial incisional surgical site, initial encounter (principal); G93.41 Metabolic encephalopathy; E43 Unspecified severe protein-calorie malnutrition; J18.1 Lobar pneumonia, unspecified organism; J98.11 Atelectasis; I31.3 Pericardial effusion (noninflammatory); R18.8 Other ascites; K59.39 Other megacolon; F84.0 Autistic disorder; K92.9 Disease of digestive system, unspecified; K29.70 Gastritis, unspecified, without bleeding; K31.89 Other diseases of stomach and duodenum; F42.9 Obsessive-compulsive disorder, unspecified; E83.42 Hypomagnesemia; E86.0 Dehydration; F41.9 Anxiety disorder, unspecified; F63.9 Impulse disorder, unspecified; E03.9 Hypothyroidism, unspecified; E87.5 Hyperkalemia; R74.0 Nonspecific elevation of levels of transaminase and lactic acid dehydrogenase [LDH]; F91.9 Conduct disorder, unspecified; G47.00 Insomnia, unspecified; F29 Unspecified psychosis not due to a substance or known physiological condition; Y83.8 Other surgical procedures as the cause of abnormal reaction of the patient, or of later complication, without mention of misadventure at the time of the procedure; R33.9 Retention of urine, unspecified; Z88.8 Allergy status to other drugs, medicaments and biological substances; Z68.22 Body mass index [BMI] 22.0-22.9, adult; Z79.899 Other long term (current) drug therapy; Q90.9 Down syndrome, unspecified; Y92.89 Other specified places as the place of occurrence of the external cause
CPT/HCPCS: 36415; 70450; 71045; 74018; 80048; 80053; 80305; 81001; 82150; 83690; 83735; 84100; 84443; 85025; 85610; 85730; 87070; 87075; 87081; 87186; 87205; 92610; 93308; 96372; 96374; 96376; 99285; C1758; J1200; J1630; J2001; J2060; J2250; J2270; J2543; J2704; J3010; J3475; J7030; J7060; J7120; Q0092; Q0163

== ENCOUNTER 2019-02-17 13:29 | Inpatient (IN) | payer OTHER, MEDICAID ==
[~2019-02-17] VITALS: Ht 165.1 cm; Wt 64.9 kg
[~2019-02-17 13:29] MED LIST changes: -BENZ-248 PO; +BISA-188 PO; -BISA5ECT43 PO; -BUS5 PO; +DIVA125E1 PO; -FLEMIN PO; +FLEMIN RC; +LACT10CA1 PO; -METO5SOL24 PO; +METO5TAB4 PO; -QUET100T44 PO; +TRAZ-343 PO; +ZOS3.375I IV
[2019-02-17 13:44] VITALS: BP 105/63
--- NOTE | 2019-02-17 13:50 | NUR ---
PT BIBA FOR POSSIBLE INFECTION TO SURGICAL SITE, INCISION TO MIDDLE OF ABD HAS PURULENT DRAINAGE, REDNESS SPREADING OUT OVER ABD. ABD IS ROUND, SOFT, NONTENDER TO PALPATION. PT IS AWAKE BUT NON VERBAL THIS IS PT BASELINE PER EMS. PMH DOWNS SYNDROME, SCIZOPHRENIA, EPS, ANXIETY, HYPOTHYROID, BOWEL PREFORATION
[2019-02-17] MEDS ORDERED: NACL 0.9% 1,000 ML IV ONE ×2 (13:55→16:10)
--- NOTE | 2019-02-17 14:00 | NUR ---
ER MD NOTIFIED THAT PT IS AGITATED AND RESTLESS, UNABLE TO GET CT AT THIS TIME.
[2019-02-17 14:41] LABS: HEMATOCRIT 33.2 % (36-52); HEMOGLOBIN 10.8 g/dL (12.0-18.0); MEAN CORPUSCULAR VOLUME 100.7 fL (80-94); WHITE BLOOD COUNT (AUTO) 8.5 K/uL (4.8-10.8)
[2019-02-17 14:42] LABS: EOSINOPHILS % (AUTO) 0.6 % (0.0-4.0); LYMPHOCYTES % (AUTO) 10.7 % (20.5-51.1); MEAN CORPUSCULAR HEMOGLOBIN 33 pg (27-31); MEAN CORPUSCULAR HGB CONC 33 g/dL (33-37); NEUTROPHILS % (AUTO) 80.3 % (42.2-75.2); PLATELET COUNT (AUTO) 209 K/uL (140-450); RED CELL DISTRIBUTION WIDTH 16.7 % (11.6-13.7)
[2019-02-17 14:43] LABS: EOSINOPHILS # (AUTO) 0.1 K/uL (0-0.4); LYMPHOCYTES # (AUTO) 0.9 K/uL (2.0-11.5); MONOCYTES # (AUTO) 0.7 K/uL (0.8-1.0); NEUTROPHILS # (AUTO) 6.8 K/uL (1.8-7.7)
[2019-02-17 14:45] LABS: PROTHROMBIN TIME 10.9 secs (10.8-13.4)
--- NOTE | 2019-02-17 14:59 | NUR ---
PT PULLED OUT IV, BLEEDING CONTROLLED, IV CATHETER FOUND INTACT ON FLOOR. PARENTS AT BEDSIDE AT THIS TIME. VSS. ER NOTIFIED.
--- NOTE | 2019-02-17 15:16 | NUR ---
ED MD MADE AWARE OF HYPOTENSION /.
[2019-02-17 15:18] LABS: ANION GAP 13.4 (8-16); CREATININE 1.2 mg/dL (0.7-1.3); POTASSIUM 5.4 mmol/L (3.5-5.1)
[2019-02-17 15:19] LABS: TOTAL BILIRUBIN 0.2 mg/dL (0.0-1.0)
[2019-02-17 15:21] LABS: ALBUMIN 1.9 g/dL (3.4-5.0)
[2019-02-17] MEDS ORDERED: LORazepam 2 MG/ML VIAL IVP ONE (16:10)
[2019-02-17] MEDS ORDERED: HALOPERIDOL IM 5 MG/ML VIAL IM ONE (16:45)
[2019-02-17] MEDS ORDERED: ONDA4TAB PO (16:51)
[2019-02-17] MEDS ORDERED: ACET-2619 PO (16:51)
[2019-02-17] MEDS ORDERED: ZINC220C12 PO (16:51)
[2019-02-17] MEDS ORDERED: QUET100T PO (16:51)
[2019-02-17] MEDS ORDERED: ASCO500T45 PO (16:51)
[2019-02-17] MEDS ORDERED: MULT-1868 PO (16:51)
[2019-02-17] MEDS ORDERED: TRAZ-343 PO (16:51)
--- NOTE | 2019-02-17 17:09 | NUR ---
PER ER MD, HOLD HALOPERIDOL DUE TO HYPOTENSION 90/63. PER ER MD RUN NS 1000ML BOLUS.
--- NOTE | 2019-02-17 18:30 | NUR ---
BP 79/56 AND 02 SAT 89%. PLACED ON 2L, 02 SAT INCREASED TO 94%. ER MD AWARE.
[2019-02-17] MEDS ORDERED: PIPERACILLIN/TAZOBACTAM 3.375 GM in DEXTROSE 5% 50 ML IV ONE (18:45)
[2019-02-17] MEDS ORDERED: MORPHINE SULFATE 2 MG/ML SYR IVP PRN (19:05)
[2019-02-17] MEDS ORDERED: HYDROcodone/APAP 7.5/325 MG 1 TAB PO PRN (19:05)
[2019-02-17] MEDS ORDERED: ONDANSETRON 4 MG/2 ML VIAL IM/IVP PRN (19:05)
[2019-02-17] MEDS ORDERED: ACETAMINOPHEN 325 MG TAB PO PRN (19:05)
--- NOTE | 2019-02-17 19:25 | NUR ---
LATE DOCUMENTATION ADMINISTERED ZOSYN.
[2019-02-17] MEDS ORDERED: PIPERACILLIN/TAZOBACTAM 3.375 GM VIAL IV ONE ×2 (19:47→21:38)
--- NOTE | 2019-02-17 20:41 | NUR ---
RECIEVED PT FROM ER , AAOX1 - DOWN'S SYNDROME , SLEEPY - HALDOL JUST GIVEN AT ER . NID . 96% BP 100/60 . AFEBRILE , WITH ABDL. UNHEALING WOUND - S/P EXP. LAP.IV SITE PULLED OUT BY THE PT. EVENTHOUGH SLEEPY BUT STIL TRYING TO GET PU OUT FROM THE BED - ON RESTRAINT OF BOTH HAND WITH SOFT WRIST AND MITTEN - TRANSFER TO BED BU 43 PEOPLE ASSIST - UNSTABLE GAIT - FALL LRISK - BED ALARM ON , FALL / SAFETY PRECAUTION PROTOCOL INITIATES , PLAN OF CARE DISCUSSED BUT POOR UNDERSTANDING DUE TO MENTAL STATUS , MRSA SPECIMEN COLLECTED AND SEND TO LAB. WITHY HX OF MRSA - ON CONTACT ISOLATION. WILL CONTONUE TO MONITOR.
--- NOTE | 2019-02-17 20:48 | NUR ---
Admited to TELE. Will go to room 123 B. Belongings list completed. Report to JORY IRIZARRY .
[2019-02-17] MEDS: NACL 0.9% 1,000 ML IV SCH (20:55)
[2019-02-17] MEDS ORDERED: KETOROLAC 15 MG/ML VIAL IVP PRN (21:05)
[2019-02-17 21:55] LABS: FREE T4 (FREE THYROXINE) 0.18 ng/dL (0.76-1.46); MAGNESIUM 1.7 mg/dL (1.8-2.4); PHOSPHORUS 2.7 mg/dL (2.5-4.9)
[2019-02-17] MEDS: DOCUSATE SODIUM 250 MG GELCAP PO SCH (22:00)
[2019-02-17] MEDS: LORazepam 1 MG TAB PO SCH (22:00)
[2019-02-17] MEDS: traZODone 50 MG TAB PO SCH (22:01)
[2019-02-17] MEDS: ASCORBIC ACID 500 MG TAB PO SCH (22:01)
[2019-02-17] MEDS: PIPERACILLIN/TAZOBACTAM 3.375 GM in DEXTROSE 5% 50 ML IV SCH (22:30)
--- NOTE | 2019-02-17 23:45 | NUR ---
FC INSERTED ORDERED -PROCEDURE TOLERATED - URINE SPECIMEN SEND TO LAB . WILL CONT. TO MONITOR.
[2019-02-18 00:04] LABS: THYROID STIMULATING HORMONE 111.47 uIU/mL (0.34-3.74)
[2019-02-18 00:31] VITALS: BP 100/60
[2019-02-18 03:54] LABS: APPEARANCE,URINE CLEAR (CLEAR); BILIRUBIN,URINE NEGATIVE (NEGATIVE); BLOOD, URINE NEGATIVE (NEGATIVE); COLOR,URINE YELLOW (YELLOW); LEUKOCYTE ESTERASE ,URINE NEGATIVE (NEGATIVE); NITRITE, URINE NEGATIVE (NEGATIVE); PH,URINE 7.5 (5.0-9.0); UGLUCOSE NEGATIVE (NEGATIVE)
[2019-02-18 04:00] VITALS: BP 104/60
[2019-02-18 04:37] LABS: BARBITURATE, URINE NEGATIVE ng/ml (NEG <=200); BENZODIAZEPINE, URINE NEGATIVE ng/mL (NEG <=200); CANNABINOID, URINE NEGATIVE ng/mL (NEG <=50); COCAINE, URINE NEGATIVE ng/mL (NEG <=300); OPIATE, URINE NEGATIVE ng/mL (NEG <=2000); PHENCYCLIDINE SCREEN,URINE NEGATIVE ng/mL (NEG <=25)
[2019-02-18] MEDS ORDERED: PIPERACILLIN/TAZOBACTAM 3.375 GM VIAL IV ONE (04:47)
[2019-02-18] MEDS: PIPERACILLIN/TAZOBACTAM 3.375 GM in DEXTROSE 5% 50 ML IV SCH ×3 (05:11→20:59)
--- NOTE | 2019-02-18 05:18 | NUR ---
REFER TO GALEN - DUE TO ABD. SEEMS BIGGER THAN IT WAS -KEEP PT ON NPO EXCEPTS MEDS HE ORDER. WILL CONT. TO MONITOR.
[2019-02-18] MEDS ORDERED: LEVOTHYROXINE 0.025 MG TAB PO SCH (06:30)
--- NOTE | 2019-02-18 07:25 | NUR ---
ENDORSED TO AM SHIFT , AWAKE , WITH V/S WNL LIMIT .
--- NOTE | 2019-02-18 07:25 | NUR ---
RECEIVED REPORT FORM COAL GETTER RN AT BEDSIDE. PT IS AA,OX0. HX OF DOWN SYNDROME. NO RESPIRATORY DISTRESS ON ROOM AIR, LUNG SOUNDS CLEAR. FLACC 0. IV CATH TO THE RIGHT FA 22G INTACT, PATENT, AND ASYMPTOMATIC, INFUSING NS AT 60ML/HR. BOTH WRIST SOFT RESTRAINT AND MITTENS ON. CALZADA CATH IN PLACE DRAINING CLEAR YELLOW URINE. SAFETY MEASURES IN PLACE, CALL LIGHT WITHIN REACH.
[2019-02-18 07:26] LABS: BASOPHILS % (AUTO) 0.3 % (0.0-2.0); EOSINOPHILS # (AUTO) 0.1 K/uL (0-0.4); EOSINOPHILS % (AUTO) 1.1 % (0.0-4.0); HEMATOCRIT 37.8 % (36-52); HEMOGLOBIN 12.3 g/dL (12.0-18.0); LYMPHOCYTES # (AUTO) 0.9 K/uL (2.0-11.5); MEAN CORPUSCULAR HEMOGLOBIN 33 pg (27-31); MEAN CORPUSCULAR HGB CONC 33 g/dL (33-37); MEAN CORPUSCULAR VOLUME 100.9 fL (80-94); MONOCYTES # (AUTO) 0.5 K/uL (0.8-1.0); MONOCYTES % (AUTO) 6.4 % (1.7-9.3); NEUTROPHILS # (AUTO) 5.7 K/uL (1.8-7.7); NEUTROPHILS % (AUTO) 79.2 % (42.2-75.2); PLATELET COUNT (AUTO) 226 K/uL (140-450); RED BLOOD CELL COUNT(AUTO) 3.74 MIL/uL (4.20-6.10); RED CELL DISTRIBUTION WIDTH 17.4 % (11.6-13.7); WHITE BLOOD COUNT (AUTO) 7.2 K/uL (4.8-10.8)
--- NOTE | 2019-02-18 07:50 | NUR ---
ABD WOUND WITH GAUZE CLEAN AND DRY.
[2019-02-18 08:00] VITALS: BP_SYST 10; BP_SYST 104; BP_DIAS 69
--- NOTE | 2019-02-18 08:20 | NUR ---
MADE DR ROBLES AND DR REYEZ AWARE OF THE ASHLEE AREA INCONTINENT DERMATITIS. ASKED MDS IF THEY WANT HYDRAGUARD OR ANTIFUNGAL. RESIDENT MDS SAID WILL PUT IN.
[2019-02-18] MEDS: risperiDONE 1 MG TAB PO SCH ×3 (08:41→16:44)
[2019-02-18] MEDS: LORazepam 1 MG TAB PO SCH ×2 (08:41→20:59)
[2019-02-18] MEDS: ASCORBIC ACID 500 MG TAB PO SCH ×2 (08:42→21:51)
[2019-02-18] MEDS: QUEtiapine FUMARATE 100 MG TAB PO SCH ×3 (08:42→16:45)
[2019-02-18] MEDS: LACTOBACILLUS RHAMNOSUS GG 1 EACH CAP PO SCH (08:42)
[2019-02-18] MEDS: SENNA 8.6 MG TAB PO SCH ×3 (08:42→16:44)
[2019-02-18] MEDS: DOCUSATE SODIUM 250 MG GELCAP PO SCH ×2 (08:42→20:59)
[2019-02-18] MEDS: DIVALPROEX SPRINKLES 125 MG CAPDR PO SCH ×3 (08:42→16:45)
[2019-02-18] MEDS: ZINC SULF 220 MG CAP PO SCH (08:43)
--- NOTE | 2019-02-18 08:47 | NUR ---
PATIENT HAS BEEN SCREENED AND CATEGORIZED HIGH NUTRITION RISK. PATIENT WILL BE SEEN WITHIN 1-2 DAYS OF ADMISSION. 02/19/19-02/20/[address]
[2019-02-18 08:48] LABS: CHOL/HDL RATIO 3.5 (1-4.5)
[2019-02-18 08:51] LABS: ANION GAP 10.6 (8-16); POTASSIUM 5.6 mmol/L (3.5-5.1)
[2019-02-18 08:52] LABS: CREATININE 0.9 mg/dL (0.7-1.3)
--- NOTE | 2019-02-18 10:28 | NUR ---
DR ELENA IS HERE TO EXAM PT. ORDERED TO CLEAN THE WOUND WITH H2O2 AND WET TO DRY DRESSING.
--- NOTE | 2019-02-18 10:29 | NUR ---
MADE DR ELENA AWARE THERE ARE CLEAR PLASTIC LIKE STRINGS IN THE WOUND BED, DR ELENA SAID IT THE DISSOLVABLE SUTURES.
--- NOTE | 2019-02-18 10:40 | NUR ---
AMBER WOUND CULTURE COLLECTED AND SENT TO LAB.
--- NOTE | 2019-02-18 10:48 | NUR ---
02/18/19 RD INITIAL ASSESSMENT COMPLETED PLEASE REFER TO NUTRITION ASSESSMENT UNDER CARE ACTIVITY FOR ESTIMATED NUTRITIONAL NEEDS. WHEN MEDICALLY ABLE, RESUME DIET TO REGULAR TOLERATED. CONSIDER ADDING ENSURE ENLIVE BID W/MEALS IF PT. NOT MEETING >75% ESTIMATED NEEDS BY FOLLOWING ASSESSMENT. 3. RD TO FOLLOW-UP 2-3 DAYS, HIGH RISK MARIA DEL CARMEN HAYDEN, RD
[2019-02-18] MEDS ORDERED: SODIUM PHOSPHATE 118 ML ENEM RC SCH (11:30)
[2019-02-18] MEDS ORDERED: BISACODYL 5 MG TABEC PO SCH (11:30)
[2019-02-18 12:00] VITALS: BP 103/64
[2019-02-18] MEDS: NACL 0.9% 1,000 ML IV SCH (12:50)
[2019-02-18] MEDS ORDERED: FUROSEMIDE 20 MG/2 ML VIAL IVP SCH (14:15)
[2019-02-18] MEDS ORDERED: MAGNESIUM CITRATE 300 ML BTL PO SCH (14:30)
[2019-02-18 16:00] VITALS: BP 100/61
--- NOTE | 2019-02-18 16:01 | NUR ---
APPLIED HEEL PROTECTOR FOR PT, HOWEVER PT REMOVED HIMSELF WITH HIS FEET. PT HAS DOWN SYNDROME, NOT ABLE TO COMPREHEND.
[2019-02-18] MEDS ORDERED: HYDRAGUARD CREAM TP SCH (16:15)
--- NOTE | 2019-02-18 16:50 | NUR ---
US ABD HAS BEEN DONE, ASSISTANCE PROVIDED.
--- NOTE | 2019-02-18 19:00 | NUR ---
ELECTRIC ORGAN ASSEMBLER AND CHECKER CAME ASKING IF BMP NEEDED, CALLED DR HERNANDEZ WHO SAID JUST DO IT NOW.
[2019-02-18 19:39] LABS: ANION GAP 8.1 (8-16); CARBON DIOXIDE 29.9 mmol/L (21-32); CREATININE 1.1 mg/dL (0.7-1.3)
[2019-02-18 20:00] VITALS: BP 105/65
[2019-02-18] MEDS: NACL 0.9% IRR 250 ML BOTTLE IR SCH (20:58)
[2019-02-18] MEDS ORDERED: ALGINATE DRESSING MC SCH (21:00)
[2019-02-18] MEDS: traZODone 50 MG TAB PO SCH (21:00)
[2019-02-18] MEDS: POLYETHYLENE GLYCOL 17 GM/PKT PO SCH (21:00)
[2019-02-18] MEDS: GAUZE TP SCH (21:52)
[2019-02-18] MEDS: HYDRAGUARD CREAM TP SCH (21:52)
[2019-02-18] MEDS: HYDROGEN PEROXIDE 3% 240 ML BTL TP SCH (21:52)
[2019-02-19] VITALS (8 sets, daily range): BP systolic 85–114; BP diastolic 50–78
--- NOTE | 2019-02-19 00:15 | NUR ---
INFORMED DR REYES THAT PT HAS CONGESTION. WILL ORDER NEBULAIZATION AND MUCINEX. ABG ORDERED. WILL CARRY OUT Addendum: 02/19/19 at 0120 by Fiona Hernandez RN WITH RR=[id number];WITH SHORTNESS OF BREATH; MUCUS COMING OUT FROM NOSE OCCASIONALLY. DR. REYES AWARE
[2019-02-19] MEDS ORDERED: ALBUTEROL SULFATE/IPRATROPIU 3 ML SOL IH PRN (00:25)
[2019-02-19] MEDS ORDERED: guaiFENesin 600 MG TABER PO SCH (00:25)
--- NOTE | 2019-02-19 01:14 | NUR ---
2 RT'S CAME TO DRAW ABG LEVELS FOR CONGESTION OF PT.
--- NOTE | 2019-02-19 01:15 | NUR ---
UNABLE TO GET PROPER ABG. CAMILLA UP MIXED ARTERIAL/VENOUS SAMPLE AND SPOKE TO DR. HERNANDEZ ABOUT RESULTS. WILL PERFORM ANOTHER ABG PUNCTURE IN A FEW HOURS PER DR. HERNANDEZ'S REQUEST. NURSE AWARE.
--- NOTE | 2019-02-19 02:01 | NUR ---
BREATHING TX ONGOING; SHOWING WITH ABNORMAL ECG TRACING BUT WILL MONITOR AFTER THE BREATHING TX DONE
--- NOTE | 2019-02-19 02:10 | NUR ---
PT WAS SEEN AND ASSESS BY RT. RT NOTED SOB, BREATH SOUNDS: WHEEZING. DouNeb PRN WAS GIVEN ORDERED. PT TOLERATED TX WELL WITH NO ADVERSE REACTION. PT REQUIRED OXYMIZER 8LPM TO KEEP Sp02 RANGE 92%-97%.
--- NOTE | 2019-02-19 02:25 | NUR ---
RT GETTING A READING ON THE ABG SAT. PT REPOSITIONED TO HIGH FOWLERS POSITION; 02 SAT 87% LEFT EARLOBE
--- NOTE | 2019-02-19 02:50 | NUR ---
RT ADJUSTED 02 TO 8 LPM; ON OXIMIZER ; O2 SAT AT 92%
[2019-02-19] MEDS: PIPERACILLIN/TAZOBACTAM 3.375 GM in DEXTROSE 5% 50 ML IV SCH ×3 (05:07→20:05)
[2019-02-19] MEDS: LEVOTHYROXINE 0.112 MG TAB PO SCH (06:19)
[2019-02-19] MEDS ORDERED: LEVOTHYROXINE 0.025 MG TAB PO SCH (06:30)
[2019-02-19] MEDS ORDERED: LEVOTHYROXINE 0.1 MG TAB PO SCH (06:30)
--- NOTE | 2019-02-19 06:30 | NUR ---
PT AWAKE, FLACC O, WITH RESTRAINTS, STILL WHEEZING BUT MORE STABLE. CHECKED ON IT Q 2 FOR CIRCULATION, WILL ENDORSE TO NEXT SHIFT FOR CONTINUITY OF CARE
[2019-02-19 06:41] LABS: BASOPHILS % (AUTO) 0.3 % (0.0-2.0); EOSINOPHILS % (AUTO) 0.1 % (0.0-4.0); HEMATOCRIT 34.3 % (36-52); HEMOGLOBIN 11.4 g/dL (12.0-18.0); LYMPHOCYTES # (AUTO) 0.3 K/uL (2.0-11.5); LYMPHOCYTES % (AUTO) 2.8 % (20.5-51.1); MEAN CORPUSCULAR HEMOGLOBIN 33 pg (27-31); MEAN CORPUSCULAR HGB CONC 33 g/dL (33-37); MEAN CORPUSCULAR VOLUME 99.4 fL (80-94); MONOCYTES # (AUTO) 0.5 K/uL (0.8-1.0); MONOCYTES % (AUTO) 4.7 % (1.7-9.3); NEUTROPHILS # (AUTO) 9.9 K/uL (1.8-7.7); NEUTROPHILS % (AUTO) 92.1 % (42.2-75.2); PLATELET COUNT (AUTO) 238 K/uL (140-450); RED BLOOD CELL COUNT(AUTO) 3.45 MIL/uL (4.20-6.10); RED CELL DISTRIBUTION WIDTH 17.2 % (11.6-13.7); WHITE BLOOD COUNT (AUTO) 10.7 K/uL (4.8-10.8)
[2019-02-19 07:06] LABS: ANION GAP 8.6 (8-16); CARBON DIOXIDE 30.2 mmol/L (21-32); POTASSIUM 3.8 mmol/L (3.5-5.1)
[2019-02-19 07:09] LABS: MAGNESIUM 1.9 mg/dL (1.8-2.4); PHOSPHORUS 3.5 mg/dL (2.5-4.9)
--- NOTE | 2019-02-19 07:25 | NUR ---
RECEIVED ENDORSEMENT FROM HOME CARE MUSIC THERAPIST NURSE. PATIENT IS AWAKE, NONVERBAL. RESPIRATIONS ARE EVEN AND UNLABORED ON 8L OXYMIZER. FLACC 0. F/C IN PLACE, DRAINING HOLLY COLORED URINE. RIGHT FA 22G IV INTACT AND SL. DRSG NOTED ON MID ABD, C/D/I. RESTRAINTS IN PLACE, CMS INTACT. PLAN OF CARE WAS REVIEWED WITH PATIENT, PATIENT UNABLE TO VERBALIZE UNDERSTANDING. SAFETY MEASURES IN PLACE, CALL LIGHT WITHIN REACH.
--- NOTE | 2019-02-19 07:54 | NUR ---
LOC AWAKE COMBATIVE NON COMPLIANT TO SUPPLEMENTAL OXYGEN USE HHN THERAPY VIA MASK (PATIENT SELF REMOVAL) HEALTHCARE PROVIDER OBTAINING DIAGNOSTIC RESULTS (IE: SATURATION, CARDIAC RATE)
[2019-02-19] MEDS: ALBUTEROL SULFATE/IPRATROPIU 3 ML SOL IH SCH ×3 (07:55→19:56)
--- NOTE | 2019-02-19 08:05 | NUR ---
HX: DOWNS SYNDROME LOC AWAKE COMBATIVE NON COMPLIANT PATIENT UNABLE TO FOLLOW COMMANDS FOR INCENTIVE SPIROMETRY THERAPY ORDERED
[2019-02-19] MEDS: LACTOBACILLUS RHAMNOSUS GG 1 EACH CAP PO SCH (08:34)
[2019-02-19] MEDS: LORazepam 1 MG TAB PO SCH ×2 (08:35→20:06)
[2019-02-19] MEDS: guaiFENesin 600 MG TABER PO SCH ×2 (08:35→20:06)
[2019-02-19] MEDS: risperiDONE 1 MG TAB PO SCH ×3 (08:36→16:25)
[2019-02-19] MEDS: QUEtiapine FUMARATE 100 MG TAB PO SCH ×3 (08:36→16:25)
[2019-02-19] MEDS: SENNA 8.6 MG TAB PO SCH ×2 (08:36→20:08)
[2019-02-19] MEDS: ZINC SULF 220 MG CAP PO SCH (08:37)
[2019-02-19] MEDS: DOCUSATE SODIUM 250 MG GELCAP PO SCH ×2 (08:37→20:06)
[2019-02-19] MEDS: DIVALPROEX SPRINKLES 125 MG CAPDR PO SCH ×3 (08:37→16:25)
[2019-02-19] MEDS: ASCORBIC ACID 500 MG TAB PO SCH ×2 (08:37→20:07)
[2019-02-19] MEDS: POLYETHYLENE GLYCOL 17 GM/PKT PO SCH ×2 (08:38→20:08)
[2019-02-19] MEDS: GAUZE TP SCH ×2 (08:38→21:09)
[2019-02-19] MEDS: NACL 0.9% IRR 250 ML BOTTLE IR SCH ×2 (08:38→20:05)
[2019-02-19] MEDS: HYDRAGUARD CREAM TP SCH ×2 (08:38→21:09)
[2019-02-19] MEDS: HYDROGEN PEROXIDE 3% 240 ML BTL TP SCH ×2 (08:38→21:09)
--- NOTE | 2019-02-19 08:38 | NUR ---
ADMINISTERED SCHEDULED MEDICATIONS WITH APPLESAUCE. NO OTHER NEEDS AT THIS TIME. WILL CONTINUE TO MONITOR.
--- NOTE | 2019-02-19 09:15 | NUR ---
PATIENT REFUSED TO HAVE OXYGEN ON. KEEPS REMOVING. NO OTHER NEEDS AT THIS TIME.
--- NOTE | 2019-02-19 09:50 | NUR ---
RESTRAINTS PLACED. CMS INTACT. NO OTHER NEEDS AT THIS TIME.
--- NOTE | 2019-02-19 10:50 | NUR ---
PATIENT PULLED OFF DRSG. WOUND CARE DONE AT THIS TIME.PATIENT TOLERATED WELL. PATIENT IS NOW SLEEPING, VISIBLE RISE AND FALL OF CHEST. NO OTHER NEEDS AT THIS TIME.
--- NOTE | 2019-02-19 12:00 | NUR ---
PATIENT SLEEPING, APPLIED OXYMIZER BACK TO PATIENT. VISIBLE RISE AND FALL OF CHEST. NO OTHER NEEDS AT THIS TIME. Addendum: 02/19/19 at 1329 by Danielle Odom RN O2 SAT AT 100% NOW
[2019-02-19] MEDS: FUROSEMIDE 20 MG/2 ML VIAL IVP SCH ×2 (13:00→13:06)
--- NOTE | 2019-02-19 13:21 | NUR ---
ADMINISTERED SCHEDULED MEDICATIONS. HELD LASIX FOR BP OF 85/50. DR. REYEZ IS AWARE. PER DR. REYEZ RECHECK BP IN AN HOUR. NO OTHER NEEDS AT THIS TIME.
--- NOTE | 2019-02-19 15:24 | NUR ---
PATIENT SLEEPING, VISIBLE RISE AND FALL OF CHEST. NO OTHER NEEDS AT THIS TIME, WILL CONTINUE TO MONITOR.
--- NOTE | 2019-02-19 16:25 | NUR ---
ADMINISTERED SCHEDULED MEDICATIONS. ADMINISTERED SCHEDULED ENEMA. PATIENT TOLERATED WELL. NO OTHER NEEDS AT THIS TIME. WILL CONTINUE TO MONITOR.
[2019-02-19] MEDS ORDERED: SODIUM PHOSPHATE 118 ML ENEM RC SCH (16:30)
[2019-02-19] MEDS ORDERED: BISACODYL 10 MG SUPP RC SCH (16:30)
--- NOTE | 2019-02-19 17:25 | NUR ---
PATIENT SLEEPING, VISIBLE RISE AND FALL OF CHEST. NO OTHER NEEDS AT THIS TIME. WILL CONTINUE TO MONITOR.
--- NOTE | 2019-02-19 19:13 | NUR ---
ENDORSED TO CLINICAL MARKETING MANAGER NURSE FOR CONTINUITY OF CARE. PATIENT IS STABLE AT THIS TIME.
--- NOTE | 2019-02-19 19:14 | NUR ---
RECEIVED REPORT FORM AM SHIFT RN AT BEDSIDE. PT IS AWAKE, FLACC 0, NONVERBAL, BEDREST. HX OF DOWN SYNDROME. NO RESPIRATORY DISTRESS ON ROOM AIR, LUNG SOUNDS CLEAR. IV CATH TO THE RIGHT FA 22G INTACT, PATENT, AND SALINE LOCK. BOTH WRIST SOFT RESTRAINT AND MITTENS ON W/ ORDERS. CALZADA CATH IN PLACE DRAINING YELLOW URINE. SAFETY MEASURES IN PLACE, CALL LIGHT WITHIN REACH. WILL CONTINUE TO MONITOR
--- NOTE | 2019-02-19 20:00 | NUR ---
RT AT BEDSIDE ADJUSTED THE OXIMIZER TO 5 LPM; PLACED O2 SAT DEVICE AT LEFT EARLOBE.
--- NOTE | 2019-02-19 20:00 | NUR ---
PT CLEANED BOWEL MOVEMENT NOTED, MODERATE. TURENED PT AND CHECKED FOR CIRCULATION ON PT'S UE RESTRAINTS
[2019-02-19] MEDS: traZODone 50 MG TAB PO SCH (20:06)
--- NOTE | 2019-02-19 20:06 | NUR ---
ADMINISTERED DUE MEDS, PT, ABLE TO TOLERATE IT MIXED W/ SOFT FOODS. HOIST WORKER FED PT AND ATE 70% OF SERVED FOOD
--- NOTE | 2019-02-19 21:09 | NUR ---
PT'S ABDOMINAL WOUND REINFORCED GAUZE, IRRIGATION NS, AND HYDROGEN PEROXIDE.
--- NOTE | 2019-02-19 22:00 | NUR ---
CHECKED DEONTE PT;S UE FOR CIRCULATION; TURNED PT AGAIN TO ONE SIDE AGAIN
--- NOTE | 2019-02-19 23:57 | NUR ---
TOOK A PICTURE OF THE PT'S ABDOMINAL WOUND (DX: ABDOMINAL CELLULITIS), OPEN, NO ODOR, WITH GRANULATION TISSUE.
[2019-02-20] VITALS: BP 97/71
[2019-02-20] MEDS: NACL 0.9% 1,000 ML IV SCH (03:15)
--- NOTE | 2019-02-20 03:15 | NUR ---
DR. HERNANDEZ INFORMED THAT PT'S OUTPUT INSUFFICIENT; NO IVFB RUNNING ONLY FOR ANTIBIOTICS; ORDERED TO START NS AT 50 ML HR X 20 HRS DUE TIME: AT 2330
[2019-02-20 04:00] VITALS: BP 108/78
[2019-02-20] MEDS: PIPERACILLIN/TAZOBACTAM 3.375 GM in DEXTROSE 5% 50 ML IV SCH ×3 (05:59→22:19)
[2019-02-20] MEDS: LEVOTHYROXINE 0.112 MG TAB PO SCH (06:02)
[2019-02-20] MEDS: ALBUTEROL SULFATE/IPRATROPIU 3 ML SOL IH SCH ×3 (06:55→20:08)
--- NOTE | 2019-02-20 06:55 | NUR ---
PATIENT KNOWN TO BE NON COMPLIANT AND COMBATIVE ON OCCASION PROBABLE SELF REMOVAL OF SUPPLEMENTAL OXYGEN SATURATION 88% ON ROOM AIR POST HHN THERAPY PLACED BACK ON SUPPLEMENTAL OXYGEN AT 2 LPM VIA NC
[2019-02-20 06:56] LABS: BASOPHILS # (AUTO) 0.1 K/uL (0.00-0.22); BASOPHILS % (AUTO) 0.9 % (0.0-2.0); EOSINOPHILS # (AUTO) 0.3 K/uL (0-0.4); EOSINOPHILS % (AUTO) 3.1 % (0.0-4.0); HEMATOCRIT 33.3 % (36-52); HEMOGLOBIN 10.9 g/dL (12.0-18.0); LYMPHOCYTES # (AUTO) 0.9 K/uL (2.0-11.5); LYMPHOCYTES % (AUTO) 11.4 % (20.5-51.1); MEAN CORPUSCULAR HEMOGLOBIN 33 pg (27-31); MEAN CORPUSCULAR HGB CONC 33 g/dL (33-37); MEAN CORPUSCULAR VOLUME 100.6 fL (80-94); MONOCYTES # (AUTO) 0.3 K/uL (0.8-1.0); MONOCYTES % (AUTO) 4.1 % (1.7-9.3); NEUTROPHILS # (AUTO) 6.6 K/uL (1.8-7.7); NEUTROPHILS % (AUTO) 80.5 % (42.2-75.2); PLATELET COUNT (AUTO) 221 K/uL (140-450); RED BLOOD CELL COUNT(AUTO) 3.31 MIL/uL (4.20-6.10); RED CELL DISTRIBUTION WIDTH 17.3 % (11.6-13.7); WHITE BLOOD COUNT (AUTO) 8.2 K/uL (4.8-10.8)
--- NOTE | 2019-02-20 07:05 | NUR ---
PT IN STABLE CONDITION, ENDORSED TO AM NURSE
[2019-02-20 07:22] LABS: MAGNESIUM 2.1 mg/dL (1.8-2.4); PHOSPHORUS 3.3 mg/dL (2.5-4.9)
--- NOTE | 2019-02-20 07:25 | NUR ---
RECEIVED PT FROM NIGHT NURSE IN STABLE CONDITION. APHASIC. AAOX1. RESPIRATIONS EVEN AND UNLABORED ON 2L NC. ABD SURGICAL WOUND. DRESSING DRY AND INTACT. IV IN PLACE INFUSING PER ORDER. SAFETY MEASURES IN PLACE. BED IN LOW POSITION. CALL LIGHT WITHIN REACH. WILL CONTINUE TO MONITOR.
[2019-02-20 07:28] LABS: ANION GAP 4.9 (8-16); CARBON DIOXIDE 37.7 mmol/L (21-32); CREATININE 1.3 mg/dL (0.7-1.3); POTASSIUM 5.6 mmol/L (3.5-5.1)
[2019-02-20 08:00] VITALS: BP 82/60
[2019-02-20] MEDS: NACL 0.9% IRR 250 ML BOTTLE IR SCH (09:00)
[2019-02-20] MEDS: HYDROGEN PEROXIDE 3% 240 ML BTL TP SCH (09:00)
--- NOTE | 2019-02-20 09:48 | NUR ---
ADMINISTERED MEDICATIONS PER ORDER. ABD WOUND DRESSING CHANGE DONE WITH WOUNDCARE NURSE NEETU. PT REFUSED HEEL CUSHION BOOTS. WILL CONTINUE TO MONITOR.
[2019-02-20] MEDS: guaiFENesin 600 MG TABER PO SCH ×2 (09:53→22:17)
[2019-02-20] MEDS: DIVALPROEX SPRINKLES 125 MG CAPDR PO SCH ×3 (09:53→18:26)
[2019-02-20] MEDS: LORazepam 1 MG TAB PO SCH ×2 (09:53→22:17)
[2019-02-20] MEDS: POLYETHYLENE GLYCOL 17 GM/PKT PO SCH ×2 (09:53→22:16)
[2019-02-20] MEDS: risperiDONE 1 MG TAB PO SCH ×3 (09:54→18:26)
[2019-02-20] MEDS: ZINC SULF 220 MG CAP PO SCH (09:55)
[2019-02-20] MEDS: QUEtiapine FUMARATE 100 MG TAB PO SCH ×3 (09:55→18:26)
[2019-02-20] MEDS: LACTOBACILLUS RHAMNOSUS GG 1 EACH CAP PO SCH (09:55)
[2019-02-20] MEDS: DOCUSATE SODIUM 250 MG GELCAP PO SCH ×2 (09:55→22:16)
[2019-02-20] MEDS: SENNA 8.6 MG TAB PO SCH ×2 (09:55→22:16)
[2019-02-20] MEDS: ASCORBIC ACID 500 MG TAB PO SCH ×2 (09:56→22:16)
[2019-02-20] MEDS ORDERED: FUROSEMIDE 20 MG/2 ML VIAL IVP SCH (10:00)
--- NOTE | 2019-02-20 10:30 | NUR ---
WOUND CARE EVALUATION NOTE: REASON FOR EVALUATION: ABDOMINAL SURGICAL WOUND WOUND CARE EVALUATION DONE WITH PRIMARY RN THIS MORNING TO ABDOMINAL SURGICAL WOUND WITH THIS 43 Y/O MALE PT. ADMITTED TO [facility] FROM [facility]. PT HAD HX OF EXPLORATORY LAPAROTOMY PERFORATED BOWEL ON 2018. PT IS AWAKE RESTLESS, KICK OFF HEEL PROTECTORS AND RESISTANCE TO STAY ON SIDE/ OFF LOADING. POC DISCUSSED WITH PRIMARY RN AND DR. SCHMITT, WILL HOLD ON THE WOUND VAC AT THIS TIME DUE TO INFECTION AND SLOUGH IN THE WOUND BED. INTEGUMENTARY: -MOISTURE ASSOCIATE DERMATITIS TO GROINS, SCROTAL AND PERIANAL AREAS, SKIN REDNESS WITH IRRITATION, SKIN INTACT -MID ABDOMINAL SURGICAL WOUND, 14X4.8CM, DEPTH IS UTD, WOUND BED 60 % GRANULATING TISSUE WITH SEGMENTS OF YELLOW SLOUGH TO CENTER AND DISTAL PARTS OF WOUND BED, MODERATE AMOUNT GREEN PURULENT DRAINAGE, MILD ODOR, NO S/S OF WOUND DEHISCENCE, ASHLEE WOUND SKIN REDNESS AND INTACT -SACRALCOCCYX, BUTTOCKS BLANCHABLE REDNESS WITH SKIN INTACT. -BILATERAL BLANCHABLE REDNESS TO RIGHT AND LEFT HEELS SKIN DRY AND INTACT RECOMMENDATIONS: -CLEANSE ABDOMINAL SURGICAL WOUND WITH WOUND CARE SOLUTION. PAT DRY, APPLY HYDRAGUARD TO ASHLEE WOUND REDNESS, APPLY SILVER ALGINATE DRESSING TO WOUND BED, COVER WITH ABD PAD, AND SECURE WITH TAPE, DRESSING CHANGE Q M-W-F AND PRN IF SOILING -APPLY HYDRAGUARD TO MOISTURE ASSOCIATE DERMATITIS ON GROINS, SCROTAL AND PERIANAL AREAS, AND BLANCHABLE REDNESS TO R/L HEELS, SACRALCOCCYX AND BUTTOCKS BID AND PRN IF SOILING, OIL SALES AND SERVICE REP -MOISTURE CONTROL, PLEASE KEEP SKIN DRY AND CLEAN AT ALL TIMES. ALL ABOVE RECOMMENDATION DISCUSSED WITH PRIMARY RN PLEASE CONTACT WOUND CARE NURSE IF ANY QUESTIONS OR CHANGE OF WOUND CONDITION.
[2019-02-20] MEDS: GAUZE TP SCH (11:01)
[2019-02-20] MEDS: HYDRAGUARD CREAM TP SCH (11:02)
[2019-02-20 12:00] VITALS: BP 93/69
--- NOTE | 2019-02-20 12:17 | NUR ---
MEDICATIONS ADMINISTERED PER ORDER. PT TOLERATED WELL. WILL CONTINUE TO MONITOR.
[2019-02-20 15:55] LABS: HEPATITIS A ANTIBODY IGM Negative (Negative); HEPATITIS B CORE AB TOTAL Negative (Negative); HEPATITIS B SURFACE ANTIBODY Non Reactive (.); HEPATITIS B SURFACE ANTIGEN Negative (Negative)
[2019-02-20 16:00] VITALS: BP 97/65
--- NOTE | 2019-02-20 16:01 | NUR ---
MEDICATIONS ADMINISTERED PER ORDER. PT TOLERATED WELL. NO DISTRESS NOTED. WILL CONTINUE TO MONITOR.
--- NOTE | 2019-02-20 18:12 | NUR ---
MEDICATIONS ADMINISTERED PER ORDER. PTS PARENTS ON THE UNIT TO SIGN CONSENT FOR US GUIDED PARACENTESIS. WILL CONTINUE TO MONITOR.
[2019-02-20] MEDS: FERROUS SULFATE 325 MG TABEC PO SCH (18:26)
--- NOTE | 2019-02-20 19:30 | NUR ---
ENDORSED PT TO NIGHT NURSE FOR CONTINUITY OF CARE IN STABLE CONDITION.
--- NOTE | 2019-02-20 19:45 | NUR ---
PT TOOK OFF HIS DRESSINGS AGAIN, DESPITE RESTRAINTS AND WILL DO WOUND CARE. WILL FOLLOW UP LATER
[2019-02-20 20:00] VITALS: BP 98/70
--- NOTE | 2019-02-20 20:30 | NUR ---
INFORMED DR. GOETZ RE: PT SCREAMING IN PAIN BECAUSE HE TOOK OUT HIS DRESSING, WILL PLACE ORDER FOR A PAIN MED FOR SEVERE PAIN. WILL CARRY OUT
--- NOTE | 2019-02-20 21:00 | NUR ---
DRESSED THE WOUND OF PT PATIENT W/ CALCIUM ALGINATE AND CLEANSED W/ NS 30 ML PER ORDER
[2019-02-20] MEDS: MORPHINE SULFATE 2 MG/ML SYR IVP PRN (21:21)
[2019-02-20] MEDS: traZODone 50 MG TAB PO SCH (22:16)
--- NOTE | 2019-02-20 22:30 | NUR ---
STOPPED IVF RATE OF 50ML/HR PER DR. HAWA HERNANDEZ) TO RUN IT FOR 20 HRS SINCE YESTERDAY AT 0330 AM
[2019-02-21] VITALS: BP 98/78
--- NOTE | 2019-02-21 | NUR ---
PT SLEEPING COMFORTABLE NOT IN NOBLE WILL CONTINUE TO MONITOR Addendum: 02/21/19 at 0819 by Fiona Hernandez RN NOT IN PAIN
[2019-02-21] MEDS: NACL 0.9% IRR 250 ML BOTTLE IR SCH ×3 (00:37→21:44)
[2019-02-21] MEDS: GAUZE TP SCH ×3 (00:37→21:42)
[2019-02-21] MEDS: HYDRAGUARD CREAM TP SCH ×3 (00:38→21:45)
[2019-02-21] MEDS: NACL 0.9% 1,000 ML IV SCH (03:15)
--- NOTE | 2019-02-21 03:42 | NUR ---
PT SLEEPING TURNED PT Q2; CIRCULATION CHECKED EVRY 2 HRS FOR RESTRAINTS ON THE UE. NO BRUISES, NO BLEEDING, EVERY 15 MINS RELEASED FOR ALL ADL'S AND TOILETING
[2019-02-21 04:00] VITALS: BP 98/75
--- NOTE | 2019-02-21 05:16 | NUR ---
PT SLEEPING TURNED PT Q2; CIRCULATION CHECKED EVERY 2 HRS FOR RESTRAINTS ON THE UE. NO BRUISES, NO BLEEDING, EVERY 15 MINS RELEASED FOR ALL ADL'S AND TOILETING
[2019-02-21] MEDS: PIPERACILLIN/TAZOBACTAM 3.375 GM in DEXTROSE 5% 50 ML IV SCH (06:31)
[2019-02-21] MEDS: ALBUTEROL SULFATE/IPRATROPIU 3 ML SOL IH SCH ×3 (06:40→19:26)
[2019-02-21] MEDS: LEVOTHYROXINE 0.112 MG TAB PO SCH (06:43)
[2019-02-21 07:14] LABS: BASOPHILS # (AUTO) 0.1 K/uL (0.00-0.22); EOSINOPHILS # (AUTO) 0.3 K/uL (0-0.4); EOSINOPHILS % (AUTO) 3.8 % (0.0-4.0); HEMATOCRIT 29.9 % (36-52); HEMOGLOBIN 9.8 g/dL (12.0-18.0); MEAN CORPUSCULAR HEMOGLOBIN 33 pg (27-31); MEAN CORPUSCULAR HGB CONC 33 g/dL (33-37); MEAN CORPUSCULAR VOLUME 100.3 fL (80-94); MONOCYTES # (AUTO) 0.5 K/uL (0.8-1.0); MONOCYTES % (AUTO) 6.2 % (1.7-9.3); PLATELET COUNT (AUTO) 203 K/uL (140-450); RED BLOOD CELL COUNT(AUTO) 2.98 MIL/uL (4.20-6.10); RED CELL DISTRIBUTION WIDTH 16.9 % (11.6-13.7); WHITE BLOOD COUNT (AUTO) 7.8 K/uL (4.8-10.8)
--- NOTE | 2019-02-21 07:15 | NUR ---
ENDORSED TO AM SHIFT NURSECLIFFORD. PT IN STABLE CONDITION, CONSENT SIGNED FOR ULTRASOUND GUIDED PARACENTESIS,
--- NOTE | 2019-02-21 07:16 | NUR ---
RECEIVED REPORT FROM LIVESTOCK COUNTER NURSE POLLY FOR CONTINUITY OF CARE. PT IN STABLE CONDITION. RESPIRATIONS EVEN AND UNLABORED, ROOM AIR. IV INTACT AND PATENT. SAFETY MEASURES IN PLACE. BED IN LOW POSITION. BED ALARM ON. CALL LIGHT AT BEDSIDE. WILL CONTINUE TO MONITOR.
[2019-02-21] MEDS ORDERED: VANCOMYCIN PER PHARMACY MC PRN (07:25)
[2019-02-21 07:40] LABS: PHOSPHORUS 3.3 mg/dL (2.5-4.9)
[2019-02-21 08:00] VITALS: BP 101/71
[2019-02-21 08:07] LABS: FOLIC ACID 11.1 ng/mL (>3.0)
[2019-02-21 08:20] LABS: CREATININE 1.3 mg/dL (0.7-1.3)
[2019-02-21 08:24] LABS: POTASSIUM 4.2 mmol/L (3.5-5.1)
[2019-02-21 08:30] LABS: CARBON DIOXIDE 33.2 mmol/L (21-32)
--- NOTE | 2019-02-21 09:45 | NUR ---
REPOSITIONED AND CLEANED AT THIS TIME. PT TOLERATED WELL WILL CONTINUE TO MONITOR.
[2019-02-21] MEDS: VANCOMYCIN HCL 750 MG in DEXTROSE 5% 250 ML IV SCH ×2 (10:10→21:06)
[2019-02-21] MEDS: LORazepam 1 MG TAB PO SCH ×2 (10:11→21:39)
[2019-02-21] MEDS: risperiDONE 1 MG TAB PO SCH ×3 (10:11→18:31)
[2019-02-21] MEDS: LACTOBACILLUS RHAMNOSUS GG 1 EACH CAP PO SCH (10:12)
[2019-02-21] MEDS: DIVALPROEX SPRINKLES 125 MG CAPDR PO SCH ×3 (10:12→18:31)
[2019-02-21] MEDS: SENNA 8.6 MG TAB PO SCH ×2 (10:12→21:38)
[2019-02-21] MEDS: guaiFENesin 600 MG TABER PO SCH ×2 (10:12→21:39)
[2019-02-21] MEDS: ZINC SULF 220 MG CAP PO SCH (10:12)
[2019-02-21] MEDS: DOCUSATE SODIUM 250 MG GELCAP PO SCH ×2 (10:12→21:38)
[2019-02-21] MEDS: ASCORBIC ACID 500 MG TAB PO SCH ×2 (10:13→21:39)
[2019-02-21] MEDS: QUEtiapine FUMARATE 100 MG TAB PO SCH ×3 (10:13→18:31)
[2019-02-21] MEDS: FERROUS SULFATE 325 MG TABEC PO SCH ×2 (10:13→18:31)
[2019-02-21] MEDS: POLYETHYLENE GLYCOL 17 GM/PKT PO SCH ×2 (10:14→21:39)
--- NOTE | 2019-02-21 11:02 | NUR ---
SPOKE WITH CAREGIVER FROM [facility] AT BEDSIDE. PT IN STABLE CONDITION. WILL CONTINUE TO MONITOR. BED IN LOW POSITION. BED ALARM ON. CALL LIGHT AT BEDSIDE.
--- NOTE | 2019-02-21 14:15 | NUR ---
02/21/19 RD FOLLOW UP COMPLETED PLEASE REFER TO NUTRITION ASSESSMENT UNDER CARE ACTIVITY FOR ESTIMATED NUTRITIONAL NEEDS. 1. CONTINUE REGULAR DIET TOLERATED 2. RD TO FOLLOW-UP 5-7 DAYS, LOW RISK COLETTE HARTLEY RD
--- NOTE | 2019-02-21 14:33 | NUR ---
PT LYING IN BED SLEEP AT THIS TIME. BED IN LOW POSITION. BED ALARM ON. CALL LIGHT AT BEDSIDE. WILL CONTINUE TO MONITOR.
--- NOTE | 2019-02-21 16:40 | NUR ---
US AT BEDSIDE. PT IN STABLE CONDITION. WILL CONTINUE TO MONITOR.
--- NOTE | 2019-02-21 17:02 | NUR ---
REPOSITIONED AND CHANGED AFTER BOWEL MOVEMENT. PT IN STABLE CONDITION. BED IN LOW POSITION. BED ALARM ON. CALL LIGHT AT BEDSIDE. WILL CONTINUE TO MONITOR.
[2019-02-21] MEDS ORDERED: KETOROLAC 15 MG/ML VIAL IVP PRN (17:05)
[2019-02-21 19:18] LABS: PROTHROMBIN TIME 9.8 secs (10.8-13.4)
--- NOTE | 2019-02-21 19:20 | NUR ---
RECD. RESTING IN BED, AWAKE, ALERT, APHASIC, OCCASIONALLY MAKES INCOMPREHENSIBLE SOUNDS. UNABLE TO FOLLOW COMMANDS, MENTALLY CHALLENGED. RESPIRATION EVEN AND UNLABORED. IV OF NS AT 30 ML/HR INFUSING, RIGHT FOREARM G22. ON BILATERAL SOFT WRIST RESTRAINTS, PATIENT IS TRYING TO GET OUT OF BED. WOUND IN THE ABDOMEN COVERED WITH DRESSING WITH ABDOMINAL BINDER, DRY AND INTACT. ABDOMINAL DISTENTION NOTED. WITH FAINT BOWEL SOUNDS ON AUSCULTATION. F/C PATENT DRAINING CLEAR YELLOW URINE. BILATERAL LOWER EXTREMITIES EDEMA 2+ NOTED. ELEVATED ON PILLOWS. NO APPEARANCE OF PAIN NOTED FLACC -0.
--- NOTE | 2019-02-21 19:20 | NUR ---
Patient's Plan of Care was discussed and reviewed with ELIZABETH: LAWRENCE. WILL CONTINUE TO MONITOR.
--- NOTE | 2019-02-21 19:25 | NUR ---
GAVE REPORT TO DIRECTOR CHILD ABUSE THERAPY NURSE LAWRENCE FOR CONTINUITY OF CARE. PT IN STABLE CONDITION.
[2019-02-21 20:00] VITALS: BP 96/65
--- NOTE | 2019-02-21 20:30 | NUR ---
RESTING IN BED, NO AGITATION NOTED.
--- NOTE | 2019-02-21 20:45 | NUR ---
DR. WEBB CAME AND CHECKED PATIENT, WILL FOLLOW UP WITH ANY NEW ORDER.
--- NOTE | 2019-02-21 21:06 | NUR ---
VANCO NOW INFUSING PER ORDERS. WILL CONTINUE TO MONITOR.
[2019-02-21] MEDS: traZODone 50 MG TAB PO SCH (21:38)
--- NOTE | 2019-02-21 21:40 | NUR ---
DUE PO MEDICATIONS GIVEN WITH APPLE SAUCE. TOLERATED WELL.
--- NOTE | 2019-02-21 23:00 | NUR ---
OCCASIONALLY TRIES TO GET OUT OF BED.
--- NOTE | 2019-02-22 | NUR ---
SLEEPING COMFORTABLY IN BED.
--- NOTE | 2019-02-22 02:00 | NUR ---
HAD LOOSE BM, YELLOW COLOR, MODERATE AMOUNT. CLEANSED AND MADE COMFORTABLE IN BED WITH PILLOWS.
[2019-02-22] MEDS: NACL 0.9% 1,000 ML IV SCH ×2 (03:15→06:56)
[2019-02-22 04:00] VITALS: BP 98/62
--- NOTE | 2019-02-22 04:00 | NUR ---
IN BED ASLEEP, NO DISTRESS NOTED.
--- NOTE | 2019-02-22 06:36 | NUR ---
CONDITION REMAIN STABLE. NO RESPIRATORY DISTRESS NOTED. SAFETY MAINTAINED DURING SHIFT. WILL ENDORSE TO AM NURSE FOR CONTINUITY OF CARE.
[2019-02-22] MEDS: LEVOTHYROXINE 0.112 MG TAB PO SCH (06:45)
[2019-02-22] MEDS: ALBUTEROL SULFATE/IPRATROPIU 3 ML SOL IH SCH ×3 (07:00→20:07)
--- NOTE | 2019-02-22 07:20 | NUR ---
RECEIVED BEDSIDE REPORT FROM PSYCHOLOGIST EDUCATIONAL NURSE FOR CONTINUITY OF CARE. PATIENT IS AWAKE AND RESTING QUIETLY ON BED. PATIENT IS AAOX1. RESPIRATION EVEN AND UNLABORED ON RA. FLACC 0. NO SIGNS OF DISTRESS NOTED. IV ON RFA 22G, CLEAN AND INTACT, INFUSING PER MD ORDER. ABDOMINAL SURGICAL WOUND NOTED AND COVERED WITH DRESSING AND ABD BAND, DRESSING CLEAN AND DRY. CALZADA IN PLACE AND DRAINING YELLOW URINE WITH GRAVITY. PATIENT IS INCONTINENT AND BEDREST AT THIS TIME. BILATERAL HAND NON-BEHAVIORAL RESTRAINTS IN PLACE, ASSESSED WRISTS, NO SIGNS OF INJURY AND CAPILLARY REFILLED < 3 SECS[address] SAFETY MEASURES IN PLACE. BED IN LOW POSITION AND CALL LIGHT WITHIN REACH. FALL RISK PROTOCOL IN PLACE AND BED ALARM ACTIVATED.
[2019-02-22 08:00] VITALS: BP 98/66
[2019-02-22 08:48] LABS: BASOPHILS % (AUTO) 0.2 % (0.0-2.0); EOSINOPHILS # (AUTO) 0.1 K/uL (0-0.4); EOSINOPHILS % (AUTO) 0.9 % (0.0-4.0); HEMATOCRIT 36.9 % (36-52); HEMOGLOBIN 11.9 g/dL (12.0-18.0); LYMPHOCYTES # (AUTO) 0.9 K/uL (2.0-11.5); LYMPHOCYTES % (AUTO) 8.3 % (20.5-51.1); MEAN CORPUSCULAR HEMOGLOBIN 32 pg (27-31); MEAN CORPUSCULAR HGB CONC 32 g/dL (33-37); MEAN CORPUSCULAR VOLUME 100.2 fL (80-94); MONOCYTES # (AUTO) 0.5 K/uL (0.8-1.0); MONOCYTES % (AUTO) 4.7 % (1.7-9.3); NEUTROPHILS # (AUTO) 9.7 K/uL (1.8-7.7); NEUTROPHILS % (AUTO) 85.9 % (42.2-75.2); PLATELET COUNT (AUTO) 253 K/uL (140-450); RED BLOOD CELL COUNT(AUTO) 3.68 MIL/uL (4.20-6.10); RED CELL DISTRIBUTION WIDTH 17.1 % (11.6-13.7); WHITE BLOOD COUNT (AUTO) 11.3 K/uL (4.8-10.8)
[2019-02-22 09:06] LABS: ANION GAP 7.8 (8-16); CREATININE 1.1 mg/dL (0.7-1.3); POTASSIUM 4.8 mmol/L (3.5-5.1)
[2019-02-22 09:11] LABS: MAGNESIUM 1.8 mg/dL (1.8-2.4); PHOSPHORUS 2.9 mg/dL (2.5-4.9)
--- NOTE | 2019-02-22 09:55 | NUR ---
WOUND CARE DONE WITH DR. WASHINGTON AND OVEN WORKER AT BED SIDE, DR. WASHINGTON EVALUATION DONE , POC EXPLAINED TO OVEN WORKER, SURGICAL WOUND RESPONDING TO CURRENT TREATMENT AND WILL CONTINUE THE SAME ORDER. PRIMARY RN NOTIFIED. ABDOMINAL DISTENTION REMAIN THE SAME. MID ABDOMINAL SURGICAL WOUND, 14X4.8CM, DEPTH IS UTD, WOUND BED 80 % GRANULATING TISSUE WITH SEGMENTS OF YELLOW SLOUGH TO CENTER PART OF WOUND BED, MODERATE AMOUNT YELLOW PURULENT DRAINAGE,NO ODOR, NO S/S OF WOUND DEHISCENCE, ASHLEE WOUND SKIN REDNESS IMPROVING AND INTACT
--- NOTE | 2019-02-22 09:55 | NUR ---
INFORMED DR SCHMITT THAT PATIENT IS GOING TO [facility] AT 1030 AND WILL BE UNDER GENERAL ANESTHESIA. DR SCHMITT WAS AWARE AND SAID TO HOLD ALL PATIENT'S AM MEDS.
--- NOTE | 2019-02-22 10:05 | NUR ---
WOUND HAS BEEN EVALUATED AND SEEN BY DR SCHMITT AND ELECTRONICS SUPERVISOR. ELECTRONICS SUPERVISOR CHANGED DRESSING. PATIENT TOLERATED WELL. SAFETY MEASURES IN PLACE. BED IN LOW POSITION AND CALL LIGHT WITHIN REACH. FALL RISK PROTOCOL IN PLACE AND BED ALARM ACTIVATED.
[2019-02-22] MEDS ORDERED: fentaNYL 0.05 MG/ML VIAL ONE (10:11)
--- NOTE | 2019-02-22 10:15 | NUR ---
1015-TRANSPORT PATIENT TO OR WITH OTTO RN 1017-[employer] DAIRY STORE MANAGER MET WITH RODOLFO CORLEY AND OTTO RN AND SAID "WE WILL BE IN THE OR SHORTLY" 1018- DR TIM AT BEDSIDE WITH PATIENT 1025- PATIENT WAS TRANSPORTED TO OR 1 DUE TO ISOLATION CONTACT PRECAUTIONS 1030- DR TIM GAVE ANESTHESIA 1035- CALLED RADIOLOGY TO KNOW ETA OF DR. DUBOIS. [employer] DAIRY STORE MANAGER SAID "IM SO SORRY DR VILLATORO CANCELLED THE CASE AND RADIOLOGIST WON'T BE DOING THE CASE." 1044- PATIENT TRANSPORTED TO PACU
[2019-02-22] MEDS ORDERED: PROPOFOL 200 MG/20 ML VIAL IV ONE (10:18)
--- NOTE | 2019-02-22 10:21 | NUR ---
PATIENT OFF UNIT TO OR DEPT. ACCOMPANIED BY OR NURSES. PATIENT IS IN STABLE CONDITION.
--- NOTE | 2019-02-22 10:44 | NUR ---
RECEIVED PT TO PACU, PT IS A/O TO NAME BUT DROWSY, IV FLUIDS INFUSING, NO S/S OF RESPIRATORY DISTRESS OR DISCOMFORT NOTED, PT IS ON O2 NC, VSS, WILL CONTINUE TO MONITOR. VITAL SIGNS: PAR: 1044 AM: 95/62, HR:85,O2 92%, RR:18, PAIN 0/ TEMP 98.8 13 1049 AM: 107/70 HR:87, O2: 94%, RR:16, PAIN: 0 1054 AM: 116/72, HR: 87, O2: 95%, RR: 16, PAIN: 0 105 AM: 110/75, HR: 87, O2: 96%, RR: 18, PAIN: 0 110 AM: 115/70, HR: 87, O2: 95%, RR:18, PAIN: 01108 AM: 115/73, HR: 87, O2: 94%, RR: 18, PAIN 111 AM: 123/68, HR: 87, O2: 95%, RR: 18, PAIN: 111 AM: 108/70, HR: 87, O2: 94%, RR: 18, PAIN: 112 AM: 113/70, HR: 88, O2: 95%, RR: 18, PAIN:
--- NOTE | 2019-02-22 10:58 | NUR ---
DC PLANNING: CONTACTED [facility] AT [phone], ABLE TO SPEAK TO MCKAY (COTY) REGARDING DC PLAN. SHE STATED PER PATIENT'S FAMILY, THEY DO NOT WANT THE PATIENT BACK IN THE FACILITY AND THEY TOOK ALL OF THE PATIENT'S BELONGINGS HOME. CONTACTED PATIENT'S MOTHER CLEOPATRA GUZMÁN AT [phone] REGARDING DC PLAN. SHE STATED SHE DOES NOT WANT THE PATIENT TO GO BACK TO [facility]. SHE STATED THAT THE PATIENT DEVELOPED A BAD DIAPER RASH BECAUSE THEY WERE NOT CHANGING HIM AND THE PATIENT LOST HIS SHOES WELL. SHE REQUESTED TO FIND ANOTHER PLACE FOR HER SON. DR. SCHMITT MADE AWARE.
--- NOTE | 2019-02-22 11:03 | NUR ---
REFERRAL SENT TO [facility] TO FOLLOW UP. Addendum: 02/22/19 at 1325 by Heather Mtz CM REFERRAL SENT TO [facility]. Addendum: 02/22/19 at 1326 by Heather Mtz CM PER [facility] THEY ARE NOT ABLE TO ACCOMMODATE PATIENT DUE TO THE MEDICATION HE IS ON.
--- NOTE | 2019-02-22 11:30 | NUR ---
TRANSFER CRITERIA MET, PT TRANSFERRED TO ROOM. REPORT GIVEN TO JORY BEDOYA.
--- NOTE | 2019-02-22 11:35 | NUR ---
PATIENT CAME BACK TO UNIT ACCOMPANIED WITH SINDY CORLEY. PATIENT IS RESTING ON BED AT THIS TIME. NO SIGNS OF DISTRESS NOTED. SAFETY MEASURES IN PLACE. BED IN LOW POSITION AND CALL LIGHT WITHIN REACH. FALL RISK PROTOCOL IN PLACE AND BED ALARM ACTIVATED.
[2019-02-22] MEDS: VANCOMYCIN HCL 750 MG in DEXTROSE 5% 250 ML IV SCH ×2 (12:35→20:31)
[2019-02-22] MEDS: POLYETHYLENE GLYCOL 17 GM/PKT PO SCH ×2 (12:36→21:47)
[2019-02-22] MEDS: SENNA 8.6 MG TAB PO SCH ×2 (12:37→21:46)
[2019-02-22] MEDS: DIVALPROEX SPRINKLES 125 MG CAPDR PO SCH ×3 (12:37→16:56)
[2019-02-22] MEDS: LACTOBACILLUS RHAMNOSUS GG 1 EACH CAP PO SCH (12:37)
[2019-02-22] MEDS: risperiDONE 1 MG TAB PO SCH ×3 (12:38→16:56)
[2019-02-22] MEDS: ZINC SULF 220 MG CAP PO SCH (12:38)
[2019-02-22] MEDS: ASCORBIC ACID 500 MG TAB PO SCH ×2 (12:38→21:46)
[2019-02-22] MEDS: DOCUSATE SODIUM 250 MG GELCAP PO SCH ×2 (12:38→21:46)
[2019-02-22] MEDS: QUEtiapine FUMARATE 100 MG TAB PO SCH ×3 (12:39→16:57)
[2019-02-22] MEDS: guaiFENesin 600 MG TABER PO SCH ×2 (12:39→21:46)
[2019-02-22] MEDS: LORazepam 1 MG TAB PO SCH ×2 (12:40→21:45)
[2019-02-22] MEDS: NACL 0.9% IRR 250 ML BOTTLE IR SCH ×2 (12:40→21:47)
[2019-02-22] MEDS: GAUZE TP SCH ×2 (12:40→21:48)
[2019-02-22] MEDS: ALGINATE DRESSING MC SCH (12:40)
[2019-02-22] MEDS: HYDRAGUARD CREAM TP SCH ×2 (12:41→21:48)
[2019-02-22] MEDS: FERROUS SULFATE 325 MG TABEC PO SCH ×2 (12:44→16:56)
--- NOTE | 2019-02-22 12:44 | NUR ---
PER DR SCHMITT, PROCEDURE HAS BEEN CANCELLED AND IT'S OK TO GIVE AM MEDS TO PATIENT. ADMINISTERED AM MEDS MIXED WITH PUDDING, PATIENT TOLERATED WELL. PATIENT AWAKE AND RESTING ON BED AT THIS TIME. NO SIGNS OF DISTRESS NOTED. SAFETY MEASURES IN PLACE. BED IN LOW POSITION AND CALL LIGHT WITHIN REACH. FALL RISK PROTOCOL IN PLACE AND BED ALARM ACTIVATED.
[2019-02-22] MEDS ORDERED: POLY17PD46 PO (13:02)
[2019-02-22] MEDS ORDERED: LUBI24SG4 PO (13:03)
--- NOTE | 2019-02-22 13:47 | NUR ---
WOUND DRESSING CLEAN AND DRY. APPLIED HYDRAGUARD ON ASHLEE AREA. OFF LOADED PRESSURES FROM LEGS WITH PILLOWS. PATIENT TOLERATED WELL. PATIENT IS RESTING ON BED AT THIS TIME. NO SIGNS OF DISTRESS NOTED. SAFETY MEASURES IN PLACE. FALL RISK PROTOCOL IN PLACE AND BED ALARM ACTIVATED.
--- NOTE | 2019-02-22 15:30 | NUR ---
Premium Card Cancellation Clerk Note: I faxed inquiry to both Meng Leonard and Andres Rodriguez.
--- NOTE | 2019-02-22 15:39 | NUR ---
PATIENT IS AWAKE AND RESTING ON BED QUIETLY AT THIS TIME. RESPIRATION EVEN AND UNLABORED. FLACC 0. ASSESSED RESTRAINT, NO SIGNS OF INJJURT, NO REDNESS, CAPILLARY REFILLED < 3 SECONDS, PERFORMED RANGE OF MOTION. NO SIGNS OF DISTRESS NOTED. SAFETY MEASURES IN PLACE. FALL RISK PROTOCOL IN PLACE AND BED ALARM ACTIVATED.
[2019-02-22 16:00] VITALS: BP 95/65
--- NOTE | 2019-02-22 16:51 | NUR ---
[employer] Note: Per Samaria from [facility] , patient has been accepted. I called and spoke with patient's Vivien. I informed her patient has been accepted at [facility]. She stated patient did not receive proper care at [facility] and is worried he will not receive proper care at [facility]. She asked me if we reviewed [facility] [place] [facility] reviews and asked me if I can guarantee her that patient will receive proper care at [facility]. I explained to her that we do not read online reviews and are not able to guarantee that. I explained to her that she has the option of contacting [facility] and/or [facility] and express her concerns regarding facility. I also explained to her that she has the right to speak with [facility] staff regarding her concerns and verbalize questions she might have. Vivien interrupted me several times during conversation and sounded agitated. She stated we "want to throw patient to a half-way where he will be worse". I reassured her we do not throw patients to nursing facilities. She proceeded to ask me if I can guarantee her that patient's wound has healed. I explained to her that as a [employer] I cannot make comments about patient's wound and explained to her she has the right to speak with Md regarding this matter. She expressed concerns about patient's discharge. I explained to her that she has the right to appeal discharge. She handed phone to her Faisal. Per Faisal, he is patient's stepfather. I provided Faisal with [facility]'s phone number.
--- NOTE | 2019-02-22 16:57 | NUR ---
ADMINISTERED MEDS PER MD ORDER, PATIENT TOLERATED WELL. MEDS EDUCATION PROVIDED TO PATIENT AND REINFORCEMENT NEEDED. PATIENT AWAKE AND RESTING ON BED AT THIS TIME. FLACC 0. NO SIGNS OF DISTRESS NOTED. SAFETY MEASURES IN PLACE. BED IN LOW POSITION AND CALL LIGHT WITHIN REACH. FALL RISK PROTOCOL IN PLACE AND BED ALARM ACTIVATED.
--- NOTE | 2019-02-22 17:45 | NUR ---
PATIENT IS AWAKE AND RESTING ON BED AT THIS TIME. FLACC 0. NO SIGNS OF DISTRESS NOTED. SAFETY MEASURES IN PLACE. BED IN LOW POSITION AND CALL LIGHT WITHIN REACH. FALL RISK PROTOCOL IN PLACE AND BED ALARM ACTIVATED.
--- NOTE | 2019-02-22 19:15 | NUR ---
ENDORSED PATIENT AT BEDSIDE TO MUSIC REHABILITATION THERAPIST NURSE FOR CONTINUITY OF CARE. PATIENT IS IN STABLE CONDITION. SAFETY MEASURES IN PLACE.
--- NOTE | 2019-02-22 19:16 | NUR ---
RECD. RESTING IN BED, AWAKE, ALERT, APHASIC, OCCASIONALLY MAKES INCOMPREHENSIBLE SOUNDS. ON 02 AT 2 LITERS BY NASAL CANNULA. RESPIRATION EVEN AND UNLABORED. LUNG SOUNDS DIMINISHED ON BILATERAL LUNG AUSCULTATION. IV OF NS AT TKO, RIGHT FOREARM G22. ON BILATERAL SOFT WRIST RESTRAINTS. PATIENT IS TRYING TO OCCASIONALLY GET OUT OF BED. WOUND IN THE ABDOMEN COVERED WITH DRESSING WITH ABDOMINAL BINDER, DRY AND INTACT. NOTED ABDOMEN DISTENDED, HARDLY AUDIBLE BOWEL SOUNDS. EDEMA NOTED ON BILATERAL LOWER EXTREMITIES, 2+, ELEVATED ON PILLOWS BUT PATIENT IS ALWAYS TRYING TO KICK OFF THE PILLOWS. F/C PATENT DRAINING CLEAR YELLOW URINE. REORIENTED TO HOSPITAL SETTING, NEEDS REINFORCEMENT. NO APPEARANCE OF PAIN NOTED - FLACC -0.
--- NOTE | 2019-02-22 19:17 | NUR ---
Patient's Plan of Care was discussed and reviewed with ELIZABETH: LAWRENCE. WILL CONTINUE TO MONITOR.
[2019-02-22] MEDS: traZODone 50 MG TAB PO SCH (21:45)
--- NOTE | 2019-02-22 21:47 | NUR ---
DUE PO MEDICATIONS GIVEN WITH PUDDING, ABLE TO SWALLOW GOOD. NO S/S OF ASPIRATION NOTED.
--- NOTE | 2019-02-23 | NUR ---
SLEEPING COMFORTABLY IN BED.
--- NOTE | 2019-02-23 02:00 | NUR ---
WOKES UP, STILL WANTS TO GET OUT OF BED AND PULL OUT THINGS AROUND HIM.
[2019-02-23 04:00] VITALS: BP 103/74
--- NOTE | 2019-02-23 04:00 | NUR ---
CLEANSED AND REPOSITIONED WITH PILLOWS FOR COMFORT. NO BM THIS SHIFT. CONDITION REMAIN STABLE. WILL ENDORSE TO AM NURSE FOR CONTINUITY OF CARE.
[2019-02-23 06:53] LABS: BASOPHILS # (AUTO) 0.1 K/uL (0.00-0.22); BASOPHILS % (AUTO) 0.5 % (0.0-2.0); EOSINOPHILS # (AUTO) 0.3 K/uL (0-0.4); EOSINOPHILS % (AUTO) 2.1 % (0.0-4.0); HEMATOCRIT 36.6 % (36-52); HEMOGLOBIN 11.8 g/dL (12.0-18.0); LYMPHOCYTES # (AUTO) 1.2 K/uL (2.0-11.5); LYMPHOCYTES % (AUTO) 9.1 % (20.5-51.1); MEAN CORPUSCULAR HEMOGLOBIN 32 pg (27-31); MEAN CORPUSCULAR HGB CONC 32 g/dL (33-37); MEAN CORPUSCULAR VOLUME 99.6 fL (80-94); MONOCYTES # (AUTO) 0.6 K/uL (0.8-1.0); MONOCYTES % (AUTO) 4.6 % (1.7-9.3); NEUTROPHILS # (AUTO) 10.7 K/uL (1.8-7.7); NEUTROPHILS % (AUTO) 83.7 % (42.2-75.2); PLATELET COUNT (AUTO) 230 K/uL (140-450); RED BLOOD CELL COUNT(AUTO) 3.67 MIL/uL (4.20-6.10); RED CELL DISTRIBUTION WIDTH 17.1 % (11.6-13.7); WHITE BLOOD COUNT (AUTO) 12.7 K/uL (4.8-10.8)
[2019-02-23] MEDS: ALBUTEROL SULFATE/IPRATROPIU 3 ML SOL IH SCH ×3 (07:00→22:02)
[2019-02-23] MEDS: LEVOTHYROXINE 0.112 MG TAB PO SCH (07:02)
--- NOTE | 2019-02-23 07:06 | NUR ---
RECEIVED BEDSIDE REPORT FROM PROFILE GRINDER TECHNICIAN NURSE. PATIENT IS APHASIC. SKIN HAS ABD WOUND. NO SIGNS OF DISTRESS ON RA. IV ON R FA 22G INFUSING NS AT 10. CLEAN, DRY AND INTACT. FALL RISK PROTOCOL IN PLACE. WRIST RESTRAINTS AND MITTENS ON. PATIENT INCONTINENT W INCONTINENT DERMATITIS, PATIENT HAS A CALZADA. BED IN LOW POSITION. CALL LIGHT WITHIN REACH. WILL CONTINUE TO MONITOR THE PATIENT
[2019-02-23 07:21] LABS: ANION GAP 9.1 (8-16); CARBON DIOXIDE 30.8 mmol/L (21-32); POTASSIUM 3.9 mmol/L (3.5-5.1)
[2019-02-23 07:25] LABS: MAGNESIUM 1.8 mg/dL (1.8-2.4); PHOSPHORUS 2.8 mg/dL (2.5-4.9)
[2019-02-23 08:00] VITALS: BP 99/50
[2019-02-23] MEDS: SENNA 8.6 MG TAB PO SCH ×2 (09:00→21:43)
[2019-02-23] MEDS: DOCUSATE SODIUM 250 MG GELCAP PO SCH ×2 (09:00→21:44)
[2019-02-23] MEDS: POLYETHYLENE GLYCOL 17 GM/PKT PO SCH ×2 (09:00→21:43)
[2019-02-23] MEDS: LORazepam 1 MG TAB PO SCH ×2 (09:41→21:54)
[2019-02-23] MEDS: ZINC SULF 220 MG CAP PO SCH (09:41)
[2019-02-23] MEDS: ASCORBIC ACID 500 MG TAB PO SCH ×2 (09:42→21:43)
[2019-02-23] MEDS: LACTOBACILLUS RHAMNOSUS GG 1 EACH CAP PO SCH (09:42)
[2019-02-23] MEDS: risperiDONE 1 MG TAB PO SCH ×3 (09:42→17:56)
[2019-02-23] MEDS: QUEtiapine FUMARATE 100 MG TAB PO SCH ×3 (09:43→17:56)
[2019-02-23] MEDS: DIVALPROEX SPRINKLES 125 MG CAPDR PO SCH ×3 (09:43→17:55)
[2019-02-23] MEDS: FERROUS SULFATE 325 MG TABEC PO SCH ×2 (09:43→17:56)
[2019-02-23] MEDS: VANCOMYCIN HCL 750 MG in DEXTROSE 5% 250 ML IV SCH ×2 (09:44→21:47)
[2019-02-23] MEDS: NACL 0.9% IRR 250 ML BOTTLE IR SCH ×2 (09:44→21:46)
[2019-02-23] MEDS: guaiFENesin 600 MG TABER PO SCH ×2 (09:44→21:43)
[2019-02-23] MEDS: GAUZE TP SCH ×2 (09:45→21:46)
[2019-02-23] MEDS: HYDRAGUARD CREAM TP SCH ×2 (09:45→21:44)
--- NOTE | 2019-02-23 09:50 | NUR ---
ADMINISTERED MEDS W APPLE SAUCE. PATIENT TOLERATED WELL. EDUCATED ON SIDE EFFECTS. WILL CONTINUE TO MONITOR
--- NOTE | 2019-02-23 11:00 | NUR ---
PATIENT IN BED. LOSS PREVENTION AUDITOR CLEANSED THE PATIENT. HAD A BIG BM
--- NOTE | 2019-02-23 13:34 | NUR ---
PATIENT LAYING IN BED. TRYING TO GET OUT OF RESTRAINTS. REORIENTING PATIENT. BED ALARM ON
--- NOTE | 2019-02-23 15:00 | NUR ---
PATIENT ATTEMPTING TO BIT GROUND TRANSPORTATION OPERATOR AND TRYING TO GET OUT OF BED. REORIENTING PATIENT. PATIENT STILL ON RESTRAINTS.
[2019-02-23] MEDS ORDERED: LORazepam 2 MG/ML VIAL IM/IVP PRN (15:30)
--- NOTE | 2019-02-23 15:38 | NUR ---
CASE MANAGEMENT: FOLLOW UP CALL MADE TO CHECK ON STATUS OF THE APPEAL WITH [employer] @ [phone]. CASE CONTROL ID: [id number]. SPOKE WITH [employer], WHO CONFIRMED FAXED DOCUMENTS HAS BEEN RECEIVED. PER [employer], REVIEW IS STILL IN PROGRESS. POSSIBLY WILL HAVE OUTCOME OF THE APPEAL BY TOMORROW. CM TO FOLLOW UP TOMORROW.
[2019-02-23] MEDS: HYDROcodone/APAP 5/325 MG 1 TAB TAB PO PRN (15:39)
--- NOTE | 2019-02-23 15:41 | NUR ---
DC PLANNING: CLINICALS HAS BEEN FAXED TO JENNIFER MAGALLON @ [facility] CM TO FOLLOW UP NEEDED.
[2019-02-23 16:00] VITALS: BP 113/51
--- NOTE | 2019-02-23 17:58 | NUR ---
ADMINISTERED MEDS, PATIENT TOLERATED WELL
--- NOTE | 2019-02-23 18:37 | NUR ---
PATIENT SITTING IN BED. NO DISTRESS
--- NOTE | 2019-02-23 19:10 | NUR ---
GAVE BEDSIDE REPORT TO VENEER SORTER NURSE. PATIENT ENDORSED IN STABLE CONDITION
--- NOTE | 2019-02-23 19:10 | NUR ---
RECEIVED BEDSIDE REPORT FROM BACKER UP NURSE. PATIENT IS APHASIC. RESPIRATION EVEN UNLABORED ON ROOM AIR. SKIN IS WARM AND DRY. ABDOMEN WOUND NOTED. DRESSING DRY AND INTACT. PATIENT IV INFILTRATED. WILL START A NEW ONE. CALZADA CATHETER NOTED DRAINING YELLOW URINE. WRIST RESTRAINTS AND MITTENS ON. PLAN OF CARE UPDATED. ALL SAFETY MEASURES IN PLACE. BED IS AT LOW POSITION. CALL LIGHT WITHIN REACH. WILL CONTINUE TO MONITOR.
--- NOTE | 2019-02-23 20:00 | NUR ---
RELEASED RESTRAINTS FOR 15MINS TO ASSESS CIRCULATION.
--- NOTE | 2019-02-23 20:00 | NUR ---
INITIAL ASSESSMENT DONE. VITALS WERE TAKEN. PATIENT IN STABLE CONDITION. WILL CONTINUE TO MONITOR.
--- NOTE | 2019-02-23 20:30 | NUR ---
PATIENT IS FINALLY AWAKE, FED DINNER. PATIENT ATE 100% OF HIS DINNER.
--- NOTE | 2019-02-23 21:00 | NUR ---
ALL SCHEDULED MEDS WERE GIVEN PER ORDER. NO ASE NOTED. INSERTED NEW IV TO THE LEFT FA 222G. PATIENT TOLERATED IT WELL. WILL CONTINUE TO MONITOR.
[2019-02-23] MEDS: traZODone 50 MG TAB PO SCH (21:43)
--- NOTE | 2019-02-23 22:00 | NUR ---
RELEASED RESTRAINTS FOR 15MINS TO ASSESS CIRCULATION. PATIENT START PULLING HIS GOWN. WILL PUT IT BACK AGAIN.
--- NOTE | 2019-02-23 23:00 | NUR ---
PATIENT SLEEPING RESPIRATION EVEN UNLABORED ON ROOM AIR. NO DISTRESS NOTED. WILL CONTINUE TO MONITOR.
[2019-02-24] VITALS: BP 97/58
--- NOTE | 2019-02-24 | NUR ---
VITALS WERE TAKEN. PATIENT IN STABLE CONDITION. RELEASED RESTRAINTS FOR 15MINS TO ASSESS CIRCULATION. WILL CONTINUE TO MONITOR.
--- NOTE | 2019-02-24 01:00 | NUR ---
DRESSING CHANGED. PROVIDED GOOD PERICARE AND CATHETER CARE.
--- NOTE | 2019-02-24 02:18 | NUR ---
CHECKED ON PATIENT. PATIENT SLEEPING RESPIRATION EVEN UNLABORED ON ROOM AIR. NO DISTRESS NOTED. WILL CONTINUE TO MONITOR.
--- NOTE | 2019-02-24 04:00 | NUR ---
CHECKED ON PATIENT. RELEASED RESTRAINT FOR 15MINS. ASSESSED FOR CIRCULATION.
[2019-02-24] MEDS: LEVOTHYROXINE 0.112 MG TAB PO SCH (05:48)
[2019-02-24 06:45] LABS: BASOPHILS # (AUTO) 0.1 K/uL (0.00-0.22); BASOPHILS % (AUTO) 1.1 % (0.0-2.0); EOSINOPHILS # (AUTO) 0.3 K/uL (0-0.4); EOSINOPHILS % (AUTO) 4.3 % (0.0-4.0); HEMATOCRIT 33.1 % (36-52); HEMOGLOBIN 10.9 g/dL (12.0-18.0); LYMPHOCYTES # (AUTO) 1.3 K/uL (2.0-11.5); LYMPHOCYTES % (AUTO) 17.6 % (20.5-51.1); MEAN CORPUSCULAR HEMOGLOBIN 33 pg (27-31); MEAN CORPUSCULAR HGB CONC 33 g/dL (33-37); MEAN CORPUSCULAR VOLUME 99.8 fL (80-94); MONOCYTES # (AUTO) 0.5 K/uL (0.8-1.0); MONOCYTES % (AUTO) 6.3 % (1.7-9.3); NEUTROPHILS # (AUTO) 5.3 K/uL (1.8-7.7); NEUTROPHILS % (AUTO) 70.7 % (42.2-75.2); PLATELET COUNT (AUTO) 242 K/uL (140-450); RED BLOOD CELL COUNT(AUTO) 3.32 MIL/uL (4.20-6.10); RED CELL DISTRIBUTION WIDTH 17.1 % (11.6-13.7); WHITE BLOOD COUNT (AUTO) 7.5 K/uL (4.8-10.8)
[2019-02-24 07:06] LABS: MAGNESIUM 1.6 mg/dL (1.8-2.4); PHOSPHORUS 2.5 mg/dL (2.5-4.9)
[2019-02-24 07:10] LABS: ANION GAP 8.3 (8-16); CARBON DIOXIDE 31.2 mmol/L (21-32); CREATININE 0.9 mg/dL (0.7-1.3); POTASSIUM 3.5 mmol/L (3.5-5.1)
--- NOTE | 2019-02-24 07:15 | NUR ---
ENDORSED PATIENT TO DAY SHIFT NURSE. PATIENT IN STABLE CONDITION.
--- NOTE | 2019-02-24 07:15 | NUR ---
RECEIVED REPORT FROM NIGHT RN. PATIENT IS SLEEPING IN BED. PATIENT HAS RESTRAINTS OF MITTENS AND SOFT WRIST, RENEWAL AT 1405. PATIENT IS EDEMATOUS THROUGHOUT BODY WTIH A DISTENDED ABDOMEN. FULL CODE, LACTOSE INTOLERANT, ON ROOM AIR. WILL CONTINUE WITH PLAN OF CARE FOR THE DAY.
[2019-02-24] MEDS: QUEtiapine FUMARATE 100 MG TAB PO SCH ×3 (08:21→17:48)
[2019-02-24] MEDS: FERROUS SULFATE 325 MG TABEC PO SCH ×2 (08:21→17:48)
[2019-02-24] MEDS: guaiFENesin 600 MG TABER PO SCH (08:23)
[2019-02-24] MEDS: SENNA 8.6 MG TAB PO SCH (08:23)
[2019-02-24] MEDS: ASCORBIC ACID 500 MG TAB PO SCH (08:23)
[2019-02-24] MEDS: LORazepam 1 MG TAB PO SCH (08:24)
[2019-02-24] MEDS: DIVALPROEX SPRINKLES 125 MG CAPDR PO SCH ×3 (08:24→17:48)
[2019-02-24] MEDS: DOCUSATE SODIUM 250 MG GELCAP PO SCH (08:25)
[2019-02-24] MEDS: LACTOBACILLUS RHAMNOSUS GG 1 EACH CAP PO SCH (08:25)
[2019-02-24] MEDS: risperiDONE 1 MG TAB PO SCH ×3 (08:25→17:48)
[2019-02-24] MEDS: ZINC SULF 220 MG CAP PO SCH (08:26)
[2019-02-24] MEDS: ALBUTEROL SULFATE/IPRATROPIU 3 ML SOL IH SCH ×2 (08:37→14:57)
[2019-02-24] MEDS: VANCOMYCIN HCL 750 MG in DEXTROSE 5% 250 ML IV SCH (08:43)
[2019-02-24] MEDS: POLYETHYLENE GLYCOL 17 GM/PKT PO SCH (08:44)
--- NOTE | 2019-02-24 08:45 | NUR ---
ADMINISTERED MORNING MEDICATION. PATIENT TOOK MEDICATION WHOLE WITH PUDDING. PATIENT TOLERATED WELL.
--- NOTE | 2019-02-24 08:48 | NUR ---
DID NOT ADMINISTER MIRALAX D/T X4 BM OVER AVIATION SUPPORT EQUIPMENT REPAIRER.
--- NOTE | 2019-02-24 08:49 | NUR ---
pt not cooperative, refused vitals, RN assisted, pt still uncooperative.
[2019-02-24] MEDS: GAUZE TP SCH (09:00)
[2019-02-24] MEDS: NACL 0.9% IRR 250 ML BOTTLE IR SCH (09:00)
[2019-02-24] MEDS: HYDRAGUARD CREAM TP SCH (09:00)
[2019-02-24] MEDS: ALGINATE DRESSING MC SCH (09:00)
[2019-02-24] MEDS ORDERED: VANCOMYCIN PER PHARMACY MC PRN (10:10)
--- NOTE | 2019-02-24 10:27 | NUR ---
DC PLANNING Called & spoke bridgett Matta @ [facility], , Case# [id number], case is with Physician Reviewer pending outcome. Addendum: 02/24/19 at 1342 by Aleja Ny CM Follow up call made to Miguel, SPoke with [facility], Appeal outcome was " Physician reviewer has agreed to the termination of services". The Appeal was denied. Miguel will be informing patient's family regarding outcome.
--- NOTE | 2019-02-24 10:53 | NUR ---
DID WOUND CARE DRESSING TO PATIENTS ABDOMINAL WOUND. PATIENT TOLERATED WELL.
[2019-02-24] MEDS: MORPHINE SULFATE 2 MG/ML SYR IVP PRN ×2 (11:03→17:58)
--- NOTE | 2019-02-24 11:04 | NUR ---
ADMINISTERED MORPHINE FOR PAIN. PATIENT IS SCREAMING OUT AND CRYING. ALL OTHER NEEDS HAVE BEEN MET. BEDDING AND CHUX HAVE BEEN CHANGED, PATIENT HAS BEEN FED, NO OTHER NEEDS AT THIS TIME. WILL RE-ASSESS PAIN
--- NOTE | 2019-02-24 13:30 | NUR ---
DC PLANNING: PATIENT HAS BEEN ACCEPTED AT [facility]. ROOM [address]. ATTENDING MD WILL BE DR. FRY. CALL FOR REPORT P . Addendum: 02/24/19 at 1337 by Aleja Ny CM TRANSPORTATION NEEDS TO BE ARRANGED AFTER 7PM.
--- NOTE | 2019-02-24 13:35 | NUR ---
Dtp Operator Note: I called and spoke with patient's Vivien Goodrich , she is in agreement with patient's transfer to [facility] today, Live In Housekeeper Nanny Aleja.
[2019-02-24] MEDS ORDERED: MAGNESIUM OXIDE 400 MG TAB PO SCH (13:40)
--- NOTE | 2019-02-24 14:00 | NUR ---
PATIENT IS AGITATED. SITTER AT BEDSIDE FEEDING PATIENT HIS LUNCH
--- NOTE | 2019-02-24 14:11 | NUR ---
ADMINISTERED AFTERNOON MEDICATION WHOLE WITH PUDDING. PATIENT TOLERATED WELL. PATIENT IS RESTING QUIETLY IN BED. NO COMPLAINTS AT THIS TIME. WILL CALL SOON TO GIVE REPORT TO [facility].
--- NOTE | 2019-02-24 14:30 | NUR ---
TRANSPORTATION HAS BEEN SETUP WITH [facility] @ . LABORER OPERATOR TIME IS AT 8PM.
--- NOTE | 2019-02-24 15:06 | NUR ---
CALLED JENNIFER SCHULTE AND GAVE REPORT TO JORY FLOWERS. INFORMED HER OF PATIENTS STATUS AND CARE. ANSWERED ALL QUESTIONS. WILL ENDORSE TO NEXT SHIFT
[2019-02-24] MEDS ORDERED: INFLUENZA VACCINE QUAD 0.5 ML SYR IMVAC PRN (15:15)
--- NOTE | 2019-02-24 15:17 | NUR ---
OBTAINED ORDER FOR FLU VACCINATION TO ADMINISTER UPON DISCHARGE. WILL ENDORSE TO RUNNER MAN NURSE.
[2019-02-24] MEDS: HYDROcodone/APAP 5/325 MG 1 TAB TAB PO PRN (15:33)
--- NOTE | 2019-02-24 15:34 | NUR ---
ADMINISTERED NORCO FOR PAIN 6/10. PATIENT IS SCREAMING OUT AND ALL NEEDS HAVE BEEN MET. WILL RE-ASSESS PAIN LEVEL
[2019-02-24 16:00] VITALS: BP 100/71
[2019-02-24] MEDS ORDERED: [UNRECOGNIZED DRUG - CODE] IV (16:35)
--- NOTE | 2019-02-24 17:49 | NUR ---
TOOK DISCHARGE PHOTOS OF PATIENTS ABDOMINAL WOUND. CHANGED GAUZE DRESSING ON IT.
--- NOTE | 2019-02-24 17:59 | NUR ---
MEDICATED PATIENT FOR PAIN 12/10, PATIENT IS CRYING OUT. WILL RE-ASSESS
--- NOTE | 2019-02-24 19:10 | NUR ---
Received endorsement from AM shift RN; patient A/Ox0, mentally disabled, bedbound, mittens in place. Introduced self, updated board, no SOB or distress noted, on room air. IV site on left forearm, 22 gauge, saline locked. Coburn catheter in place. Skin non-intact; noted with chronic abdomen wound, covered with gauze and abdominal pad. Bed in the lowest position, call light within reach. Initial assessment done. Will continue to monitor.
[2019-02-24 20:00] VITALS: BP 101/72
--- NOTE | 2019-02-24 20:56 | NUR ---
[facility] arrived to black pickler patient. Discharge packet given, ID bands removed. IV site left intact. Patient discharged from unit via gurney, patient vitals stable upon discharge.
[2019-02-24] MEDS ORDERED: VANCOMYCIN HCL 750 MG in DEXTROSE 5% 250 ML IV SCH (21:00)
[2019-02-24] MEDS ORDERED: LORazepam 1 MG TAB PO SCH (21:00)
== END 2019-02-24 20:55 | DRG 862 ==
LOC: MED 13:29 → MTU 19:19
PROVIDERS: ADMIT General Practice; ATTEND General Practice
PROC: 0W9G3ZZ Drainage of Peritoneal Cavity, Percutaneous Approach (ICD-10-PCS; principal; 2019-02-22)
DX: T81.41XA Infection following a procedure, superficial incisional surgical site, initial encounter (principal); J69.0 Pneumonitis due to inhalation of food and vomit; E43 Unspecified severe protein-calorie malnutrition; L03.311 Cellulitis of abdominal wall; R18.8 Other ascites; L02.211 Cutaneous abscess of abdominal wall; Z68.23 Body mass index [BMI] 23.0-23.9, adult; B95.61 Methicillin susceptible Staphylococcus aureus infection as the cause of diseases classified elsewhere; E03.9 Hypothyroidism, unspecified; E73.9 Lactose intolerance, unspecified; N20.0 Calculus of kidney; Q90.9 Down syndrome, unspecified; I95.9 Hypotension, unspecified; D64.9 Anemia, unspecified; K59.00 Constipation, unspecified; E87.5 Hyperkalemia; Y65.8 Other specified misadventures during surgical and medical care; Y92.89 Other specified places as the place of occurrence of the external cause
CPT/HCPCS: 36415; 71045; 74018; 76705; 80048; 80053; 80202; 80305; 81003; 82272; 82550; 82607; 82728; 82746; 83036; 83540; 83605; 83690; 83735; 83880; 84100; 84439; 84443; 85025; 85045; 85610; 85730; 86704; 86706; 86708; 86709; 86803; 87040; 87070; 87075; 87081; 87186; 87205; 87340; 93005; 93970; 94640; 96361; 96374; 99285; A4649; J1630; J1644; J1940; J2060; J2270; J2543; J2704; J3010; J3370; J7030; J7060; J7620; Q0092; Q9967